=== PATIENT | female | born 1980 | race African-American/Black ===

== ENCOUNTER 2020-10-04 12:31 | Day surgery (SDC) | payer OTHER, SELFPAY ==
[2020-09-28 18:38] VITALS: BMI 45.1
--- NOTE | 2020-10-03 09:38 | P.CONAN_ITS ---
Documented by User: Theresa Reaganney 10/03/20 09:39 HPI - Anesthesia Eval Consult details Narrative: 40yo F for Upper Endoscopy [facility] Past Medical History Medical History COVID-19 (~05/2020) GERD (gastroesophageal reflux disease) Surgical History Surgical History Previous section (2007) Social History Social History Smoking Status: Never smoker Second Hand Smoke Exposure: No Use of substances other than those prescribed or required for medical reasons: No Advance Directives: No Advance Directives Information Provided: No Advance Directives on File: No Recently lost weight without trying: No Meds Allergies Allergy/AdvReac Type Severity Reaction Status Date / Time No Known Allergies Allergy Unverified 08/02/20 15:13 Environmental Allergy Unknown Uncoded 12/28/17 00:00 Exam Exam Date and Time: October 03, 2020 0938 Height,Weight and Vital Signs: Height 5 ft 6 in Weight 127.006 kg Assessment and Plan Assessment Anesthesia Assessment: Chart Reviewed Documented by User: Johnny Rivera MD 10/04/20 13:32 [facility] Past Medical History Medical History COVID-19 (~05/2020) GERD (gastroesophageal reflux disease) Surgical History Surgical History Previous section (2007) Social History Social History Smoking Status: Never smoker Second Hand Smoke Exposure: No Use of substances other than those prescribed or required for medical reasons: No Advance Directives: No Advance Directives Information Provided: No Advance Directives on File: No Recently lost weight without trying: No Meds Allergies Allergy/AdvReac Type Severity Reaction Status Date / Time No Known Allergies Allergy Unverified 08/02/20 15:13 Environmental Allergy Unknown Uncoded 12/28/17 00:00 Exam Airway Mallampati Class: III TM Dist: >3cm Neck ROM: Full Loose/Missing/Broken Teeth: No Heart: rrr Lungs: nl Other: ao Assessment and Plan Assessment Anesthesia Assessment: Anesthesia Plan Discussed and Chart Reviewed Final Anesthetic Review NPO: Yes ASA Class: III Final Preanesthetic Review: No Changes in Pt Med Stat, Meds/Allgs Chart Reviewed, Consent Obtained/Reviewed and Anes Risks/Benef Reviewed Patient Risk: Intermediate Procedure Risk: Low Anesthetic Plan Anesthetic Plan: MAC: Disposition: Standard PACU
[2020-10-04 12:55] VITALS: BP 122/79; PULSE 83; RESP 16; TEMP 36.3; O2SAT 97
[2020-10-04] MEDS: Lactated Ringers 1,000 ML 100 ML IVCONT (13:01)
--- NOTE | 2020-10-04 13:29 | MHC.SHP ---
Pre-Procedural Eval Section B Chief Complaint: Gerd Relevant Family History (Specify if Yes): No Relevant Social History: None Present Medications: see Short Stay Collaborative assessment Medical History: Significant History (obesity, HAYLEE, GERD) History of Previous Operations: Relevant previous surgery/procedure and date(s) () Allergies: Allergies Allergy/AdvReac Type Severity Reaction Status Date / Time No Known Allergies Allergy Unverified 08/02/20 15:13 Environmental Allergy Unknown Uncoded 12/28/17 00:00 Review of Systems Sugical H&P ROS: Negative: Constitution, Cardiovascular, Respiratory, Neurological, Psychiatric, Hem-Onc, Allergic/Immunologic, Gastrointestinal, Genitourinary, Musculoskeletal, Integumentary, Endocrine and Eyes/Ears/Nose/Throat Exam Surgical H&P Exam: Normal: HEENT, Normal: Heart, Normal: Lungs, Normal: Extremities, Normal: Abdomen, Normal: Skin and Normal: Neurological Plan Diagnosis/Plan: Unchanged Patient has been examined and remains a candidate for the planned procedure
--- NOTE | 2020-10-04 13:31 | PM.OP ---
Brief Operative Note Date of Service: 10/04/20 Pre-op diagnosis: GERD Post-op diagnosis: same Procedure: see op note Surgeon: Meche Dang MD Anesthesia: MAC Estimated blood loss (mL): 0 Condition: stable Disposition: PACU
--- NOTE | 2020-10-04 13:31 | W.PM.OPN ---
Operative Note Operative Note Date of Service: 10/04/20 Narrative: Procedure Description: EGD FLEXIBLE TRANSORAL UPPER GASTROINTESTINAL ENDOSCOPY UPPER ENDOSCOPY Consent: Indications for the procedure and potential complications of bleeding, perforation, reaction to medications and missed diagnosis were discussed with the patient and informed consent was obtained. Instrument: Olympus GIF H 190 J mid size upper endoscope Monitoring: Vital signs and clinical assessment, continuous EKG monitoring, Pulse oximetry, Carbon Dioxide monitoring and blood pressure monitoring were done throughout the procedure. Procedure: The patient was placed in the left lateral decubitis position and pre-procedure medications were administered and a bite block was placed. The endoscope was inserted into the mouth and advanced under direct vision to the third part of duodenum. A careful inspection was made as the upper endoscope was withdrawn including a retroflexed examination of the proximal stomach; Findings and interventions are described below. Findings: Larynx:normal Esophagus: GE junction at 38 cm, diaphragm hiatus at 38 cm, LA grade A esophagitis bx taken from GEJ and random esophagus in seperate jars Stomach: normal mucosa. Biopsies were obtained. Grade 2 flap valve on retroflexed examination of the cardia. Duodenum: Moderate severe duodenitis in bulb and proximal second part of duodenum also nodular area noted. Bx taken from nodular area in different jar and random bx taken of bulb and second part. Intervention: Biopsies as noted above Impression/Findings: duodenitis, possible peptic injury esophagitis PLAN: 1/ High dose PPi for 3 months 2/ if h pylori pos treat 3/ check nsaid hx 4/ repeat EGD in 3 months and also book with side viewer scope to assess papilla and second part in more detail, side viewer not readily available today.
[2020-10-04 14:06] LABS: COVID-19 Test Negative (Negative)
[2020-10-04 14:51] VITALS: BP 126/80; PULSE 110; RESP 16; TEMP 36.1; O2SAT 99
[2020-10-04 15:06] VITALS: BP 127/83; PULSE 81; RESP 16; O2SAT 100
[2020-10-04 15:18] VITALS: BP 123/79; PULSE 80; RESP 16; TEMP 36.3; O2SAT 99
== END 2020-10-04 15:44 | disposition home or self-care (01) ==
PROVIDERS: PCP Nurse Practitioner Family; Visit Provider Internal Medicine Gastroenterology
PROC: 0DJ08ZZ Inspection of Upper Intestinal Tract, Via Natural or Artificial Opening Endoscopic (ICD-10-PCS; CPT 43235; principal; 2020-10-04 13:30)
DX: K21.00 Gastro-esophageal reflux disease with esophagitis, without bleeding (principal); K29.80 Duodenitis without bleeding; K31.7 Polyp of stomach and duodenum; K44.9 Diaphragmatic hernia without obstruction or gangrene; Z86.19 Personal history of other infectious and parasitic diseases; Z79.899 Other long term (current) drug therapy
CPT/HCPCS: 43239; 87635; 88305; 88342

== ENCOUNTER → 2020-11-02 14:11 | Outpatient (BNVA) | payer OTHER, MEDICAID, SELFPAY | PROVIDERS: PCP Nurse Practitioner Family; Referring Provider Nurse Practitioner Family; Visit Provider Nurse Practitioner ==

== ENCOUNTER → 2021-01-30 13:22 | Outpatient (BNVA) | payer OTHER, MEDICAID, SELFPAY | PROVIDERS: PCP Nurse Practitioner Family; Visit Provider Nurse Practitioner ==

== ENCOUNTER 2021-06-04 16:57 | Outpatient (REF) | payer OTHER, MEDICAID, SELFPAY ==
--- NOTE | ~2021-06-04 | XR_ITS ---
EXAMINATION: XR FOOT, LEFT CLINICAL INFORMATION: Pain in left foot. COMPARISON: None TECHNIQUE: AP, lateral, and oblique views of the left foot. FINDINGS: No fracture. No dislocation. Joint spaces are normal. There is a small plantar calcaneal spur. XR/XR foot LT min 3V IMPRESSION: Small plantar calcaneal spur. Left foot is otherwise normal.
== END 2021-06-04 16:58 | disposition home or self-care (01) ==
LOC: HO.HMGCX 16:57
PROVIDERS: PCP Nurse Practitioner Family; Visit Provider Nurse Practitioner Family
DX: M79.672 Pain in left foot (principal)
CPT/HCPCS: 73630

== ENCOUNTER 2021-10-08 13:51 | Outpatient (REF) | payer OTHER, SELFPAY ==
[2021-10-08 15:19] LABS: Influenza A PCR NEGATIVE (Negative); Influenza B PCR NEGATIVE (Negative); Resp Syncy Virus RNA Qual PCR NEGATIVE (Negative); SARS COV2 PCR INHOUSE NEGATIVE (Negative)
== END 2021-10-08 13:52 | disposition home or self-care (01) ==
LOC: HO.LNP 13:51
PROVIDERS: Visit Provider Internal Medicine
DX: Z20.822 Contact with and (suspected) exposure to COVID-19 (principal); R43.9 Unspecified disturbances of smell and taste
CPT/HCPCS: 0241U

== ENCOUNTER 2022-12-03 11:34 | Outpatient (REF) | payer OTHER, SELFPAY ==
[2022-12-03 13:59] LABS: MANUAL DIFF FLAG NO
[2022-12-03 14:01] LABS: Appearance Urine Clear; Color Urine Yellow; Glucose Urine UA Negative (Negative); Leukocyte Esterase Urine Small (1+) (Negative); Nitrite Urine Negative (Negative); Specific Gravity - Urine 1.025 (1.005-1.025); UMIC TRIGGER UACC YES; Urine Blood Trace (Negative); Urine Ketones Negative (Negative); Urine Protein Negative (Neg-Trace)
[2022-12-03 14:08] LABS: Basophils Absolute Auto 0.1 X10*3/uL (0.0-0.2); Basophils Percent Auto 0.7 % (0-2); Eosinophils Absolute Auto 0.2 X10*3/uL (0.0-0.4); Eosinophils Percent Auto 2.2 % (0-4); Hematocrit 41.9 % (37.0-47.0); Hemoglobin 13.3 g/dl (12.0-16.0); Imm Gran Abs Auto 0.03 X10*3/uL (0.00-0.03); Imm Gran Pct Auto 0.3 % (0.0-0.4); Lymphocytes Absolute Auto 2.8 X10*3/uL (1.2-4.9); Mean Corpuscular HGB Conc 31.7 g/dl (31.0-35.0); Mean Corpuscular Hemoglobin 29.3 pg (27.0-33.0); Mean Corpuscular Volume 92.3 fL (80.0-98.0); Mean Platelet Volume 10.5 fL (9.4-12.3); Monocytes Absolute Auto 0.4 X10*3/uL (0.1-1.2); Monocytes Percent Auto 4.6 % (2-11); Neutrophils Absolute Auto 5.3 x10*3/uL (2.0-8.3); Neutrophils Percent Auto 60.2 % (45-73); Platelet Count 276 X10*3/uL (160-400); Red Blood Count 4.54 X10*6/uL (4.20-5.50); Red Cell Distribution Width 12.7 % (11.0-16.0); White Blood Count 8.8 X10*3/uL (4.8-10.8)
[2022-12-03 14:19] LABS: Bacteria Urine Trace (None Seen); Hyaline Casts Urine 0-2 /LPF (0-2); UACC Culture Trigger YES; WBC Urine 0-5 /HPF (0-5)
[2022-12-03 14:32] LABS: Alanine Aminotransferase 17 U/L (0-31); Albumin Level 3.9 g/dL (3.5-5.0); Alkaline Phosphatase 75 U/L (39-117); Anion Gap 10 (12-20); Aspartate Amino Transferase 20 U/L (5-31); Bilirubin Total 1.3 mg/dL (0.0-1.0); Blood Urea Nitrogen 11 mg/dL (9-16); Carbon Dioxide 26 mmol/L (22-29); Chloride 106 mmol/L (96-108); Cholesterol 108 mg/dL; Estimated Glomerular Filt Rate > 60; Glucose Fasting 90 mg/dL (60-99); HDL Cholesterol 39 mg/dL; LDL Cholesterol Calculated 61 mg/dl; Potassium 4.3 mmol/L (3.3-5.1); Sodium 138 mmol/L (135-145); Total Protein 7.1 g/dL (6.5-8.0); Triglycerides 42 mg/dL
[2022-12-03 14:39] LABS: TSH reflex Free T4 2.23 uIU/mL (0.32-4.0)
== END 2022-12-03 11:35 | disposition home or self-care (01) ==
LOC: HO.HMGCLDS 11:34
PROVIDERS: PCP Nurse Practitioner Family; Visit Provider Nurse Practitioner Family
DX: R00.2 Palpitations (principal)
CPT/HCPCS: 36415; 80053; 80061; 81001; 81003; 84443; 85025; 87086

== ENCOUNTER → 2022-12-26 07:48 | Outpatient (REF) | payer OTHER, SELFPAY ==
--- NOTE | 2022-12-26 07:52 | HM_ITS ---
Conclusion: 1. Patient was monitored for total period of 4 days and 22 hours 2. Baseline was normal sinus rhythm with average heart of 93 beats per minute 3. No significant pauses or bradycardia noted 4. Rare PACs noted 5. Total of 2210 PVCs accounting for 0.58% total beats account for occasional PVCs 6. Patient reported 4 events which correlated with sinus rhythm MTDD
--- NOTE | 2022-12-26 07:52 | CA_ITS ---
Transthoracic Echocardiogram Patient (Last, First, Middle): Silvana Ruiz M Gender: Female Date of : 1980 Age: 42 Procedure Date: 12/26/2022 Procedure Type: Transthoracic Echocardiogram Location: OP Height: 167.64 cm Weight: 116.12 kg BSA: 2.22 m2 Heart Rate: 78 bpm BP: 122 / 78 mmHg Surgical Territory Manager: SB Referring MD: Herman Clark [facility] Elevator Installer Apprentice: Elmer Moraes MD Symptoms: Z82.49 - Family history of ischemic heart disease and other diseases of ... Study Quality: Adequate ECG Rhythm: Sinus Conclusions: - Essentially normal study Findings Left Ventricle Normal left ventricular size, thickness, and systolic function. The visually estimated ejection fraction is between 60-65%. Spectral Doppler is indicative of a normal filling pattern. Right Ventricle Normal right ventricular cavity size and systolic function. Atria Both atria are normal in size. Interatrial shunt cannot be excluded. Aortic Valve Normal aortic valve structure and function. There is no aortic valve stenosis. There is no aortic valve regurgitation. Mitral Valve Normal mitral valve structure and function. There is trace mitral valve regurgitation. There is no mitral valve stenosis. Pulmonic Valve The pulmonic valve is likely normal. Tricuspid Valve Normal tricuspid valve structure. Tricuspid regurgitation envelope is inadequate for calculation of right ventricular systolic pressure. Normal right atrial pressure. Great Vessels All visible segments of the aorta are normal in size. The pulmonary artery was not well visualized. Venous The inferior vena cava is normal in size and collapses greater than 50% with inspiration. Pericardium/Pleural There is no evidence of pericardial effusion. Prior Study Comparison No significant change compared to prior study dated: 12/08/2017. Measurements 2D Linear Measurements IVSd: 1.11 0.6-0.9/0.6-1.0 cm LVIDd: 3.70 3.9-5.3/4.2-5.9 cm LVIDd Index: 1.67 2.4-3.2/2.2-3.1 cm/m2 LVIDs: 2.45 2.0-3.6 cm LVPWd: 0.72 0.7-1.1 cm LA Diam: 3.60 2.7-3.8/3.0-4.0 cm LAIDs Index: 1.62 1.5-2.3 cm/m2 LV Mass: 123.29 67-162/88-224 g LV Mass Index: 55.54 43-95/49-115 g/m2 LVOT Diam: 2.30 3.0+(-)1.3 cm 2D Systolic Function EF 4C: 59.80 >55% EF 2C: 64.40 >55% EF BiP: 62.20 >55% Mitral Valve MV Pk E: 1.20 MV PK A: 0.66 MV Decel Time: 188.00 E/A: 1.80 E'Lateral: 12.10 E'Medial: 13.70 E/E' Med: 8.80 E/E' Lat: 9.90 PHT: 55.00 MVA PHT: 4.00 Decel Treutlen: 6.41 Aortic Valve AoV Pk Ketan: 1.40 AoV Pk Grad: 8.00 KIAN: 3.65 LVOT LVOT Pk Ketan: 1.23 LVOT Mn Ketan: 0.75 LVOT VTI: 0.24 LVOT Pk Grad: 6.00 LVOT Mn Grad: 3.00 LVOT Diam: 2.30 LVOT Area: 4.15 Diastolic Function MV Pk E: 1.20 MV Pk A: 0.66 E/A: 1.80 E'Medial: 13.70 E/E' Med: 8.80 E' Laterial: 12.10 E/E' Lat: 9.90 Right Ventricle TAPSE (mm): 25.30 TVS' Ketan: 14.80 Tricuspid Valve RA Press: 3.00 Great Vessels Aorta Sinus of Valsalva: 2.70 2.0-3.[address] Ridge: 2.19 1.7-3.4 cm Ao Asc: 2.80 2.1-3.4 cm Pulmonary Veins Pulm Vein S/D 1.30 Pulmonary Valve PV Pk Ketan: 1.27 Peak PV Grad: 6.00 Updated in Other Vendor System with Status of Final Elmer Moraes MD electronically signed on 12/27/2022 1:55:38 PM with status of Final
== END ==
LOC: HO.CARD 07:48
PROVIDERS: PCP Nurse Practitioner Family; Visit Provider Nurse Practitioner Family
DX: R00.2 Palpitations (principal); Z82.49 Family history of ischemic heart disease and other diseases of the circulatory system
CPT/HCPCS: 93242; 93306

== ENCOUNTER → 2022-12-31 07:48 | Outpatient (REF) | payer OTHER, SELFPAY ==
--- NOTE | ~2022-12-31 | NM_ITS ---
Exercise Myocardial perfusion study Indication: Family history of ischemic heart disease to evaluate for myocardial ischemia Technique: The patient was brought in for an exercise perfusion study on 12/31/2022. Patient performed exercise as per Anurag protocol and was injected 40 mCi of sestamibi was given intravenously one target HR was achieved. Images were obtained using the SPECT gamma camera interlaced with the gating device. Images were obtained in supine position. Resting perfusion study was performed on 01/06/2023. Patient was administered 40 mCi of sestamibi intravenously at rest. Images were then obtained in supine position. Images obtained with and without CT attenuation. Total DLP 186 mGy-cm. Images were processed with the software and compared side to side in short axis, horizontal long axis and vertical long axis views. Findings: The stress perfusion study showed non attenuated images show some thinning of the distal lateral wall and inferoapical wall of the LV myocardium with minimal thinning of the inferior wall. Attenuation corrected images show normal uptake of radiotracer in all segments of LV myocardium.. The gated study shows normal LV systolic function with calculated LVEF of 63%. LV cavity is normal in size. The gated study shows normal systolic wall thickening and contraction of all segments. There is no transient ischemic dilation. Resting study shows non attenuated images show moderately reduced uptake in the distal lateral wall and mildly reduced uptake in the lateral wall of the LV myocardium. Attenuation corrected images show thinning of the distal anterior wall of the LV myocardium.. Gating at rest reveals normal systolic wall motion with ejection fraction at 54%. The findings are consistent with likely normal myocardial perfusion. NM/NM cardiolite stress test Impression: 1. Normal myocardial perfusion 2. Gated LVEF is 63% 3. Transient ischemic dilatation not present Stress EKG is negative for ischemia
--- NOTE | 2022-12-31 07:52 | CA_ITS ---
Acquisition Time: 2022-12-31 07:57:29 Total Exercise Time: 00:05:03 Test Indications: Z82.49 Medications: SEE H Protocol: SUSHMA Max HR: 169 BPM 94% of Pred: 179 BPM Max BP: 148/072 mmHG Max Work Load: 7.0 METS Exercise stress test with exercise 5 min 3 sec of Sushma protocol, achieving 92% MPHR, with mild sob, no chest discomfort, with isolated PVC at rest and in recovery, with normotensive response to exercise, without EKG changes meeting criteria for ischemia. Nuclear images pending. Test reviewed with Dr Obrien. Referred By: Herman Clark Overread By: JULISSA BHATTI
== END ==
LOC: HO.CARD 07:48
PROVIDERS: Visit Provider Nurse Practitioner Family
DX: R00.2 Palpitations (principal); R06.02 Shortness of breath; Z82.49 Family history of ischemic heart disease and other diseases of the circulatory system
CPT/HCPCS: 78452; 93017; A9500

== ENCOUNTER 2023-04-23 14:00 | Outpatient (REF) | payer OTHER, SELFPAY | END 2023-04-23 14:01 | disposition home or self-care (01) | LOC: HO.SH 14:00 | PROVIDERS: Visit Provider Nurse Practitioner Family | DX: H90.3 Sensorineural hearing loss, bilateral (principal) | CPT/HCPCS: 92557; 92567; 92588; 92700 ==

== ENCOUNTER 2023-07-21 09:47 | Outpatient (AMB) | payer OTHER, SELFPAY ==
[2023-07-21 10:01] VITALS: BP 100/68; PULSE 72; O2SAT 98; BMI 43.0
--- NOTE | 2023-07-21 10:01 | MHC.PC.OV ---
Vital Signs 07/21/23 10:01 Height 5 ft 6 in Weight 266 lb 4 oz BMI 43.0 BP 100/68 Blood Pressure Location Rt brachial Position Sitting Pulse 72 Pulse Source Pulse Oximeter Pulse Oximetry (%) 98 Oxygen Delivery Method Room Air Intake Visit Reasons: 6m follow up Allergies No Known Allergies Allergy (Verified 07/21/23 10:04) Environmental Allergy (Unknown, Uncoded 07/21/23 10:04) none Tobacco use date assessed: 07/21/23 Dental Screening Dental Screen Date: 07/21/23 Did you have a dental visit in the last 12 months?: Yes Did you have a dental problem in the last 6 months where you did not have access to dental care?: No Was dental information given to patient?: Patient has dentist HPI 6m follow up HPI Details Pt c/o increased anxiety and panic. She reports being very anxious about her health and is afraid she is going to . team spoke with pt and will set her up with a psychiatrist and therapist. Denies any SI and HI. Was mentioning tachycardia/palpitations, previous holter showed 4 documented episodes, which correlated to NSR/ PFSH Medical History COVID-19 (~05/2020) GERD (gastroesophageal reflux disease) Surgical History History of esophagogastroduodenoscopy (EGD) Previous section (2007) Family History Father Seizure HTN (hypertension) Diabetes Mother Diabetes HTN (hypertension) S/P triple vessel bypass Daughter Mental health disorder Social History Housing: Apartment Alcohol intake: current Alcohol intake frequency: does not drink Patient Tobacco Use Status: Never used Tobacco e-Cigarette/Vaping Use: Never Used Second Hand Smoke Exposure: No service: No Current occupational status: employed Current occupation: [employer] Current occupational exposures/hazards: Yes Cognitive needs: No Hearing needs: No Vision needs: No Questionnaire Thrive Questionnaire Date Thrive assessed: 01/22/23 PA-7 AMB Questionnaire PA-7 Date PA - 7 assessed: 01/22/23 Source: Developed by Drs. Artie Wheeler, Serina Torres, Jase Sandoval and colleagues, with an educational dennise from [employer]. Review of Systems Const Reports as per HPI Physical exam (Primary Care) Vital Signs: Last Vital Signs Pulse 72 07/21/23 10:01 BP 100/68 07/21/23 10:01 Pulse Ox 98 07/21/23 10:01 Oxygen Delivery Method Room Air 07/21/23 10:01 BMI result Body Mass Index 43.0 Tobacco/Smoking Status: Tobacco use Status Tobacco use date assessed 07/21/23 07/21/23 10:06 Patient Tobacco Use Status Never used Tobacco 07/21/23 10:06 e-Cigarette/Vaping Use Never Used 07/21/23 10:06 Thrive Assessment: Date of Thrive Assessment Date Thrive assessed 01/22/23 07/21/23 10:06 Const General: cooperative Nutritional Appearance: obese morbidly obese Orientation/consciousness: patient oriented x3 Resp Effort & Inspection: normal respiratory effort Auscultation: clear to auscultation bilaterally Cardio Rate: regular rate Rhythm: regular rhythm Heart sounds: S1 normal heart sound present and S2 normal heart sound present Neuro General: patient oriented x3 Psych Appearance: grossly normal Mental Status: mental status grossly normal Speech and movement: Normal speech and movement present Affect: normal affect Attitude: cooperative Thought process: Normal thought process present Thought content: Normal thought content present Insight: Good insight present (Psych) Judgement: Good judgement present (Psych) Assessment and Plan Assessment & Plan (1) Anxiety about dying: Code(s): F41.8 - Other specified anxiety disorders Plan: psychiatrist and therapist Plan The patient agreed to the use of a emergency medicine medical director for this encounter. Scribed for JAYCEE Bond by uSe Wheeler emergency medicine medical director, on 07/21/2023 at 10:10 EST. Coding Level of Care Code Est Pt Level 3 (28409) Diagnoses Anxiety about dying F41.8
== END 2023-07-21 10:52 | disposition home or self-care (01) ==
PROVIDERS: Visit Provider Nurse Practitioner Family
DX: F41.8 Other specified anxiety disorders (principal)
CPT/HCPCS: 99213

== ENCOUNTER 2023-08-12 12:53 | Outpatient (AMB) | payer OTHER, SELFPAY ==
--- NOTE | 2023-08-12 13:52 | AM.OFFWIN_ITS ---
Intake Vital Signs 08/12/23 13:56 Height 5 ft 6 in Weight 266 lb BMI 42.9 BP 120/80 Blood Pressure Location Rt brachial Position Sitting Pulse 89 Pulse Source Pulse Oximeter Temp 97.1 F Temp Source Temporal Artery Scan Pulse Oximetry (%) 99 Oxygen Delivery Method Room Air Intake Visit Reasons: EP RT FT ?Sprain [phone] Intake Note: Pt states she was walking at the [employer] yesterday when she started experiencing right foot pain. Pt states she is not able to walk on her right foot. Patient Tobacco Use Status: Never used Tobacco Allergies No Known Allergies Allergy (Verified 08/12/23 13:52) Environmental Allergy (Unknown, Uncoded 08/12/23 13:52) none Do you need a note to return to daycare/school/sports/work: Yes HPI EP RT FT ?Sprain [phone] HPI Details 43-year-old female patient presents toda with right lateral foot pain. This started yesterday while walking a large distance while at the [employer] fair. 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 She denies any trauma to foot. 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 She was recently started on Pyroxicam, however has not started this yet. Denies any swelling, cracking, or weakness of right foot/ankle. [facility] Medical History COVID-19 (~05/2020) GERD (gastroesophageal reflux disease) Surgical History History of esophagogastroduodenoscopy (EGD) Previous section (2007) Family History Father Seizure HTN (hypertension) Diabetes Mother Diabetes HTN (hypertension) S/P triple vessel bypass Daughter Mental health disorder Social History Housing: Apartment Alcohol intake: current Alcohol intake frequency: does not drink Patient Tobacco Use Status: Never used Tobacco e-Cigarette/Vaping Use: Never Used Second Hand Smoke Exposure: No service: No Current occupational status: employed Current occupation: [employer] Current occupational exposures/hazards: Yes Cognitive needs: No Hearing needs: No Vision needs: No Review of Systems Const All systems reviewed & are unremarkable except as noted in HPI and below Physical Exam Vital Signs: Last Vital Signs Temp 97.1 F 08/12/23 13:56 Pulse 89 08/12/23 13:56 BP 120/80 08/12/23 13:56 Pulse Ox 99 08/12/23 13:56 Oxygen Delivery Method Room Air 08/12/23 13:56 BMI result Body Mass Index 42.9 Const General: cooperative, healthy appearing and no acute distress Resp Effort & Inspection: normal respiratory effort and able to speak in complete sentences Skin General skin exam: no rashes or lesions noted Extrem Right lower extremity: normal to inspection, no joint enlargement and foot (pain with dorsiflexion and with ambulation lat right ankle/talus region) Details: normal capillary refill Psych Appearance: grossly normal Mental Status: mental status grossly normal Speech and movement: Normal speech and movement present Assessment & Plan Assessment & Plan (1) Right ankle pain: Code(s): M25.571 - Pain in right ankle and joints of right foot Qualifiers: Chronicity: acute Qualified Code(s): M25.571 - Pain in right ankle and joints of right foot Plan: Right lateral ankle/foot pain, just inferior to right lateral malleolus. X-ray obtained in office does not reveal any fractures. This is likely overuse injury/plantar fasciitis. I applied Matti wrap to patient's ankle/foot, and encouraged her to start previously prescribed Piroxicam. I also advised her to ice and elevate the extremity this evening, and provided her with a work note to stay home tomorrow. She does have a precision aircraft systems assembler who she sees regularly, and I encouraged she follow-up with this provider or her PCP as needed if pain does not improve with time and conservative measures. She verbalizes understanding and agrees to plan. XR: Moderate sized enthesopathic spur at the plantar fascial origin on the calcaneus. Coding Level of Care Code Est Pt Level 3 (53336) Diagnoses Acute right ankle pain M25.571 Chronicity: acute
[2023-08-12 13:56] VITALS: BP 120/80; PULSE 89; TEMP 36.2; O2SAT 99; BMI 42.9
== END 2023-08-12 14:52 | disposition home or self-care (01) ==
PROVIDERS: PCP Nurse Practitioner Family; Visit Provider Nurse Practitioner Family
DX: M25.571 Pain in right ankle and joints of right foot (principal)
CPT/HCPCS: 99213

== ENCOUNTER 2023-08-12 14:20 | Outpatient (REF) | payer OTHER, SELFPAY ==
--- NOTE | ~2023-08-12 | XR_ITS ---
EXAMINATION: XR ANKLE, RIGHT CLINICAL INFORMATION: Pain in the right ankle and joints of the right foot. COMPARISON: None available. TECHNIQUE: AP, lateral, and mortise views of the right ankle. FINDINGS: No fracture. Alignment is anatomic. No erosions. Joint spaces are maintained. Moderate sized enthesopathic spur is present at the plantar fascial origin on the calcaneus. XR/XR ankle RT min 3V IMPRESSION: Moderate sized enthesopathic spur at the plantar fascial origin on the calcaneus.
== END 2023-08-12 14:21 | disposition home or self-care (01) ==
LOC: HO.HMGCX 14:20
PROVIDERS: Visit Provider Nurse Practitioner Family
DX: M25.571 Pain in right ankle and joints of right foot (principal)
CPT/HCPCS: 73610

== ENCOUNTER 2023-09-24 09:09 | Outpatient (REF) | payer OTHER, SELFPAY ==
[2023-09-24 11:16] LABS: MANUAL DIFF FLAG NO
[2023-09-24 11:27] LABS: Basophils Absolute Auto 0.1 X10*3/uL (0.0-0.2); Basophils Percent Auto 0.7 % (0-2); Eosinophils Absolute Auto 0.1 X10*3/uL (0.0-0.4); Hematocrit 41.7 % (37.0-47.0); Hemoglobin 13.4 g/dl (12.0-16.0); Imm Gran Abs Auto 0.02 X10*3/uL (0.00-0.03); Imm Gran Pct Auto 0.3 % (0.0-0.4); Lymphocytes Absolute Auto 2.1 X10*3/uL (1.2-4.9); Lymphocytes Percent Auto 30.7 % (20-40); Mean Corpuscular HGB Conc 32.1 g/dl (31.0-35.0); Mean Corpuscular Hemoglobin 29.4 pg (27.0-33.0); Mean Corpuscular Volume 91.4 fL (80.0-98.0); Mean Platelet Volume 10.5 fL (9.4-12.3); Monocytes Absolute Auto 0.3 X10*3/uL (0.1-1.2); Monocytes Percent Auto 4.5 % (2-11); Neutrophils Absolute Auto 4.3 x10*3/uL (2.0-8.3); Neutrophils Percent Auto 61.8 % (45-73); Platelet Count 250 X10*3/uL (160-400); Red Blood Count 4.56 X10*6/uL (4.20-5.50); Red Cell Distribution Width 12.9 % (11.0-16.0); White Blood Count 6.9 X10*3/uL (4.8-10.8)
[2023-09-24 11:34] LABS: Appearance Urine Clear; Color Urine Yellow; Glucose Urine UA Negative (Negative); Leukocyte Esterase Urine Small (1+) (Negative); Nitrite Urine Negative (Negative); PH 5.5 (5.0-9.0); UMIC TRIGGER UACC YES; Urine Blood Moderate (2+) (Negative); Urine Ketones Negative (Negative); Urine Protein Negative (Neg-Trace)
[2023-09-24 11:54] LABS: Bacteria Urine 1+ (None Seen); Hyaline Casts Urine 0-2 /LPF (0-2); UACC Culture Trigger YES
[2023-09-24 12:01] LABS: Alanine Aminotransferase 11 U/L (0-31); Albumin Level 3.7 g/dL (3.5-5.0); Alkaline Phosphatase 72 U/L (39-117); Anion Gap 10 (12-20); Aspartate Amino Transferase 15 U/L (5-31); Bilirubin Total 0.7 mg/dL (0.0-1.0); Blood Urea Nitrogen 11 mg/dL (9-16); Calcium 8.8 mg/dL (8.4-10.2); Carbon Dioxide 27 mmol/L (22-29); Chloride 107 mmol/L (96-108); Cholesterol 106 mg/dL (<200); Estimated Glomerular Filt Rate > 60; Glucose Fasting 96 mg/dL (60-99); HDL Cholesterol 42 mg/dL (>40); LDL Cholesterol Calculated 57 mg/dL (<100); Potassium 4.3 mmol/L (3.3-5.1); Sodium 140 mmol/L (135-145); TSH reflex Free T4 2.37 uIU/mL (0.32-4.0); Total Protein 7.5 g/dL (6.5-8.0); Triglycerides 39 mg/dL (<150)
== END 2023-09-24 09:10 | disposition home or self-care (01) ==
LOC: HO.HMGCLDS 09:09
PROVIDERS: PCP Nurse Practitioner Family; Visit Provider Nurse Practitioner Family
DX: Z00.00 Encounter for general adult medical examination without abnormal findings (principal); N39.0 Urinary tract infection, site not specified; Z13.220 Encounter for screening for lipoid disorders; Z13.0 Encounter for screening for diseases of the blood and blood-forming organs and certain disorders involving the immune mechanism; Z13.29 Encounter for screening for other suspected endocrine disorder
CPT/HCPCS: 36415; 80053; 80061; 81001; 84443; 85025; 87086

== ENCOUNTER 2023-10-14 14:50 | Outpatient (AMB) | payer OTHER, SELFPAY ==
--- NOTE | 2023-10-14 14:53 | A.OFFPC_ITS ---
Vital Signs 10/14/23 14:55 Height 5 ft 6 in Weight 274 lb BMI 44.2 BP 108/68 Blood Pressure Location Rt brachial Position Sitting Pulse 89 Pulse Source Pulse Oximeter Pulse Oximetry (%) 98 Oxygen Delivery Method Room Air Intake Visit Reasons: [place]ow plantar fasciotomy left foot, 10/28 Intake Note: Patient here for preop for left foot Bartow plantar fasciotomy. No EKG needed. Needs: CBC w/diff and BMP Allergies No Known Allergies Allergy (Verified 10/14/23 14:56) Environmental Allergy (Unknown, Uncoded 10/14/23 14:56) none Tobacco use date assessed: 07/21/23 HPI Bartow plantar fasciotomy left foot, 10/28 HPI Details Pt is here for a pre-op evaluation. She is scheduled to undergo a topaz plantar fasciotomy of the left foot on 10/28. Labs were already performed. Will do an EKG in office. UA showed UTI which was treated with macrobid. UA in office today showed no signs of infection, but did show micro-hematuria. She denies hx of kidney stones or current menstruation. She has never smoked. Will order urine culture and cytology. Will also refer to urology. Pt denies any fever, chills, flank pain, hematuria, and dysuria. Pt is medically cleared for surgery in an ambulatory setting. [facility] Medical History COVID-19 (~05/2020) GERD (gastroesophageal reflux disease) Surgical History History of esophagogastroduodenoscopy (EGD) Previous section (2007) Family History Father Seizure HTN (hypertension) Diabetes Mother Diabetes HTN (hypertension) S/P triple vessel bypass Daughter Mental health disorder Social History Housing: Apartment Alcohol intake: current Alcohol intake frequency: does not drink Patient Tobacco Use Status: Never used Tobacco e-Cigarette/Vaping Use: Never Used Second Hand Smoke Exposure: No service: No Current occupational status: employed Current occupation: [employer] Current occupational exposures/hazards: Yes Cognitive needs: No Hearing needs: No Vision needs: No Questionnaire Thrive Questionnaire Date Thrive assessed: 01/22/23 PA-7 AMB Questionnaire PA-7 Date PA - 7 assessed: 01/22/23 Source: Developed by Drs. Artie Wheeler, Serina Torres, Jase Sandoval and colleagues, with an educational dennise from [employer]. Review of Systems Const Denies chills and Denies fever(s) Eyes Denies blurry vision ENT Denies vertigo, Denies dizziness and Denies sore throat Card Denies chest pain at rest, Denies chest pain with activity, Denies diaphoresis, Denies dyspnea and Denies dyspnea on exertion Resp Denies cough, Denies dyspnea, Denies dyspnea on exertion and Denies wheezing GI Denies abdominal pain, Denies melena, Denies hematochezia, Denies diarrhea and Denies loose stools Denies hematuria Musc Denies numbness and Denies tingling Skin/Breast Denies lesions Neuro Denies vertigo, Denies dizziness, Denies numbness and Denies tingling Psych Denies anxiety, Denies depression, Denies homicidal ideation, Denies suicidal ideation and Denies other (substance abuse) Aller/Immun Denies wheezing Physical exam (Primary Care) Vital Signs: Last Vital Signs Pulse 89 10/14/23 14:55 BP 108/68 10/14/23 14:55 Pulse Ox 98 10/14/23 14:55 Oxygen Delivery Method Room Air 10/14/23 14:55 BMI result Body Mass Index 44.2 Tobacco/Smoking Status: Tobacco use Status Tobacco use date assessed 07/21/23 10/14/23 14:59 Patient Tobacco Use Status Never used Tobacco 10/14/23 14:59 e-Cigarette/Vaping Use Never Used 10/14/23 14:59 Thrive Assessment: Date of Thrive Assessment Date Thrive assessed 01/22/23 10/14/23 14:59 Const General: cooperative Nutritional Appearance: obese morbidly obese Orientation/consciousness: patient oriented x3 Neck Neck: Yes no lymphadenopathy Resp Effort & Inspection: normal respiratory effort Auscultation: clear to auscultation bilaterally Cardio Rate: regular rate Rhythm: regular rhythm Heart sounds: S1 normal heart sound present, S2 normal heart sound present and Murmur heart sound present systolic (faint) Neuro General: patient oriented x3 and moves all extremities Psych Appearance: grossly normal Mental Status: mental status grossly normal Speech and movement: Normal speech and movement present Affect: normal affect Attitude: cooperative Thought process: Normal thought process present Thought content: Normal thought content present Insight: Good insight present (Psych) Judgement: Good judgement present (Psych) Results AMB Urinalysis, Automated UA Leukoctes 0 Arturo/uL Last Edit by Michael White [facility] on 10/14/23 15:54 UA Nitrite Negative Last Edit by NoelleHawa White [facility] on 10/14/23 15:54 UA Urobilinogen 0.2 mg/dL Last Edit by NoelleJaclyn White [facility] on 10/14/23 15:54 UA Protein 0 mg/dL Last Edit by NoelleHawa White [facility] on 10/14/23 15:54 UA pH 5.5 Last Edit by NoelleHawa White [facility] on 10/14/23 15:54 UA Blood 200 Bg/uL Last Edit by Michael White [facility] on 10/14/23 15:54 UA Specific [place] 1.030 Last Edit by NoelleHawa White [facility] on 10/14/23 15:54 UA Ketone Negative Last Edit by Michael White [facility] on 10/14/23 15:54 UA Bilirubin 0 mg/dL Last Edit by NoelleHawa White [facility] on 10/14/23 15:54 UA Glucose 0 mg/dL Last Edit by NoelleHawa White [facility] on 10/14/23 15:54 Results Reviewed Results Reviewed: Laboratory Last Values Urine pH (Auto) 5.5 10/14/23 15:51 Specific [place] (Auto) 1.030 10/14/23 15:51 Urine Protein (Auto) 0 mg/dL 10/14/23 15:51 Glucose (UA)(Auto) 0 mg/dL 10/14/23 15:51 Urine Ketones (Auto) Negative 10/14/23 15:51 Urine Blood (Auto) 200 Bg/uL 10/14/23 15:51 Urine Nitrite (Auto) Negative 10/14/23 15:51 Urine Bilirubin (Auto) 0 mg/dL 10/14/23 15:51 Urine Urobilinogen (Auto) 0.2 mg/dL 10/14/23 15:51 Leukocyte Esterase (Auto) 0 Arturo/uL 10/14/23 15:51 Assessment and Plan Assessment & Plan (1) Pre-op evaluation: Code(s): Z01.818 - Encounter for other preprocedural examination Plan: EKG done in office, labs already done (2) Microscopic hematuria: Code(s): R31.29 - Other microscopic hematuria Plan The patient agreed to the use of a medical program specialist for this encounter. Scribed for ZACHERY Bond- by Sue Wheeler medical program specialist, on 10/14/2023 at 15:30 EST. Orders: Orders AMB EKG-In Office Today Z01.818 - Encounter for other preprocedural examination AMB Urinalysis Automated Today Z13.9 - Encounter for screening, unspecified Urine Cytology Today R31.29 - Other microscopic hematuria Urine Culture Today R31.29 - Other microscopic hematuria US retroperitoneal comp Today R31.29 - Other microscopic hematuria Referrals Urology Referral R31.29 - Other microscopic hematuria Coding Level of Care Code Est Pt Prev Care 40-64y(14369) Diagnoses Pre-op evaluation Z01.818 Microscopic hematuria R31.29
[2023-10-14 14:55] VITALS: BP 108/68; PULSE 89; O2SAT 98; BMI 44.2
== END 2023-10-14 17:54 | disposition home or self-care (01) ==
PROVIDERS: PCP Nurse Practitioner Family; Visit Provider Nurse Practitioner Family
DX: R31.29 Other microscopic hematuria (principal); Z01.818 Encounter for other preprocedural examination
CPT/HCPCS: 81003; 93000; 99214

== ENCOUNTER 2023-10-14 16:48 | Outpatient (REF) | payer OTHER, SELFPAY ==
[2023-10-15 12:08] LABS: Urine Cytology See Pathology rpt
== END 2023-10-14 16:49 | disposition home or self-care (01) ==
LOC: HO.LAB 16:48
PROVIDERS: Visit Provider Nurse Practitioner Family
DX: R31.29 Other microscopic hematuria (principal)
CPT/HCPCS: 87086; 88112

== ENCOUNTER 2023-11-10 14:42 | Outpatient (REF) | payer OTHER, SELFPAY ==
--- NOTE | ~2023-11-10 | US_ITS ---
EXAMINATION: US RETROPERITONEAL COMPLETE (RENAL) CLINICAL INFORMATION: Other microscopic hematuria. COMPARISON: Ultrasound abdomen complete 08/15/2020 and 01/08/2017. CT abdomen and pelvis without contrast 12/19/2016. TECHNIQUE: Real-time imaging of the kidneys and bladder. FINDINGS: RIGHT KIDNEY: 11.1 x 3.5 x 5.8 cm (SAG x AP x TRV). The kidney is normal in size, contour, and echogenicity. Renal cortical thickness is normal. No calculi or focal parenchymal lesions. No hydronephrosis. LEFT KIDNEY: 9.6 x 4.5 x 4.4 cm (SAG x AP x TRV). The kidney is normal in size, contour, and echogenicity. Renal cortical thickness is normal. No calculi or focal parenchymal lesions. No hydronephrosis. BLADDER: Well distended and normal. Bilateral ureteral jets are demonstrated. Prevoid bladder volume is 145 mL. Postvoid bladder volume is 0.9 mL. US/US retroperitoneal comp IMPRESSION: Normal exam.
== END 2023-11-10 14:43 | disposition home or self-care (01) ==
LOC: HO.US 14:42
PROVIDERS: PCP Nurse Practitioner Family; Visit Provider Nurse Practitioner Family
DX: R31.29 Other microscopic hematuria (principal)
CPT/HCPCS: 76770

== ENCOUNTER 2023-11-20 08:55 | Outpatient (AMB) | payer OTHER, SELFPAY ==
[2023-11-20 09:37] VITALS: BP 120/80; PULSE 80; TEMP 36.4; O2SAT 97; BMI 44.5
--- NOTE | 2023-11-20 09:37 | MHC.OFFWIV ---
Intake Vital Signs 11/20/23 09:37 Height 5 ft 6 in Weight 276 lb BMI 44.5 BP 120/80 Blood Pressure Location Lt brachial Position Sitting Pulse 80 Pulse Source Pulse Oximeter Temp 97.5 F Temp Source Temporal Artery Scan Pulse Oximetry (%) 97 Oxygen Delivery Method Room Air Intake Visit Reasons: EP, right groin pain ([phone]) Intake Note: pt is here today for rt groin pain started Thursday Patient Tobacco Use Status: Never used Tobacco Allergies No Known Allergies Allergy (Verified 11/20/23 10:00) Environmental Allergy (Unknown, Uncoded 11/20/23 10:00) none Medication List - Last Reconciled 11/20/23 by Niles Lopes MD medroxyprogesterone 150 mg IM [id number] omeprazole 20 mg PO DAILY sertraline 50 mg PO DAILY Do you need a note to return to daycare/school/sports/work: No HPI EP, right groin pain ([phone]) HPI Details 43-year-old female presents to the office for a sick visit. Patient was practicing 1 of her dense moves and hurt her right groin in the process. She has pain in the inguinal area which is worse went she tries to twist her leg. She is having pain while sleeping at night. [facility] Medical History COVID-19 (~05/2020) GERD (gastroesophageal reflux disease) Surgical History History of esophagogastroduodenoscopy (EGD) Previous section (2007) Family History Father Seizure HTN (hypertension) Diabetes Mother Diabetes HTN (hypertension) S/P triple vessel bypass Daughter Mental health disorder Social History Housing: Apartment Alcohol intake: current Alcohol intake frequency: does not drink Patient Tobacco Use Status: Never used Tobacco e-Cigarette/Vaping Use: Never Used Second Hand Smoke Exposure: No service: No Current occupational status: employed Current occupation: [employer] Current occupational exposures/hazards: Yes Cognitive needs: No Hearing needs: No Vision needs: No Physical Exam Vital Signs: Last Vital Signs Temp 97.5 F 11/20/23 09:37 Pulse 80 11/20/23 09:37 BP 120/80 11/20/23 09:37 Pulse Ox 97 11/20/23 09:37 Oxygen Delivery Method Room Air 11/20/23 09:37 BMI result Body Mass Index 44.5 Extrem Other: Exam done in the presence of a female medical administrative specialist Right hip: Pain on external rotation, tenderness on palpation over the adductors of the thigh. Assessment & Plan Assessment & Plan (1) Right hip pain: Code(s): M25.551 - Pain in right hip Plan: Muscle relaxant added to the regimen. Heating pad suggested. Coding Level of Care Code Est Pt Level 3 (79298) Diagnoses Right hip pain M25.551
== END 2023-11-20 10:17 | disposition home or self-care (01) ==
PROVIDERS: PCP Nurse Practitioner Family; Visit Provider Internal Medicine
DX: M25.551 Pain in right hip (principal)
CPT/HCPCS: 99213

== ENCOUNTER 2023-12-10 09:12 | Outpatient (AMB) | payer OTHER, SELFPAY ==
--- NOTE | 2023-12-10 09:13 | A.OFFVIS_ITS ---
Intake Intake Visit Reasons: Microscopic hematuria Intake Note: NEW Patient presents today to established treatment for Microscopic Hematuria: Meds- None Allergies to Antibiotic- No Known Allergies Blood Thinner- None Fleet Administrative Assistant Required: No Accompanied by: Mother Allergies No Known Allergies Allergy (Verified 12/10/23 09:14) Environmental Allergy (Unknown, Uncoded 12/10/23 09:14) none HPI HPI Comments History of Present Illness Details Silvana is a 43 y/o who is here for evaluation for microscopic hematuri The patient denies urinary frequency, nocturia, gross hematuria, dysuria. She is sexually active, denies history of kidney stones, denies history of nicotine use. I have reviewed chart, imaging renal sono 11/10/23-- WNL, urine culture 09/24/23-- lactobaccillus. I have discussed workup to include FU for cystoscopy evaluation. Plan:fu office cysto [facility] Medical History COVID-19 (~05/2020) GERD (gastroesophageal reflux disease) Surgical History Hx of foot surgery History of esophagogastroduodenoscopy (EGD) Previous section (2007) Family History Father Seizure HTN (hypertension) Diabetes No family history of cancer Mother Diabetes HTN (hypertension) S/P triple vessel bypass Daughter Mental health disorder No family history of cancer Social History Housing: Apartment Alcohol intake: current Alcohol intake frequency: does not drink Patient Tobacco Use Status: Never used Tobacco e-Cigarette/Vaping Use: Never Used Second Hand Smoke Exposure: No service: No Current occupational status: employed Current occupation: [employer] Current occupational exposures/hazards: Yes Cognitive needs: No Hearing needs: No Vision needs: No Review of Systems Const All systems reviewed & are unremarkable except as noted in HPI and below Reports no additional complaints Eyes Reports no additional complaints ENT Reports no additional complaints Card Denies dyspnea Resp Denies cough and Denies dyspnea GI Reports no additional complaints Reports no additional complaints Musc Reports no additional complaints Skin/Breast Denies rash and Denies unusual bruising Neuro Reports no additional complaints Psych Reports no additional complaints Endo Reports no additional complaints Shahram/Lymph Reports no additional complaints Aller/Immun Reports no additional complaints Physical Exam Const General: cooperative, healthy appearing and no acute distress Nutritional Appearance: overweight Orientation/consciousness: patient oriented x3 HEENT Head: Yes normal to inspection, Yes normocephalic and Yes atraumatic Eyes Conjunctivae: conjunctivae normal Neck Neck: Yes normal visual inspection and Yes trachea midline Chest Chest palpation & inspection: normal inspection of the chest Resp Effort & Inspection: normal respiratory effort Cardio Rate: regular rate GI Inspection: Yes normal to inspection Skin General skin exam: no rashes or lesions noted Neuro General: patient oriented x3 Extrem General: No edema Psych Appearance: grossly normal Results AMB Urinalysis, Automated UA Leukoctes 500 Arturo/uL Last Edit by SUDHA Caba on 12/10/23 09:32 3+ Jesus Evans 12/10/23 09:32 UA Nitrite Negative Last Edit by SUDHA Caba on 12/10/23 09:32 UA Urobilinogen 0.2 mg/dL Last Edit by SUDHA Caba on 12/10/23 09:3 2 UA Protein 15 mg/dL Last Edit by SUDHA Caba on 12/10/23 09:32 UA pH 6.0 Last Edit by SUDHA Caba on 12/10/23 09:32 UA Blood 200 Bg/uL Last Edit by SUDHA Caba on 12/10/23 09:32 3+ Jesus Evans 12/10/23 09:32 UA Specific [place] 1.025 Last Edit by SUDHA Caba on 12/10/23 09: 32 UA Ketone Negative Last Edit by SUDHA Caba on 12/10/23 09:32 UA Bilirubin 0 mg/dL Last Edit by SUDHA Caba on 12/10/23 09:32 UA Glucose 0 mg/dL Last Edit by SUDHA Caba on 12/10/23 09:32 Results Reviewed Results Reviewed: Laboratory Last Values Urine pH (Auto) 6.0 12/10/23 09:25 Specific [place] (Auto) 1.025 12/10/23 09:25 Urine Protein (Auto) 15 mg/dL 12/10/23 09:25 Glucose (UA)(Auto) 0 mg/dL 12/10/23 09:25 Urine Ketones (Auto) Negative 12/10/23 09:25 Urine Blood (Auto) 200 Bg/uL 12/10/23 09:25 Urine Nitrite (Auto) Negative 12/10/23 09:25 Urine Bilirubin (Auto) 0 mg/dL 12/10/23 09:25 Urine Urobilinogen (Auto) 0.2 mg/dL 12/10/23 09:25 Leukocyte Esterase (Auto) 500 Arturo/uL 12/10/23 09:25 Date of Service: 11/10/23 EXAMINATION: US RETROPERITONEAL COMPLETE (RENAL) CLINICAL INFORMATION: Other microscopic hematuria. COMPARISON: Ultrasound abdomen complete 08/15/2020 and 01/08/2017. CT abdomen and pelvis without contrast 12/19/2016. TECHNIQUE: Real-time imaging of the kidneys and bladder. FINDINGS: RIGHT KIDNEY: 11.1 x 3.5 x 5.8 cm (SAG x AP x TRV). The kidney is normal in size, contour, and echogenicity. Renal cortical thickness is normal. No calculi or focal parenchymal lesions. No hydronephrosis. LEFT KIDNEY: 9.6 x 4.5 x 4.4 cm (SAG x AP x TRV). The kidney is normal in size, contour, and echogenicity. Renal cortical thickness is normal. No calculi or focal parenchymal lesions. No hydronephrosis. BLADDER: Well distended and normal. Bilateral ureteral jets are demonstrated. Prevoid bladder volume is 145 mL. Postvoid bladder volume is 0.9 mL. US/US retroperitoneal comp IMPRESSION: Normal exam. Assessment & Plan Assessment & Plan (1) Microscopic hematuria: Code(s): R31.29 - Other microscopic hematuria Plan FU office cysto Orders: Orders AMB Urinalysis Automated 12/10/23 Z13.9 - Encounter for screening, unspecified Urine Culture 12/10/23 N39.0 - Urinary tract infection, site not specified Urine Cytology 12/10/23 R31.29 - Other microscopic hematuria Patient Instructions: The patient had an opportunity to ask questions regarding treatment plan. All questions were answered. Imaging, Laboratory studies and physical exam results were discussed and reviewed in detail. No major barriers to understanding were identified. The patient expressed understanding and agreement with the above treatment plan. The patient is aware they should contact our office by phone for worsening of their current condition or the appearance of new symptoms. Compliance is encouraged with any medications and followup testing that is ordered. It is a privilege to be allowed the opportunity to participate in the urologic care of your patient. If you have any questions or concerns regarding treatment for the above conditions please do not hesitate to contact me. The office telephone contact is [phone]. This note is constructed in part using voice recognition software. While every effort has been made to ensure accuracy blueprint blocker errors may have been included. Yours sincerely, Morro Hunt MD Coding Level of Care Code New Pt Level 3 (52099) Diagnoses Microscopic hematuria R31.29
== END 2023-12-10 09:52 | disposition home or self-care (01) ==
PROVIDERS: PCP Nurse Practitioner Family; Visit Provider Urology
DX: R31.29 Other microscopic hematuria (principal)
CPT/HCPCS: 99203

== ENCOUNTER 2023-12-10 09:12 | Outpatient (REF) | payer OTHER, SELFPAY ==
[2023-12-10 19:21] LABS: Urine Cytology See Pathology rpt
== END 2023-12-10 09:13 | disposition home or self-care (01) ==
LOC: HO.LAB 09:12
PROVIDERS: PCP Nurse Practitioner Family; Visit Provider Urology
DX: N39.0 Urinary tract infection, site not specified (principal); R31.29 Other microscopic hematuria
CPT/HCPCS: 81003; 87086; 87147; 88112

== ENCOUNTER 2024-01-22 14:21 | Outpatient (AMB) | payer OTHER, SELFPAY ==
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
== END 2024-01-22 16:22 | disposition home or self-care (01) ==
PROVIDERS: PCP Nurse Practitioner Family; Visit Provider Urology
DX: R31.29 Other microscopic hematuria (principal); R30.0 Dysuria; Z13.9 Encounter for screening, unspecified; N32.9 Bladder disorder, unspecified
CPT/HCPCS: 52000; 99214

== ENCOUNTER → 2024-01-22 14:21 | Outpatient (BNVA) | payer OTHER, SELFPAY | PROVIDERS: PCP Nurse Practitioner Family; Visit Provider Urology | DX: R31.29 Other microscopic hematuria (principal); R30.0 Dysuria; N32.9 Bladder disorder, unspecified | CPT/HCPCS: 52000; 81003 ==

== ENCOUNTER 2024-02-04 16:23 | Outpatient (AMB) | payer OTHER, SELFPAY ==
[2024-02-04 16:30] VITALS: BP 118/72; PULSE 83; O2SAT 99; BMI 45.2
--- NOTE | 2024-02-04 16:30 | MHC.PC.OV ---
Vital Signs 02/04/24 16:30 Height 5 ft 6 in Weight 280 lb BMI 45.2 BP 118/72 Blood Pressure Location Lt brachial Position Sitting Pulse 83 Pulse Source Pulse Oximeter Pulse Oximetry (%) 99 Oxygen Delivery Method Room Air Intake Visit Reasons: Annual PE Intake Note: pt is here for annual exam Community Service Representative Required: No Accompanied by: Self / Same As Patient Allergies No Known Allergies Allergy (Verified 02/04/24 16:34) Environmental Allergy (Unknown, Uncoded 01/22/24 15:34) none Tobacco use date assessed: 02/04/24 Dental Screening Dental Screen Date: 02/04/24 Did you have a dental visit in the last 12 months?: Yes Did you have a dental problem in the last 6 months where you did not have access to dental care?: No Was dental information given to patient?: Patient has dentist HPI Annual PE HPI Details Pt is here for a PE. Will order labs. 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 Pt reports not getting her mammo yet, reinforced importance of this, order placed. Poor nutrition, obese, will refer to dietitian. Pt has been in the bariatric program, did not like it. [facility] Medical History COVID-19 (~05/2020) GERD (gastroesophageal reflux disease) Surgical History Hx of foot surgery History of esophagogastroduodenoscopy (EGD) Previous section (2007) Family History Father Seizure HTN (hypertension) Diabetes No family history of cancer Mother Diabetes HTN (hypertension) S/P triple vessel bypass Daughter Mental health disorder No family history of cancer Social History Housing: Apartment Alcohol intake: current Alcohol intake frequency: does not drink Patient Tobacco Use Status: Never used Tobacco e-Cigarette/Vaping Use: Never Used Second Hand Smoke Exposure: No service: No Current occupational status: employed Current occupation: [employer] Current occupational exposures/hazards: Yes Cognitive needs: No Hearing needs: No Vision needs: No Questionnaire PHQ-9 Over the last 2 weeks, how often have you been bothered by any of the following problems? 1. Little interest or pleasure in doing things: not at all 2. Feeling down, depressed, or hopeless: not at all 3. Trouble falling or staying asleep, or sleeping too much: not at all 4. Feeling tired or having little energy: several days 5. Poor appetite or overeating: not at all 6. Feeling bad about yourself - or that you are a failure or have let yourself or your family down: not at all 7. Trouble concentrating on things, such as reading the newspaper or watching television: several days 8. Moving or speaking so slowly that other people could have noticed. Or the opposite - being so fidgety or restless that you have been moving around a lot more than usual: several days 9. Thoughts that you would be better off or of hurting yourself in some way: not at all Total score: 3 Depression Screening Interpretation: Negative Depression Screening Done: Yes 67573 - PHQ-9 Billing: Yes Source: Developed by Drs. Artie Wheeler, Serina Torres, Jase Sandoval and colleagues, with an educational dennise from [employer]. Thrive Questionnaire Date Thrive assessed: 02/04/24 I am a: Patient What is your living situation today?: I have a steady place to live Within the past 12 months, did the food you bought not last and you didn't have the money to get more?: Never true Within the past 12 months, did you worry whether your food would run out before you got money to buy more?: Never true Do you have trouble paying for medicines?: No Do you have trouble getting transportation to medical appointments?: No Do you have trouble paying your heating and electricity bill?: No Do you have trouble taking care of your child, family member or friend?: No Do you have trouble with day-to-day activities such as bathing, preparing meals, shopping, managing finances, etc.?: No Are you currently unemployed and looking for a job?: No Are you interested in more education?: No Please select the resources that you would like help with: None Currently or been in a relationship where the following occur: no concerns reported THRIVE Score: 0 AUDIT C Alcohol Use Questionnaire (AUDIT-C) 1. How often do you have a drink containing alcohol?: Monthly or less 2. How many drinks containing alcohol do you have on a typical day when you are drinking?: 1 or 2 3. How often do you have six or more drinks on one occasion?: Never Total Score: 1 Score Reviewed/Action Taken: Yes PA-7 AMB Questionnaire PA-7 Date PA - 7 assessed: 02/04/24 Feeling nervous, anxious, or on edge: 1 = Several days Not being able to stop or control worryin = Several days Worrying too much about different things: 1 = Several days Trouble relaxin = Several days Being so restless that it is hard to sit still: 0 = Not at all Becoming easily annoyed or irritable: 1 = Several days Feeling afraid as if something awful might happen: 2 = More than half the days Total PA-7 score (0-4 normal; 5-9 mild; 10-14 moderate; 15-21 severe): 7 Source: Developed by Drs. Artie Wheeler, Serina Torres, Jase Sandoval and colleagues, with an educational dennise from [employer]. PA-7 Assessment Billing PA-7 Assessment Tool: PA-7 Assessment 94799 Review of Systems Const Denies chills and Denies fever(s) Eyes Denies blurry vision ENT Denies vertigo, Denies dizziness and Denies sore throat Card Denies chest pain at rest, Denies chest pain with activity, Denies diaphoresis, Denies dyspnea and Denies dyspnea on exertion Resp Denies cough, Denies dyspnea, Denies dyspnea on exertion and Denies wheezing GI Denies abdominal pain, Denies melena, Denies hematochezia, Reports constipation (intermittent, recommended OTC miralax), Denies diarrhea and Denies loose stools Denies hematuria Musc Denies numbness and Denies tingling Skin/Breast Denies lesions Neuro Denies vertigo, Denies dizziness, Denies numbness and Denies tingling Psych Denies anxiety, Denies depression, Denies homicidal ideation, Denies suicidal ideation and Denies other (substance abuse) Aller/Immun Denies wheezing Physical exam (Primary Care) Vital Signs: Last Vital Signs Pulse 83 02/04/24 16:30 BP 118/72 02/04/24 16:30 Pulse Ox 99 02/04/24 16:30 Oxygen Delivery Method Room Air 02/04/24 16:30 BMI result Body Mass Index 45.2 Tobacco/Smoking Status: Tobacco use Status Tobacco use date assessed 02/04/24 02/04/24 16:31 Patient Tobacco Use Status Never used Tobacco 02/04/24 16:31 e-Cigarette/Vaping Use Never Used 02/04/24 16:31 PHQ-9: PHQ-9 Score PHQ-9: Total score 3 02/04/24 16:52 Depression Screening Interpretation: Negative Thrive Assessment: Date of Thrive Assessment Date Thrive assessed 02/04/24 02/04/24 16:37 Currently or been in a relationship where the following occur: no concerns reported Const General: cooperative Nutritional Appearance: obese morbidly obese Orientation/consciousness: patient oriented x3 HENMT Head: Yes normal to inspection, Yes normocephalic and Yes atraumatic Ears: TM's normal bilaterally Eyes General: appearance normal, both eyes and all related structures Alignment and Position: alignment normal and position normal Neck Neck: Yes normal visual inspection and Yes no lymphadenopathy Thyroid: Thyroid normal Resp Effort & Inspection: normal respiratory effort Auscultation: clear to auscultation bilaterally Cardio Rate: regular rate Rhythm: regular rhythm Heart sounds: S1 normal heart sound present, S2 normal heart sound present and Murmur heart sound present systolic GI Palpation (GI): Soft to palpation and nontender Auscultation: normal bowel sounds Skin Rashes: no rashes Neuro General: patient oriented x3, moves all extremities, no focal motor deficits and deep tendon reflexes 2+ bilaterally Romberg Test: Negative Psych Appearance: grossly normal Mental Status: mental status grossly normal Speech and movement: Normal speech and movement present Affect: normal affect Attitude: cooperative Thought process: Normal thought process present Thought content: Normal thought content present Insight: Good insight present (Psych) Judgement: Good judgement present (Psych) Assessment and Plan Assessment & Plan (1) Physical exam: Code(s): Z00.00 - Encounter for general adult medical examination without abnormal findings Plan: labs ordered (2) Poor nutrition: Code(s): E63.9 - Nutritional deficiency, unspecified Plan: referred to dietitian (3) Obesity: Code(s): E66.9 - Obesity, unspecified Plan: referred to dietitian Orders: Orders Complete Blood Count Auto Diff Today Z00.00 - Encounter for general adult medical examination without abnormal findings UA CC w/rflx Micro + Cult Today Z00.00 - Encounter for general adult medical examination without abnormal findings MM screening mammo BI Today Z12.31 - Encounter for screening mammogram for malignant neoplasm of breast Comprehensive [facility]. Panel Fast Today Z00.00 - Encounter for general adult medical examination without abnormal findings TSH reflex Free T4 Today Z00.00 - Encounter for general adult medical examination without abnormal findings Lipid Panel Today Z00.00 - Encounter for general adult medical examination without abnormal findings Referrals Nutrition/Dietitian Referral E63.9 - Nutritional deficiency, unspecified, E66.9 - Obesity, unspecified Coding Level of Care Code Est Pt Prev Care 40-64y(62400) Diagnoses Physical exam Z00.00 Poor nutrition E63.9 Obesity E66.9 Additional Codes PA-7 Assessment Billing - PA-7 Assessment Tool: PA-7 Assessment [id number] ([id number])
== END 2024-02-04 17:20 | disposition home or self-care (01) ==
PROVIDERS: Visit Provider Nurse Practitioner Family
DX: Z00.00 Encounter for general adult medical examination without abnormal findings (principal); E63.9 Nutritional deficiency, unspecified; E66.9 Obesity, unspecified; Z68.42 Body mass index [BMI] 45.0-49.9, adult
CPT/HCPCS: 99396

== ENCOUNTER 2024-02-13 09:49 | Outpatient (REF) | payer OTHER, SELFPAY ==
--- NOTE | ~2024-02-13 | MM_ITS ---
EXAMINATION: MM SCREENING DIGITAL BREAST TOMOSYNTHESIS, BILATERAL CLINICAL INFORMATION: Screening. Asymptomatic. COMPARISON: Mammography: This is a baseline study. TECHNIQUE: Digital breast tomosynthesis is performed in both the craniocaudal and mediolateral oblique views along with computer-aided detection (CAD). Synthesized 2D images are generated from the tomosynthesis. FINDINGS: The breasts are almost entirely fatty (ACR BI-RADS breast composition Category a). There are no significant masses, abnormal calcifications, or other abnormalities. MM/MM tomosynthesis screening BI IMPRESSION: No mammographic evidence of malignancy. ASSESSMENT: BI-RADS BI-RADS 1 - Negative RECOMMENDATION: Routine annual mammography screening. 1 year F/U This examination should not preclude the clinical evaluation of a suspicious palpable abnormality. This patient's information was entered into a reminder system with a target due date for their next mammogram.
== END 2024-02-13 09:50 | disposition home or self-care (01) ==
LOC: HO.MAMMO 09:49
PROVIDERS: PCP Nurse Practitioner Family; Visit Provider Nurse Practitioner Family
DX: Z12.31 Encounter for screening mammogram for malignant neoplasm of breast (principal)
CPT/HCPCS: 77063; 77067

== ENCOUNTER → 2024-02-13 10:00 | Outpatient (BNV) | payer OTHER, SELFPAY | PROVIDERS: PCP Nurse Practitioner Family; Visit Provider Radiology Diagnostic Radiology | DX: Z12.31 Encounter for screening mammogram for malignant neoplasm of breast (principal) | CPT/HCPCS: 77063; 77067 ==

== ENCOUNTER 2024-02-13 10:20 | Outpatient (REF) | payer OTHER, SELFPAY ==
[2024-02-13 10:48] LABS: MANUAL DIFF FLAG NO
[2024-02-13 11:47] LABS: Basophils Percent Auto 0.5 % (0-2); Eosinophils Absolute Auto 0.2 X10*3/uL (0.0-0.4); Eosinophils Percent Auto 2.2 % (0-4); Hematocrit 40.8 % (37.0-47.0); Hemoglobin 13.5 g/dl (12.0-16.0); Imm Gran Abs Auto 0.02 X10*3/uL (0.00-0.03); Imm Gran Pct Auto 0.3 % (0.0-0.4); Lymphocytes Absolute Auto 2.4 X10*3/uL (1.2-4.9); Lymphocytes Percent Auto 32.8 % (20-40); Mean Corpuscular HGB Conc 33.1 g/dl (31.0-35.0); Mean Corpuscular Hemoglobin 29.6 pg (27.0-33.0); Mean Corpuscular Volume 89.5 fL (80.0-98.0); Monocytes Absolute Auto 0.4 X10*3/uL (0.1-1.2); Monocytes Percent Auto 5.3 % (2-11); Neutrophils Absolute Auto 4.3 x10*3/uL (2.0-8.3); Neutrophils Percent Auto 58.9 % (45-73); Platelet Count 286 X10*3/uL (160-400); Red Blood Count 4.56 X10*6/uL (4.20-5.50); Red Cell Distribution Width 12.9 % (11.0-16.0); White Blood Count 7.3 X10*3/uL (4.8-10.8)
[2024-02-13 11:57] LABS: Appearance Urine Clear; Color Urine Yellow; Glucose Urine UA Negative (Negative); Leukocyte Esterase Urine Negative (Negative); Nitrite Urine Negative (Negative); UMIC TRIGGER UACC YES; Urine Blood Moderate (2+) (Negative); Urine Ketones Negative (Negative); Urine Protein Negative (Neg-Trace)
[2024-02-13 11:58] LABS: Urine Cytology See Pathology rpt
[2024-02-13 12:02] LABS: Bacteria Urine Trace (None Seen); Hyaline Casts Urine 0-2 /LPF (0-2); Squamous Epithelial Cell Urine 0-2 /HPF (0-2); WBC Urine 0-5 /HPF (0-5)
[2024-02-13 12:36] LABS: Alanine Aminotransferase 15 U/L (0-31); Albumin Level 3.8 g/dL (3.5-5.0); Alkaline Phosphatase 82 U/L (39-117); Anion Gap 10 (12-20); Aspartate Amino Transferase 15 U/L (5-31); Bilirubin Total 0.8 mg/dL (0.0-1.0); Blood Urea Nitrogen 9 mg/dL (9-16); Carbon Dioxide 25 mmol/L (22-29); Chloride 109 mmol/L (96-108); Cholesterol 115 mg/dL (<200); Estimated Glomerular Filt Rate > 60; Glucose Fasting 89 mg/dL (60-99); HDL Cholesterol 43 mg/dL (>40); LDL Cholesterol Calculated 63 mg/dL (<100); Potassium 3.8 mmol/L (3.3-5.1); Sodium 140 mmol/L (135-145); Total Protein 7.7 g/dL (6.5-8.0); Triglycerides 46 mg/dL (<150)
[2024-02-13 12:51] LABS: TSH reflex Free T4 3.05 uIU/mL (0.32-4.0)
== END 2024-02-13 10:21 | disposition home or self-care (01) ==
LOC: HO.LAB 10:20
PROVIDERS: Nurse Practitioner Family; Visit Provider Urology
DX: Z00.00 Encounter for general adult medical examination without abnormal findings (principal); Z13.6 Encounter for screening for cardiovascular disorders; R31.29 Other microscopic hematuria
CPT/HCPCS: 36415; 80053; 80061; 81001; 81003; 84443; 85025; 88112

== ENCOUNTER 2024-03-01 09:51 | Day surgery (SDC) | payer OTHER, SELFPAY ==
--- NOTE | ~2024-03-01 | FL_ITS ---
EXAMINATION: XR FLUOROSCOPY WITH IMAGES CLINICAL INFORMATION: Retrograde urography. COMPARISON: Renal ultrasound dated 11/17/2023; CT abdomen and pelvis dated to 317. TECHNIQUE: Fluoroscopy Supervised By: Dr. Hunt. Fluoroscopy Time: 6.3 seconds. Cumulative Dose: 3.35 mGy. Images: 2. FINDINGS: The submitted images show contrast within the right intrarenal collecting system, renal pelvis and the proximal and distal right ureter. FL/FL guidance in OR IMPRESSION: Intraoperative fluoroscopic guidance is provided during right retrograde urography. Please see the patient's Operative Report for full procedural details.
[2024-03-01 10:39] LABS: UPreg QC Valid YES; Urine Pregnancy NEGATIVE (NEGATIVE)
--- NOTE | 2024-03-01 10:41 | HO.ANESPROP2 ---
[facility] Active Problems Active Problems: All Active Problems Lesion of bladder (Acute) Poor nutrition (Acute) Obesity (Acute) Microscopic hematuria (Acute) Pre-op evaluation (Acute) Anxiety about dying (Acute) Loss of hearing (Acute) Physical exam (Acute) Systolic murmur (Acute) Tachycardia (Acute) Dysuria (Acute) Family history of heart disease (Acute) Palpitations (Acute) Upper respiratory tract infection (Acute) Foot pain, left (Acute) Chronic gastritis (Acute) Chronic idiopathic constipation (Acute) GERD (gastroesophageal reflux disease) (Acute) Past Medical History Medical History COVID-19 (~05/2020) GERD (gastroesophageal reflux disease) Family History Family History Father Seizure HTN (hypertension) Diabetes No family history of cancer Mother Diabetes HTN (hypertension) S/P triple vessel bypass Daughter Mental health disorder No family history of cancer Family history of problems with anesthesia: No Surgical History Surgical History Hx of foot surgery History of esophagogastroduodenoscopy (EGD) Previous section (2007) History of Problems with Anesthesia: No Social History Social History Housing: Apartment Alcohol intake: current Alcohol intake frequency: does not drink Patient Tobacco Use Status: Never used Tobacco e-Cigarette/Vaping Use: Never Used Second Hand Smoke Exposure: No Advance Directives: No Advance Directives Information Provided: Yes service: No Current occupational status: employed Current occupation: [employer] Current occupational exposures/hazards: Yes Cognitive needs: No Hearing needs: No Vision needs: No Meds Allergies Allergy/AdvReac Type Severity Reaction Status Date / Time No Known Allergies Allergy Verified 02/04/24 16:34 Environmental Allergy Unknown none Uncoded 01/22/24 15:34 Active Medications: Current Medications Fentanyl (Fentanyl Citrate/Pf 100 Mcg/2 Ml Vial) 25 mcg IVPUSH Q5M PRN; Protocol PRN Reason: Pain, Moderate(Pain Scale 4-6) Stop: 03/01/24 14:52 Lactated Ringer's (Lr) 1,000 mls @ 50 mls/hr IVCONT .Q20H TITI Ondansetron HCl (Ondansetron Hcl 4 Mg/2 Ml Vial) 4 mg IVPUSH ONCE PRN PRN Reason: Nausea and Vomiting Stop: 03/01/24 14:53 Home Medications ?Medication ?Instructions ?Recorded ?Confirmed ?Last Taken ?Type medroxyprogesterone 150 mg/mL 150 mg IM [id number] 01/30/21 01/22/23 Unknown History intramuscular syringe Exam Pertinent Lab Results Pertinent Lab Results: Laboratory Tests 03/01/24 10:30 Urine Test NEGATIVE Airway Mallampati Class: I TM Dist: >3cm Neck ROM: Full Loose/Missing/Broken Teeth: No Heart: rrr Lungs: clear Assessment and Plan Final Anesthetic Review Family History of Problems with Anesthesia: No History of Problems with Anesthesia: No NPO: Yes ASA Class: I Anesthetic Plan Anesthetic Plan: GA
[2024-03-01 11:05] VITALS: BMI 44.0
[2024-03-01] MEDS: Lactated Ringers 1,000 ML 50 ML IVCONT (11:26)
--- NOTE | 2024-03-01 12:22 | P.CONAN_ITS ---
[facility] Active Problems Active Problems: All Active Problems Lesion of bladder (Acute) Poor nutrition (Acute) Obesity (Acute) Microscopic hematuria (Acute) Pre-op evaluation (Acute) Anxiety about dying (Acute) Loss of hearing (Acute) Physical exam (Acute) Systolic murmur (Acute) Tachycardia (Acute) Dysuria (Acute) Family history of heart disease (Acute) Palpitations (Acute) Upper respiratory tract infection (Acute) Foot pain, left (Acute) Chronic gastritis (Acute) Chronic idiopathic constipation (Acute) GERD (gastroesophageal reflux disease) (Acute) Past Medical History Medical History COVID-19 (~05/2020) GERD (gastroesophageal reflux disease) Family History Family History Father Seizure HTN (hypertension) Diabetes No family history of cancer Mother Diabetes HTN (hypertension) S/P triple vessel bypass Daughter Mental health disorder No family history of cancer Family history of problems with anesthesia: No Surgical History Surgical History Hx of foot surgery History of esophagogastroduodenoscopy (EGD) Previous section (2007) History of Problems with Anesthesia: No Social History Social History Housing: Apartment Alcohol intake: current Alcohol intake frequency: holidays/special occasions only Patient Tobacco Use Status: Never used Tobacco e-Cigarette/Vaping Use: Never Used Second Hand Smoke Exposure: No Are you DNR?: No Advance Directives: No Advance Directives Information Provided: Yes Nutrition Risks: No Nutritional Risk service: No Current occupational status: employed Current occupation: [employer] Current occupational exposures/hazards: Yes Cognitive needs: No Hearing needs: No Vision needs: No Meds Allergies Allergy/AdvReac Type Severity Reaction Status Date / Time No Known Allergies Allergy Verified 02/04/24 16:34 Environmental Allergy Unknown none Uncoded 01/22/24 15:34 Active Medications: Current Medications Fentanyl (Fentanyl Citrate/Pf 100 Mcg/2 Ml Vial) 25 mcg IVPUSH Q5M PRN; Protocol PRN Reason: Pain, Moderate(Pain Scale 4-6) Stop: 03/01/24 14:52 Lactated Ringer's (Lr) 1,000 mls @ 50 mls/hr IVCONT .Q20H TITI Last Admin: 03/01/24 11:26 Dose: 50 mls/hr Ondansetron HCl (Ondansetron Hcl 4 Mg/2 Ml Vial) 4 mg IVPUSH ONCE PRN PRN Reason: Nausea and Vomiting Stop: 03/01/24 14:53 Home Medications ?Medication ?Instructions ?Recorded ?Confirmed ?Last Taken ?Type medroxyprogesterone 150 mg/mL 150 mg IM [id number] 01/30/21 01/22/23 Unknown History intramuscular syringe Exam Height,Weight and Vital Signs: Height 5 ft 6 in Weight 123.74 kg Pertinent Lab Results Pertinent Lab Results: Laboratory Tests 03/01/24 10:30 Urine Test NEGATIVE Airway Mallampati Class: I TM Dist: >3cm Loose/Missing/Broken Teeth: No (rrr) Heart: rrr Lungs: clear Assessment and Plan Final Anesthetic Review Family History of Problems with Anesthesia: No History of Problems with Anesthesia: No NPO: Yes ASA Class: II Final Preanesthetic Review: No Changes in Pt Med Stat, Meds/Allgs Chart Reviewed, Consent Obtained/Reviewed and Anes Risks/Benef Reviewed Patient Risk: Intermediate Procedure Risk: Low Anesthetic Plan Anesthetic Plan: GA Disposition: Standard PACU
--- NOTE | 2024-03-01 12:36 | MHC.SHP ---
Pre-Procedural Eval Section A - 24 Hr Update-Section A only Date of Service: 03/01/24 The patient is an INPATIENT: No The patient has been examined within 24 hours of the surgical procedure. The History & Physical has been completed within 30 days and I have reviewed it.: Yes Section B - Complete if H&P > 30 days Chief Complaint: Bladder lesion Allergies: Allergies Allergy/AdvReac Type Severity Reaction Status Date / Time No Known Allergies Allergy Verified 02/04/24 16:34 Environmental Allergy Unknown none Uncoded 01/22/24 15:34 Plan Diagnosis/Plan: Unchanged I have reviewed the history and physical and performed a pertinent physical examination on my patient. No changes have occurred unless specified. Cystoscopy. Transurethral resection bladder lesion, random bladder biopsies. Discussed risks to include but not limited to, blood in the urine, burning with urination, urgency. Time Spent With Patient Time: Total time managing care of this patient today ____ minutes.
--- NOTE | 2024-03-01 14:52 | P.OP_ITS ---
Operative Note Operative Note Date of Service: 03/01/24 Narrative: PREOP DIAGNOSIS: Erythematous bladder lesion posterior wall POSTOP DIAGNOSIS: Erythematous bladder lesion posterior wall PROCEDURE: CYSTOSCOPY RIGHT RETROGRADE, TRANSURETHRAL RESECTION OF BLADDER TUMOR, BLADDER BIOPSIES BLADDER TUMOR, FULGURATION Anesthesia: General Surgeon Dr. Toni Matias Indications: Silvana is a 43-year-old female who is being evaluated for microscopic hematuria. Office cystoscopy noted erythematous flattened bladder lesion posterior wall Findings: Erythematous flattened bladder lesion posterior wall measuring approximately 3 cm in length Details of procedure: The patient was brought into the operating room placed on the OR table in supine position. 2 g of Ancef IV. General anesthesia was administered. The patient was repositioned into lithotomy position, prepped and draped in the usual sterile fashion. Time-out was done per protocol. 2% urojet placed. The 22 [place] cystoscope was passed transurethrally into the bladder. The right and left ureteral orifices were visualized. A right retrograde was done no filling defects were noted. Normal right retrograde. There was difficulty in angulating the open-ended catheter into the left ureteral orifice. Left retrograde was not done. Cold cup biopsies were done from the erythematous bladder lesion on the posterior wall. These were sent separately. The cystoscope was removed. 24 [place] resectoscope with obturator was passed transurethrally into the bladder. The loop resectoscope was used to resect the bladder tumor to send another biopsy specimen, muscle was visualized without evidence of perforation. The roller ball attachment was used to fulgurate the tumor. Once there was good hemostasis the resectoscope was removed. 2 % urojet placed. The patient was brought out of anesthesia and taken to recovery in stable condition. Complications: None Drains: None
[2024-03-01 14:54] VITALS: BP 132/88; PULSE 85; RESP 16; TEMP 36.9; O2SAT 95
[2024-03-01 14:59] VITALS: BP 136/68; PULSE 91; RESP 16; O2SAT 97
[2024-03-01 15:04] VITALS: BP 126/72; PULSE 84; RESP 18; O2SAT 97
[2024-03-01 15:09] VITALS: BP 134/81; PULSE 83; RESP 18; O2SAT 98
[2024-03-01 15:24] VITALS: BP 134/83; PULSE 75; RESP 20; TEMP 36.2; O2SAT 96
== END 2024-03-01 15:47 | disposition home or self-care (01) ==
PROVIDERS: Anesthesiology; PCP Nurse Practitioner Family; Visit Provider Urology
PROC: 0TBB8ZZ Excision of Bladder, Via Natural or Artificial Opening Endoscopic (ICD-10-PCS; CPT 52235; principal; 2024-03-01 11:50)
PROC: 0TJB8ZZ Inspection of Bladder, Via Natural or Artificial Opening Endoscopic (ICD-10-PCS; CPT 52000; 2024-03-01 11:50)
DX: N32.9 Bladder disorder, unspecified (principal); N30.20 Other chronic cystitis without hematuria; K21.9 Gastro-esophageal reflux disease without esophagitis; Z86.16 Personal history of COVID-19
CPT/HCPCS: 52235; 52204; 81025; 87086; 88305; C1769; J0461; J0690; J1100; J1885; J2250; J2405; J2704; J3010; Q9967

== ENCOUNTER → 2024-03-01 09:51 | Outpatient (BNV) | payer OTHER, SELFPAY | PROVIDERS: PCP Nurse Practitioner Family; Visit Provider Urology | DX: C67.8 Malignant neoplasm of overlapping sites of bladder (principal) | CPT/HCPCS: 52235 ==

== ENCOUNTER 2024-03-10 08:19 | Outpatient (AMB) | payer OTHER, SELFPAY ==
[2024-03-10 08:32] VITALS: BMI 44.5
--- NOTE | 2024-03-10 08:32 | A.OFFVIS_ITS ---
Intake VS Expanded 03/10/24 08:32 03/14/24 13:22 Height 5 ft 6 in 5 ft 6 in Weight 275 lb 9.245 oz 276 lb BMI 44.5 44.5 Intake Visit Reasons: Obesity/CONFIRMED Allergies No Known Allergies Allergy (Verified 02/04/24 16:34) Environmental Allergy (Unknown, Uncoded 01/22/24 15:34) none HPI Nutrition Presentation Details Pt presents for MNT for obesity and poor nutrition. Pt was referred by primary care provider, Kieran Clark highest wt at 280s, lowest wt at 240-250s Pt expresses interest in making diet modifications. Reports the majority of the meals are away from home at fast food restaurants. Posses cooking skills and reports owning various simple to use cooking equipment (airfryer, slow cooker, steamers and others Physical activity: daily life activities food frequency fruits: > 4 serving/d only in juice form vege: 0-1x/wk dairy: cheese mainly fish:not including fried foods : daily TXT-Vawfoda-Ip.Jeor Equation Height 5 ft 6 in Weight 276 lb Resting Metabolic Rate 1930.77 Calculated Activity Level Sedentary Calories Needed to Maintain Weight 2316.92 Diagnosis Nutrition problem #1 excessive energy intake As related to (etiology) #1 diagnosis As evidenced by (sign/symptom) #1 high BMI (44.5 (02/2024)) Monitoring/Goals Nutrition problem monitoring level of knowledge/skill, total PRO intake, total CHO intake, weight and oral fluids Nutrition goal/outcome wt loss 5lbs in 2 months and list 3 high fiber foods Outcome progress verbalized understanding Most Recent Diabetes Results: Cholesterol 115 mg/dL (<200) 02/13/24 HDL Cholesterol 43 mg/dL (>40) 02/13/24 Triglycerides 46 mg/dL (<150) 02/13/24 Creatinine 0.86 mg/dL (0.5-1.4) 02/13/24 Blood Urea Nitrogen 9 mg/dL (9-16) 02/13/24 Sodium 140 mmol/L (135-145) 02/13/24 Potassium 3.8 mmol/L (3.3-5.1) 02/13/24 Chloride 109 mmol/L (96-108) H 02/13/24 Carbon Dioxide 25 mmol/L (22-29) 02/13/24 Calcium 9.0 mg/dL (8.4-10.2) 02/13/24 AST 15 U/L (5-31) 02/13/24 ALT 15 U/L (0-31) 02/13/24 Total Protein 7.7 g/dL (6.5-8.0) 02/13/24 Albumin 3.8 g/dL (3.5-5.0) 02/13/24 PFSH Medical History COVID-19 (~05/2020) GERD (gastroesophageal reflux disease) Surgical History Hx of foot surgery History of esophagogastroduodenoscopy (EGD) Previous section (2007) Family History Father Seizure HTN (hypertension) Diabetes No family history of cancer Mother Diabetes HTN (hypertension) S/P triple vessel bypass Daughter Mental health disorder No family history of cancer Social History Housing: Apartment Alcohol intake: current Alcohol intake frequency: holidays/special occasions only Patient Tobacco Use Status: Never used Tobacco e-Cigarette/Vaping Use: Never Used Second Hand Smoke Exposure: No service: No Current occupational status: employed Current occupation: [employer] Current occupational exposures/hazards: Yes Cognitive needs: No Hearing needs: No Vision needs: No Assessment & Plan Assessment & Plan (1) Obesity: Code(s): E66.9 - Obesity, unspecified Plan: Wt: 125 Kg ( 02/2024 ) Est kcal needs as per MSJ: 2300 (40% carb, 30% protein/fat) Est fluid needs as per 25-30 ml/d: 3800 Est prot per day as per 1 g/kg bw: 125 Recommend fiber intake : 8-10 g per day and gradually increase to 25-28 g per day for women and 35-38 g for men or as tolerated Recommend sodium intake per day : less than 2000 mg Educated patient on: ( R = reviewed V = verbalizes understanding N/R = needs review N/A = not applicable * Food sources of carbohydrate, adequate serving sizes and its role in various health conditions: R * Differences between complex carbohydrates a simple carbohydrates, role of fib er in diet: R * Lean protein sources of foods: R * Differences between types of fats and role in diet (mono on saturated fat fatty acids, saturated fatty acids, trans fats): R basic low fat * Food sources of sodium in salt and healthy modifications for heart health in kidney health: NR * Vitamins and minerals: N/R * Healthy plate method concept: R * Physical activity: Benefits a precaution: N/R * (2) Poor nutrition: Code(s): E63.9 - Nutritional deficiency, unspecified Plan: Gradually work on balancing meals, including fiber rich foods in diet and foods with antioxidants Patient Instructions: Work on reducing on fried food items- use air fryer, steamer, opt for baked food items Include a side salad once a week instead of fries and try a home made meal once a week (using air fryer, slow cooker) keep a food record and bring to next follow up Coding Level of Care Code Nutr Indiv Intake (59574) Diagnoses Obesity E66.9 Poor nutrition E63.9 Time Spent (min) 45
[2024-03-14 13:22] VITALS: BMI 44.5
== END 2024-03-10 09:45 | disposition home or self-care (01) ==
PROVIDERS: PCP Nurse Practitioner Family; Visit Provider Dietitian, Registered
DX: E66.9 Obesity, unspecified (principal); E63.9 Nutritional deficiency, unspecified

== ENCOUNTER → 2024-03-10 08:19 | Outpatient (BNVA) | payer OTHER, SELFPAY | PROVIDERS: PCP Nurse Practitioner Family; Visit Provider Dietitian, Registered | DX: E66.9 Obesity, unspecified (principal); Z68.41 Body mass index [BMI] 40.0-44.9, adult; E63.9 Nutritional deficiency, unspecified; Z71.3 Dietary counseling and surveillance | CPT/HCPCS: 97802 ==

== ENCOUNTER 2024-03-11 15:58 | Outpatient (REF) | payer OTHER, SELFPAY ==
[2024-03-11 17:57] LABS: Appearance Urine Cloudy; Color Urine Yellow; Glucose Urine UA Negative (Negative); Leukocyte Esterase Urine Small (1+) (Negative); Nitrite Urine Negative (Negative); PH 5.5 (5.0-9.0); Specific Gravity - Urine >= 1.030 (1.005-1.025); UMIC TRIGGER UA YES; UMIC TRIGGER UACC YES; Urine Blood Large (3+) (Negative); Urine Ketones Trace mg/dL (Negative); Urine Protein 100 (2+) mg/dL (Neg-Trace)
[2024-03-11 18:00] LABS: Bacteria Urine 1+ (None Seen); Hyaline Casts Urine 0-2 /LPF (0-2); RBC Urine >20 /HPF (0-2); UACC Culture Trigger YES; WBC Urine 21-50 /HPF (0-5)
== END 2024-03-11 15:59 | disposition home or self-care (01) ==
LOC: HO.LAB 15:58
PROVIDERS: Absent Provider Nurse Practitioner Family; PCP Nurse Practitioner Family; Visit Provider Urology
DX: R31.29 Other microscopic hematuria (principal); R30.0 Dysuria
CPT/HCPCS: 81001; 87086

== ENCOUNTER 2024-03-31 11:37 | Outpatient (AMB) | payer OTHER, SELFPAY ==
--- NOTE | 2024-03-31 11:38 | A.OFFVIS_ITS ---
Intake Visit Reasons: TURBT/Bladder biopsy- follow up Intake Note: Patient presents today for TURBT/Bladder Biopy Results: Meds- None Allergies to Antibiotic- No Known Allergies Blood Thinner- None Assembler Camper Required: No Accompanied by: Mother Allergies No Known Allergies Allergy (Verified 02/04/24 16:34) Environmental Allergy (Unknown, Uncoded 01/22/24 15:34) none HPI Comments Details: 03/31/2024--Silvana is a 43-year-old female who was referred for microscopic hematuria office cystoscopy noted an irregular bladder lesion. She is status post cystoscopy bladder biopsy on 03/01/2024. The patient had an episode of gross hematuria after the biopsy. She was treated for urinary tract infection. I have reviewed pathology results-inflammatory, lymphoid aggregate, chronic cystitis. She has had history of UTIs. Follow-up in 9 months. Review of chart: 01/22/24--here for office cystoscopy. Urine cytology 12/10/2023--negative for malignant cells. Cystoscopy findings erythematous bladder lesion left posterior wall The patient states that her mother smoked in the home when she was a child. She had a UTI November that was treated by her PCP. Currently she denies irritative voiding symptoms. 12/10/23--Silvana is a 43 y/o who is here for evaluation for microscopic hematuria The patient denies urinary frequency, nocturia, gross hematuria, dysuria. She is sexually active, denies history of kidney stones, denies history of nicotine use. I have reviewed chart, imaging renal sono 11/10/23-- WNL, urine culture 09/24/23-- lactobaccillus. I have discussed workup to include FU for cystoscopy evaluation. [facility] Medical History COVID-19 (~05/2020) GERD (gastroesophageal reflux disease) Surgical History History of transurethral resection of bladder tumor (TURBT) Hx of foot surgery History of esophagogastroduodenoscopy (EGD) Previous section (2007) Family History Father Seizure HTN (hypertension) Diabetes No family history of cancer Mother Diabetes HTN (hypertension) S/P triple vessel bypass Daughter Mental health disorder No family history of cancer Social History Housing: Apartment Alcohol intake: current Alcohol intake frequency: holidays/special occasions only Patient Tobacco Use Status: Never used Tobacco e-Cigarette/Vaping Use: Never Used Second Hand Smoke Exposure: No service: No Current occupational status: employed Current occupation: [employer] Current occupational exposures/hazards: Yes Cognitive needs: No Hearing needs: No Vision needs: No Review of Systems Const All systems reviewed & are unremarkable except as noted in HPI and below Reports no additional complaints Eyes Reports no additional complaints ENT Reports no additional complaints Card Reports no additional complaints Resp Reports no additional complaints GI Reports no additional complaints Reports as per HPI Musc Reports no additional complaints Skin/Breast Reports system reviewed and no additional complaints, except as documented Neuro Reports no additional complaints Psych Reports no additional complaints Endo Reports no additional complaints Shahram/Lymph Reports no additional complaints Aller/Immun Reports no additional complaints Results AMB Urinalysis, Automated UA Leukoctes 0 Arturo/uL Last Edit by SUDHA Caba on 03/31/24 12:06 UA Nitrite Negative Last Edit by SUDHA Caba on 03/31/24 12:06 UA Urobilinogen 0.2 mg/dL Last Edit by SUDHA aCba on 03/31/24 12:0 6 UA Protein 15 mg/dL Last Edit by SUDHA Caba on 03/31/24 12:06 UA pH 5.5 Last Edit by SUDHA Caba on 03/31/24 12:06 UA Blood 200 Bg/uL Last Edit by SUDHA Caba on 03/31/24 12:06 3+ Jesus Evans 03/31/24 12:06 UA Specific [place] 1.025 Last Edit by SUDHA Caba on 03/31/24 12: 06 UA Ketone Negative Last Edit by SUDHA Caba on 03/31/24 12:06 UA Bilirubin 0 mg/dL Last Edit by SUDHA Caba on 03/31/24 12:06 UA Glucose 0 mg/dL Last Edit by SUDHA Caba on 03/31/24 12:06 Results Reviewed Results Reviewed: Collected: 03/01/24 [facility] Received: 03/02/24 Diagnosis Bladder, posterior wall lesion, transurethral resection: Partially denuded benign urothelium with marked chronic cystitis, reactive lymphoid follicles, and focal papillary hyperplasia; no evidence of malignancy; no muscularis propria present. Clinical History Bladder lesion Collected: 12/10/23 [facility] Received: 12/15/23 Diagnosis Urine: Negative for high-grade urothelial carcinoma. COMMENT: Examination of a monolayer preparation slide shows many benign superficial squamous cells with bacteria and degenerated inflammatory cells, and few benign urothelial cells. Assessment & Plan Assessment & Plan (1) Microscopic hematuria: Code(s): R31.29 - Other microscopic hematuria Category: Medical (2) Cystitis: Code(s): N30.90 - Cystitis, unspecified without hematuria Category: Medical (3) Recurrent UTI: Code(s): N39.0 - Urinary tract infection, site not specified Category: Medical Plan Follow-up in 9 months. Monitor urinary symptoms. Orders: Orders AMB Urinalysis Automated Today Z13.9 - Encounter for screening, unspecified Patient Instructions: The patient had an opportunity to ask questions regarding treatment plan. The patient expressed understanding and agreement with the above treatment plan. The patient is aware they should contact our office by phone for worsening of their current condition or the appearance of new symptoms. Compliance is encouraged with any medications and followup testing that is ordered. It is a privilege to be allowed the opportunity to participate in the urologic care of your patient. If you have any questions or concerns regarding treatment for the above conditions please do not hesitate to contact me. The office telephone contact is [phone]. This note is constructed in part using voice recognition software. While every effort has been made to ensure accuracy marketing regional consultant errors may have been included. Yours sincerely, Morro Hunt MD Coding Level of Care Code Est Pt Level 4 (60507) Diagnoses Microscopic hematuria R31.29 Cystitis N30.90 Recurrent UTI N39.0
== END 2024-03-31 12:27 | disposition home or self-care (01) ==
PROVIDERS: PCP Nurse Practitioner Family; Visit Provider Urology
DX: R31.29 Other microscopic hematuria (principal); N30.90 Cystitis, unspecified without hematuria; N39.0 Urinary tract infection, site not specified; Z13.9 Encounter for screening, unspecified
CPT/HCPCS: 99214

== ENCOUNTER → 2024-03-31 11:37 | Outpatient (BNVA) | payer OTHER, SELFPAY | PROVIDERS: PCP Nurse Practitioner Family; Visit Provider Urology | DX: N30.91 Cystitis, unspecified with hematuria (principal) | CPT/HCPCS: 81003 ==

== ENCOUNTER 2024-04-14 08:31 | Outpatient (AMB) | payer OTHER, SELFPAY ==
--- NOTE | 2024-04-14 08:34 | MHC.AMNUTRGE ---
VS Expanded 04/14/24 08:35 Height 5 ft 6 in Weight 269 lb 10.005 oz BMI 43.5 Intake Visit Reasons: Obesity/CONFIRMED Allergies No Known Allergies Allergy (Verified 02/04/24 16:34) Environmental Allergy (Unknown, Uncoded 01/22/24 15:34) none Nutrition Presentation Details: Pt presents for MNT f/u for obesity Pt reports working on reducing on sugars. Challenges: getting used to new routine Trying new foods : adding small amount of veg to the meals BS Monitoring Most Recent Diabetes Results: Cholesterol 115 mg/dL (<200) 02/13/24 HDL Cholesterol 43 mg/dL (>40) 02/13/24 Triglycerides 46 mg/dL (<150) 02/13/24 Creatinine 0.86 mg/dL (0.5-1.4) 02/13/24 Blood Urea Nitrogen 9 mg/dL (9-16) 02/13/24 Sodium 140 mmol/L (135-145) 02/13/24 Potassium 3.8 mmol/L (3.3-5.1) 02/13/24 Chloride 109 mmol/L (96-108) H 02/13/24 Carbon Dioxide 25 mmol/L (22-29) 02/13/24 Calcium 9.0 mg/dL (8.4-10.2) 02/13/24 AST 15 U/L (5-31) 02/13/24 ALT 15 U/L (0-31) 02/13/24 Total Protein 7.7 g/dL (6.5-8.0) 02/13/24 Albumin 3.8 g/dL (3.5-5.0) 02/13/24 [facility] Medical History COVID-19 (~05/2020) GERD (gastroesophageal reflux disease) Surgical History History of transurethral resection of bladder tumor (TURBT) Hx of foot surgery History of esophagogastroduodenoscopy (EGD) Previous section (2007) Family History Father Seizure HTN (hypertension) Diabetes No family history of cancer Mother Diabetes HTN (hypertension) S/P triple vessel bypass Daughter Mental health disorder No family history of cancer Social History Housing: Apartment Alcohol intake: current Alcohol intake frequency: holidays/special occasions only Patient Tobacco Use Status: Never used Tobacco e-Cigarette/Vaping Use: Never Used Second Hand Smoke Exposure: No service: No Current occupational status: employed Current occupation: [employer] Current occupational exposures/hazards: Yes Cognitive needs: No Hearing needs: No Vision needs: No Assessment & Plan Assessment & Plan (1) Obesity: Code(s): E66.9 - Obesity, unspecified Category: Medical Plan: Wt: 125 Kg ( 02/2024 ), 122.7 (03/2024) Est kcal needs as per MSJ: 2300 (40% carb, 30% protein/fat) Est fluid needs as per 25-30 ml/d: 3700 Est prot per day as per 1 g/kg bw: 123 Recommend fiber intake : 8-10 g per day and gradually increase to 25-28 g per day for women and 35-38 g for men or as tolerated Recommend sodium intake per day : less than 2000 mg Educated patient on: ( R = reviewed V = verbalizes understanding N/R = needs review N/A = not applicable Food sources of carbohydrate, adequate serving sizes and its role in various health conditions: R Differences between complex carbohydrates a simple carbohydrates, role of fiber in diet: R Lean protein sources of foods: R Differences between types of fats and role in diet (mono on saturated fat fatty acids, saturated fatty acids, trans fats): R basic low fat Food sources of sodium in salt and healthy modifications for heart health in kidney health: NR Vitamins and minerals: N/R Healthy plate method concept: R Physical activity: Benefits a precaution: N/R (2) Poor nutrition: Code(s): E63.9 - Nutritional deficiency, unspecified Category: Medical Plan: Gradually work on balancing meals, including fiber rich foods in diet and foods with antioxidants Patient Instructions: Continue working on reducing on sugar (soda/pastries and simliar) aim at including at least 2 fruits a day in Coding Level of Care Code Nutr Indiv Subseq (80578) Diagnoses Obesity E66.9 Poor nutrition E63.9 Time Spent (min) 25
[2024-04-14 08:35] VITALS: BMI 43.5
== END 2024-04-14 09:02 | disposition home or self-care (01) ==
PROVIDERS: PCP Nurse Practitioner Family; Visit Provider Dietitian, Registered
DX: E66.9 Obesity, unspecified (principal); E63.9 Nutritional deficiency, unspecified

== ENCOUNTER → 2024-04-14 08:31 | Outpatient (BNVA) | payer OTHER, SELFPAY | PROVIDERS: PCP Nurse Practitioner Family; Visit Provider Dietitian, Registered | DX: E66.9 Obesity, unspecified (principal); Z68.41 Body mass index [BMI] 40.0-44.9, adult; E63.9 Nutritional deficiency, unspecified; Z71.3 Dietary counseling and surveillance | CPT/HCPCS: 97803 ==

== ENCOUNTER 2024-06-23 09:52 | Outpatient (AMB) | payer OTHER, SELFPAY ==
[2024-06-23 10:02] VITALS: BMI 41.9
--- NOTE | 2024-06-23 10:02 | A.OFFVIS_ITS ---
VS Expanded 06/23/24 10:02 06/23/24 10:15 Height 5 ft 6 in 5 ft 6 in Weight 259 lb 14.8 oz 260 lb BMI 41.9 42.0 Intake Visit Reasons: OBESITY/CONFIRMED Allergies No Known Allergies Allergy (Verified 02/04/24 16:34) Environmental Allergy (Unknown, Uncoded 01/22/24 15:34) none Nutrition Presentation Details: Pt presents for MNT f/u for weight management Pt reports working on trying new foods and incorporating a variety of food and vegetables. Reports feeling great and motivated. Pt's sister is very supportive. typical meal fasting until 11 am sandwich (varies/ chicken/tuna/egg salad) with varies fruit/chips/smoothie dinner: squash butter or salad with cheese or noodle soup fruits/day: 2 dairy: 1-2 /day water: 24 -48 oz/day + smoothies or teas physical activity: daily life activities BS Monitoring Most Recent Diabetes Results: Cholesterol 115 mg/dL (<200) 02/13/24 HDL Cholesterol 43 mg/dL (>40) 02/13/24 Triglycerides 46 mg/dL (<150) 02/13/24 Creatinine 0.86 mg/dL (0.5-1.4) 02/13/24 Blood Urea Nitrogen 9 mg/dL (9-16) 02/13/24 Sodium 140 mmol/L (135-145) 02/13/24 Potassium 3.8 mmol/L (3.3-5.1) 02/13/24 Chloride 109 mmol/L (96-108) H 02/13/24 Carbon Dioxide 25 mmol/L (22-29) 02/13/24 Calcium 9.0 mg/dL (8.4-10.2) 02/13/24 AST 15 U/L (5-31) 02/13/24 ALT 15 U/L (0-31) 02/13/24 Total Protein 7.7 g/dL (6.5-8.0) 02/13/24 Albumin 3.8 g/dL (3.5-5.0) 02/13/24 HSO-Qupvdvw-Wr.Jeor Equation Height: 5 ft 6 in Weight: 260 lb Resting Metabolic Rate: 1853.35 Calculated Activity Level: Sedentary Calories Needed to Maintain Weight: 2224.02 PFSH Medical History COVID-19 (~05/2020) GERD (gastroesophageal reflux disease) Surgical History History of transurethral resection of bladder tumor (TURBT) Hx of foot surgery History of esophagogastroduodenoscopy (EGD) Previous section (2007) Family History Father Seizure HTN (hypertension) Diabetes No family history of cancer Mother Diabetes HTN (hypertension) S/P triple vessel bypass Daughter Mental health disorder No family history of cancer Social History Housing: Apartment Alcohol intake: current Alcohol intake frequency: holidays/special occasions only Patient Tobacco Use Status: Never used Tobacco e-Cigarette/Vaping Use: Never Used Second Hand Smoke Exposure: No service: No Current occupational status: employed Current occupation: [employer] Current occupational exposures/hazards: Yes Cognitive needs: No Hearing needs: No Vision needs: No Assessment & Plan Assessment & Plan (1) Obesity: Code(s): E66.9 - Obesity, unspecified Category: Medical Plan: Wt: 125 Kg ( 02/2024 ), 122.7 (03/2024), 118.2 kg (06/2024) Est kcal needs as per MSJ: 2300 (40% carb, 30% protein/fat) Est fluid needs as per 25-30 ml/d: 3700 Est prot per day as per 1 g/kg bw: 123 Recommend fiber intake : 8-10 g per day and gradually increase to 25-28 g per day for women and 35-38 g for men or as tolerated Recommend sodium intake per day : less than 2000 mg Educated patient on: ( R = reviewed V = verbalizes understanding N/R = needs review N/A = not applicable * Food sources of carbohydrate, adequate serving sizes and its role in various health conditions: R * Differences between complex carbohydrates a simple carbohydrates, role of fiber in diet: R * Lean protein sources of foods: R * Differences between types of fats and role in diet (mono on saturated fat fatty acids, saturated fatty acids, trans fats): R basic low fat * Food sources of sodium in salt and healthy modifications for heart health in kidney health: NR * Vitamins and minerals: N/R * Healthy plate method concept: R * Physical activity: Benefits a precaution: N/R * (2) Poor nutrition: Code(s): E63.9 - Nutritional deficiency, unspecified Category: Medical Plan: Gradually work on balancing meals, including fiber rich foods in diet and foods with antioxidants Patient Instructions: Include plant protein sources of foods (legumes in your salads and vegetable meal - see list of plant protein foods Have water with meals and snacks in place of sugary beverages Engage in walking , 30 min walk at least 2-3 times /wk Coding Level of Care Code Nutr Indiv Subseq (14683) Diagnoses Obesity E66.9 Poor nutrition E63.9 Time Spent (min) 30
[2024-07-06 13:18] VITALS: BMI 42.0
== END 2024-06-23 10:35 | disposition home or self-care (01) ==
PROVIDERS: PCP Nurse Practitioner Family; Visit Provider Dietitian, Registered
DX: E66.9 Obesity, unspecified (principal); E63.9 Nutritional deficiency, unspecified

== ENCOUNTER → 2024-06-23 09:52 | Outpatient (BNVA) | payer OTHER, SELFPAY | PROVIDERS: PCP Nurse Practitioner Family; Visit Provider Dietitian, Registered | DX: E66.9 Obesity, unspecified (principal); Z68.41 Body mass index [BMI] 40.0-44.9, adult; E63.9 Nutritional deficiency, unspecified; Z71.3 Dietary counseling and surveillance | CPT/HCPCS: 97803 ==

== ENCOUNTER 2024-08-02 08:16 | Outpatient (AMB) | payer OTHER, SELFPAY ==
[2024-08-02 08:17] VITALS: BP 110/70; PULSE 87; TEMP 36.8; O2SAT 97; BMI 43.9
--- NOTE | 2024-08-02 08:17 | MHC.OFFWIV ---
Intake Vital Signs 08/02/24 08:17 Height 5 ft 6 in Weight 272 lb BMI 43.9 BP 110/70 Blood Pressure Location Lt brachial Position Sitting Pulse 87 Pulse Source Pulse Oximeter Temp 98.3 F Temp Source Oral Pulse Oximetry (%) 97 Oxygen Delivery Method Room Air Intake Visit Reasons: EP sore throat Intake Note: Patient here for sore throat that started last night. Patient Tobacco Use Status: Never used Tobacco Allergies No Known Allergies Allergy (Verified 08/02/24 08:25) Environmental Allergy (Unknown, Uncoded 08/02/24 08:25) none Do you need a note to return to daycare/school/sports/work: No HPI HPI Comments History of Present Illness Details Patient is a 44-year-old female complaining of a sore throat since last night. She states she was eating some dinner and she noticed it was painful to swallow her food. She says her the pain is better when she is swallowing softer foods. She denies any fevers, cough, headaches or shortness of breath. She does state her daughter was diagnosed with COVID 5 days ago. [facility] Medical History COVID-19 (~05/2020) GERD (gastroesophageal reflux disease) Surgical History History of transurethral resection of bladder tumor (TURBT) Hx of foot surgery History of esophagogastroduodenoscopy (EGD) Previous section (2007) Family History Father Seizure HTN (hypertension) Diabetes No family history of cancer Mother Diabetes HTN (hypertension) S/P triple vessel bypass Daughter Mental health disorder No family history of cancer Social History Housing: Apartment Alcohol intake: current Alcohol intake frequency: holidays/special occasions only Patient Tobacco Use Status: Never used Tobacco e-Cigarette/Vaping Use: Never Used Second Hand Smoke Exposure: No service: No Current occupational status: employed Current occupation: [employer] Current occupational exposures/hazards: Yes Cognitive needs: No Hearing needs: No Vision needs: No Review of Systems Const All systems reviewed & are unremarkable except as noted in HPI and below Physical Exam Vital Signs: Last Vital Signs Temp 98.3 F 08/02/24 08:17 Pulse 87 08/02/24 08:17 BP 110/70 08/02/24 08:17 Pulse Ox 97 08/02/24 08:17 Oxygen Delivery Method Room Air 08/02/24 08:17 BMI result Body Mass Index 43.9 Const General: cooperative, healthy appearing, comfortable and no acute distress Orientation/consciousness: patient oriented x3 Limitations: no limitations HEENT Head: Yes normal to inspection Ears: hearing grossly normal bilaterally, external ears normal and TM's normal bilaterally General nose exam: Normal external nose present, Normal nares present and No nasal discharge present Face and sinus: Yes normal facial exam and Yes sinuses nontender Mouth: Normal oral and palatal mucosa present and moist mucous membranes Throat: Yes tonsils normal, Yes uvula midline and Yes posterior oropharynx abnormal (Erythema) Eyes General: appearance normal, both eyes and all related structures Neck Neck: Yes normal visual inspection Resp Effort & Inspection: normal respiratory effort, able to speak in complete sentences, no respiratory distress, not tachypneic, no tripod positioning and no use of accessory muscles Skin General skin exam: no rashes or lesions noted Neuro General: patient oriented x3 Extrem General: Yes normal to inspection and Yes no clubbing, cyanosis or edema Results AMB Rapid Strep AMB Rapid Strep Negative Last Edit by LIONEL Woodson on 08/02/24 08:37 Assessment & Plan Assessment & Plan (1) Acute viral pharyngitis: Code(s): J02.9 - Acute pharyngitis, unspecified Plan: Vital signs are stable, patient is well-appearing, rapid strep in office is negative, we did test for COVID flu and RSV, recommended using coip-iju-[id number] medications to treat her symptoms, and gave her the COVID guidelines. Regardless of whether it is COVID, I did recommend she stay out of work for today and tomorrow and we can adjust the work note based on how she feels later this week as well as Covid results. Plan see above Coding Level of Care Code Est Pt Level 3 (87290) Diagnoses Acute viral pharyngitis J02.9
== END 2024-08-02 08:47 | disposition home or self-care (01) ==
PROVIDERS: PCP Nurse Practitioner Family; Visit Provider Physician Assistant
DX: J02.9 Acute pharyngitis, unspecified (principal); Z13.9 Encounter for screening, unspecified

== ENCOUNTER 2024-08-02 08:16 | Outpatient (REF) | payer OTHER, SELFPAY ==
[2024-08-02 11:22] LABS: Influenza A PCR NEGATIVE (Negative); Influenza B PCR NEGATIVE (Negative); Resp Syncy Virus RNA Qual PCR NEGATIVE (Negative); SARS COV2 PCR INHOUSE POSITIVE (Negative)
== END 2024-08-02 08:17 | disposition home or self-care (01) ==
LOC: HO.LNP 08:16
PROVIDERS: PCP Nurse Practitioner Family; Visit Provider Physician Assistant
DX: J02.9 Acute pharyngitis, unspecified (principal)
CPT/HCPCS: 0241U; 87880

== ENCOUNTER 2024-08-22 16:15 | Outpatient (AMB) | payer OTHER, SELFPAY ==
[2024-08-22 16:16] VITALS: BP 110/72; PULSE 86; O2SAT 98; BMI 43.4
--- NOTE | 2024-08-22 16:16 | MHC.PC.OV ---
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 Pt has seen a exhibition carver as well. She has chronic knee and foot pain related to her weight. Will send wegovy 0.25mg. Denies fever, chills, and dizziness. BMI is 43.4 PFSH Medical History COVID-19 (~05/2020) GERD (gastroesophageal reflux disease) Surgical History History of transurethral resection of bladder tumor (TURBT) Hx of foot surgery History of esophagogastroduodenoscopy (EGD) Previous section (2007) Family History Father Seizure HTN (hypertension) Diabetes No family history of cancer Mother Diabetes HTN (hypertension) S/P triple vessel bypass Daughter Mental health disorder No family history of cancer Social History Housing: Apartment Alcohol intake: current Alcohol intake frequency: holidays/special occasions only Patient Tobacco Use Status: Never used Tobacco e-Cigarette/Vaping Use: Never Used Second Hand Smoke Exposure: No service: No Current occupational status: employed Current occupation: [employer] Current occupational exposures/hazards: Yes Cognitive needs: No Hearing needs: No Vision needs: No Questionnaire PHQ-9 Over the last 2 weeks, how often have you been bothered by any of the following problems? 1. Little interest or pleasure in doing things: not at all 2. Feeling down, depressed, or hopeless: not at all 3. Trouble falling or staying asleep, or sleeping too much: not at all 4. Feeling tired or having little energy: several days 5. Poor appetite or overeating: not at all 6. Feeling bad about yourself - or that you are a failure or have let yourself or your family down: not at all 7. Trouble concentrating on things, such as reading the newspaper or watching television: not at all 8. Moving or speaking so slowly that other people could have noticed. Or the opposite - being so fidgety or restless that you have been moving around a lot more than usual: not at all 9. Thoughts that you would be better off or of hurting yourself in some way: not at all Total score: 1 Depression Screening Interpretation: Negative Depression Screening Done: Yes 14400 - PHQ-9 Billing: Yes Source: Developed by Drs. Artie Wheeler, Serina Torres, Jase Sandoval and colleagues, with an educational dennise from [employer]. Thrive Questionnaire Date Thrive assessed: 08/22/24 I am a: Patient What is your living situation today?: I have a steady place to live Within the past 12 months, did the food you bought not last and you didn't have the money to get more?: Often true Within the past 12 months, did you worry whether your food would run out before you got money to buy more?: Never true Do you have trouble paying for medicines?: No Do you have trouble getting transportation to medical appointments?: No Do you have trouble paying your heating and electricity bill?: Yes Do you have trouble taking care of your child, family member or friend?: No Do you have trouble with day-to-day activities such as bathing, preparing meals, shopping, managing finances, etc.?: No Are you interested in more education?: No Please select the resources that you would like help with: Utilities and None Currently or been in a relationship where the following occur: No concerns reported THRIVE Score: 2 AUDIT C Alcohol Use Questionnaire (AUDIT-C) 1. How often do you have a drink containing alcohol?: Monthly or less 2. How many drinks containing alcohol do you have on a typical day when you are drinking?: 1 or 2 3. How often do you have six or more drinks on one occasion?: Never Total Score: 1 Score Reviewed/Action Taken: Yes PA-7 AMB Questionnaire PA-7 Date PA - 7 assessed: 08/22/24 Feeling nervous, anxious, or on edge: 1 = Several days Not being able to stop or control worryin = Not at all Worrying too much about different things: 0 = Not at all Trouble relaxin = Not at all Being so restless that it is hard to sit still: 0 = Not at all Becoming easily annoyed or irritable: 0 = Not at all Feeling afraid as if something awful might happen: 0 = Not at all Total PA-7 score (0-4 normal; 5-9 mild; 10-14 moderate; 15-21 severe): 1 Source: Developed by Drs. Artie Wheeler, Serina Torres, Jase Sandoval and colleagues, with an educational dennise from [employer]. PA-7 Assessment Billing PA-7 Assessment Tool: PA-7 Assessment 57915 Review of Systems Const Reports as per HPI Physical exam (Primary Care) Vital Signs: Last Vital Signs Pulse 86 08/22/24 16:16 BP 110/72 08/22/24 16:16 Pulse Ox 98 08/22/24 16:16 BMI result Body Mass Index 43.4 Tobacco/Smoking Status: Tobacco use Status Tobacco use date assessed 02/04/24 08/22/24 16:17 Patient Tobacco Use Status Never used Tobacco 08/22/24 16:17 e-Cigarette/Vaping Use Never Used 08/22/24 16:17 PHQ-9: PHQ-9 Score PHQ-9: Total score 1 08/22/24 17:37 Depression Screening Interpretation: Negative Thrive Assessment: Date of Thrive Assessment Date Thrive assessed 08/22/24 08/22/24 16:17 Currently or been in a relationship where the following occur: No concerns reported Const General: cooperative Nutritional Appearance: obese morbidly obese Orientation/consciousness: patient oriented x3 Resp Effort & Inspection: normal respiratory effort Auscultation: clear to auscultation bilaterally Cardio Rate: regular rate Rhythm: regular rhythm Heart sounds: S1 normal heart sound present, S2 normal heart sound present and Murmur heart sound present systolic Neuro General: patient oriented x3 Psych Appearance: grossly normal Mental Status: mental status grossly normal Speech and movement: Normal speech and movement present Affect: normal affect Attitude: cooperative Thought process: Normal thought process present Thought content: Normal thought content present Insight: Good insight present (Psych) Judgement: Good judgement present (Psych) Coding Level of Care Code Est Pt Level 3 (34431) Diagnoses Obesity E66.9 Foot pain, bilateral M79.671; M79.672 Additional Codes PA-7 Assessment Billing - PA-7 Assessment Tool: PA-7 Assessment 47474 ([id number]) Assessment & Plan Assessment & Plan (1) Obesity: Code(s): E66.9 - Obesity, unspecified Category: Medical Plan: weight loss highly recommended, starting Wegovy (2) Foot pain, bilateral: Code(s): M79.671 - Pain in right foot; M79.672 - Pain in left foot Category: Medical Plan: weight loss highly recommended, starting wegovy Plan The patient agreed to the use of a medical stenographer for this encounter. Scribed for CLOVIS Bond by Sue Wheeler medical stenographer, on 08/22/2024 at 16:30 EST. Orders: Orders Comprehensive [place]. Panel Fast Today E66.9 - Obesity, unspecified, M79.671 - Pain in right foot, M79.672 - Pain in left foot UA CC w/rflx Micro + Cult Today E66.9 - Obesity, unspecified, M79.671 - Pain in right foot, M79.672 - Pain in left foot Complete Blood Count Auto Diff Today E66.9 - Obesity, unspecified, M79.671 - Pain in right foot, M79.672 - Pain in left foot TSH reflex Free T4 Today E66.9 - Obesity, unspecified, M79.671 - Pain in right foot, M79.672 - Pain in left foot Lipid Panel Today E66.9 - Obesity, unspecified, M79.671 - Pain in right foot, M79.672 - Pain in left foot Medications: New semaglutide (weight loss) (Ananya) administer weeks 1 through 4 of therapy 0.25 mg (0.5 mL) subcut QWEEK 2 mL 0RF
== END 2024-08-22 16:49 | disposition home or self-care (01) ==
PROVIDERS: PCP Nurse Practitioner Family; Visit Provider Nurse Practitioner Family
DX: M79.671 Pain in right foot (principal); E66.813 Obesity, class 3; Z68.41 Body mass index [BMI] 40.0-44.9, adult; M79.672 Pain in left foot

== ENCOUNTER → 2024-08-22 16:15 | Outpatient (BNVA) | payer OTHER, SELFPAY | PROVIDERS: PCP Nurse Practitioner Family; Visit Provider Nurse Practitioner Family | DX: E66.9 Obesity, unspecified (principal); Z68.41 Body mass index [BMI] 40.0-44.9, adult; M79.671 Pain in right foot; M79.672 Pain in left foot | CPT/HCPCS: 96127 ==

== ENCOUNTER 2024-09-08 08:17 | Outpatient (AMB) | payer OTHER, SELFPAY ==
--- NOTE | 2024-09-08 08:19 | MHC.OFFVIS ---
Vital Signs 09/08/24 08:20 Height 5 ft 6 in Weight 264 lb 8.875 oz BMI 42.7 BP 132/78 Blood Pressure Location Lt brachial Position Sitting Pulse 76 Pulse Source Pulse Oximeter Intake Visit Reasons: Obesity-conf Intake Note: New patient present today for Obesity office visit. 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 Patient states weight gain of 20 lb increments over . Patient has always been overweight since 1999. She has tried diets of intermittent fasting . . She has met with a soils analyst here. She has tried weight loss medications OTC, Goes to gym but not lately due to knee arthritis . She is prescribed Wegovy but needs endocrine input There are no symptoms of hypothyroidism. There are no symptoms of Kelsi syndrome. Has 1 children . No difficulty with fertility. No sx of Kelsi's Syndrome . Family hx of Type 2 DM in mother and father. No hx of pancreatis . [facility] Medical History (Updated 09/08/24 @ 08:27 by SUDHA Dominguez) History of torn meniscus of knee COVID-19 (~05/2020) GERD (gastroesophageal reflux disease) Surgical History History of transurethral resection of bladder tumor (TURBT) Hx of foot surgery History of esophagogastroduodenoscopy (EGD) Previous section (2007) Family History Father Seizure HTN (hypertension) Diabetes No family history of cancer Mother Diabetes HTN (hypertension) S/P triple vessel bypass Daughter Mental health disorder No family history of cancer Social History Housing: Apartment Alcohol intake: current Alcohol intake frequency: holidays/special occasions only Patient Tobacco Use Status: Never used Tobacco e-Cigarette/Vaping Use: Never Used Second Hand Smoke Exposure: No service: No Current occupational status: employed Current occupation: [employer] Current occupational exposures/hazards: Yes Cognitive needs: No Hearing needs: No Vision needs: No Physical Exam Const Other: There are no cushingoid features. Thyroid gland is normal size weighs about 15 g. Assessment & Plan Assessment & Plan (1) Obesity: Code(s): E66.9 - Obesity, unspecified Category: Medical Plan: This is a 44-year-old black female with a history of obesity. There is no obvious secondary causes of obesity. She appears to be clinically biochemically euthyroid Plan is to continue to push dietary and exercise attempts. Will attempt to start Zepbound 2.5 mg Q weekly. Went over side effects of G LP 1 including but not limited to nausea, vomiting rare risk of pancreatitis. Will have patient follow up with soils analyst. Medications: New tirzepatide (weight loss) (Zepbound) for 4 weeks 2.5 mg (0.5 mL) subcut QWEEK 2 mL 5RF Discontinued semaglutide (weight loss) (Wegovy) administer weeks 1 through 4 of therapy Discontinued Reason: Doctor's Order 0.25 mg (0.5 mL) subcut QWEEK 2 mL 0RF Coding Level of Care Code New Pt Level 4 (35389) Diagnoses Obesity E66.9
[2024-09-08 08:20] VITALS: BP 132/78; PULSE 76; BMI 42.7
== END 2024-09-08 09:05 | disposition home or self-care (01) ==
PROVIDERS: PCP Nurse Practitioner Family; Visit Provider Internal Medicine Endocrinology, Diabetes & Metabolism
DX: E66.9 Obesity, unspecified (principal)
CPT/HCPCS: 99204

== ENCOUNTER → 2024-09-08 08:17 | Outpatient (BNVA) | payer OTHER, SELFPAY | PROVIDERS: PCP Nurse Practitioner Family; Visit Provider Internal Medicine Endocrinology, Diabetes & Metabolism ==

== ENCOUNTER 2024-11-28 09:12 | Outpatient (REF) | payer OTHER, SELFPAY ==
--- NOTE | ~2024-11-28 | XR_ITS ---
EXAMINATION: XR CHEST CLINICAL INFORMATION: R05.9 - Cough, unspecified COMPARISON: None available. TECHNIQUE: 2 views of the chest were obtained. FINDINGS: No significant abnormality is noted involving the heart, lungs, mediastinum, bony thorax or soft tissues. XR/XR chest 2V IMPRESSION: Unremarkable chest examination. Electronically signed by: Gamaliel Samson MD 11/28/2024 11:46 AM [facility]
== END 2024-11-28 09:13 | disposition home or self-care (01) ==
LOC: HO.HMGCX 09:12
PROVIDERS: PCP Nurse Practitioner Family; Visit Provider Physician Assistant
DX: R05.9 Cough, unspecified (principal); R07.89 Other chest pain
CPT/HCPCS: 71046; 93005

== ENCOUNTER 2024-11-28 09:12 | Outpatient (AMB) | payer OTHER, SELFPAY ==
--- OUTSIDE RECORDS SUMMARY | 2024-11-28 09:53 | XMS_ITS ---
[facility] Address [address] [place] [address] Care Team Providers Care Electronic Equipment Repairer Name Role Phone Herman Moeller Primary Care Provider Unav ailable Leonard Phillips Unavailable [phone] REASON FOR VISIT MRI Results Encounters Encounter Location Date Provider Diagnosis [facility] [address] [place] [address] 10/20/2024 Leonard Phillips Plan Of Treatment No Information Progress Notes * JOSEPHSohaceDOB:1980 (44 yo F)Acc No.[id number]:10/20/2024 Patient:?Silvana RUIZ :1980???Age:44 Y???Sex:Female Address:[address] [place] [address] [place] [address] * true * Date:? Generated for Printi kiley/Jerry/eTransmitting on:?11/28/2024 09:52 AM EST
--- OUTSIDE RECORDS SUMMARY | 2024-11-28 09:53 | XMS_ITS | Patient Health Record ---
Author Organization [facility] Address [address] [facility] [place] [address] Care Team Providers Care Airplane Cabin Attendant Name Role Phone Herman Moeller Primary Care Provider Unav ailable Leonard Phillips Unavailable [phone] DieterTaylor archuleta Unavailable [phone] Allergies Allergen (clinical drug ingredient) Drug/Non Drug Allergy documented on EMR Reaction Allergy Type Onset Date Status Seasonal IC Unknown Drug Allergy Activ e Reason For Referral No Information Medications Medication SIG (Take, Route, Frequency, Duration) Notes Start Date End Date Status Work Note . . . Patient to retur n to full duty on 12/09/23 without restrictions Active Work Note . . . Patient had foot surgery on 10/28/23 and will be off of work for 6 weeks for recovery 11/12/2023 Active Physical Therapy . . Left achilles tendonitis and plantar fasciitis 2-3x/week 08/11/2023 Not-Taking Walking Boot/Pneumatic As directed Wear Daily for Until further notice 08/11/2023 Not-Taking Omeprazole 20 MG 1 capsule 30 minutes before morning meal Orally Once a day Not-Taking Sertraline HCl 50 MG 1 tablet Orally Once a day Not-Taking Feldene 20 MG 1 capsule with food Orally Once a day for 30 day(s) 08/11/2023 Not-Taking Depo-Provera every 3 months Ac tive Social History Tobacco Use: Social History Observation Description Date Details (start date - stop date) Never Smoker NA - NA Tobacco Use/Smoking Question Answer Notes Are you a: nonsmoker Additional Findings: Tobacco Non-User Current no n-smoker Alcohol Screen Question Answer Notes Did you have a drink contain ing alcohol in the past year? Yes How often did you have a dri nk containing alcohol in the past year? 2 to 4 times a month (2 points) Points 2 Interpretation Negative Tobacco use other than smoking: Question Answer Notes Are you an other tobacco user? 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) Active confirmed Vital Signs Blood pressure diastolic 75 mm Hg 01/13/2024 Height 5ft 6in in 08/26/2024 Blood pressure systolic 123 mm Hg 01/13/2024 Weight 264 lbs 08/26/2024 BMI 42.61 kg/m2 08/26/2024 Encounters Encounter Location Date Provider Diagnosis [address] [address] 12/01/2023 Taylor Perica Plantar fascial fibromatosis M72.2 and Achilles tendinitis of left lower extremity M76.[address] [address] 12/29/2023 Taylor Perica Plantar fascial fibromatosis M72.2 ; Achilles tendinitis of left lower extremity M76.62 ; Right foot pain M79.671 and Plantar wart B07.[address] [address] 01/13/2024 Taylor Perica Pain in left foot M79.672 ; Neuropathy G62.9 ; Neuritis of left foot G57.92 ; Neuritis of right foot G57.91 and Pain in right foot M79.[address] [address] 05/30/2024 Taylor Perica Muscle cramp, nocturnal R25.2 ; Plantar fascial fibromatosis M72.2 and Achilles tendinitis of left lower extremity M76.62 [facility] [address] [address] 08/26/2024 Taylor Perica Muscle cramp, nocturnal R25.2 ; Plantar fascial fibromatosis M72.2 ; Achilles tendinitis of left lower extremity M76.62 ; Neuritis of left foot G57.92 ; Metatarsalgia, left foot M77.42 ; Pain in left foot M79.672 ; Bursitis of left foot M77.52 ; Calcaneal spur, left foot M77.32 and Primary osteoarthritis of left foot M19.072 [facility] [address] [address] 12/01/2023 Leonard Phillips [facility] [address] [address] 12/29/2023 Leonard Alan [facility] [address] [address] 01/13/2024 Taylor Perica [facility] [address] [address] 01/13/2024 Leonard Alan [facility] [address] [address] 05/30/2024 Leonardman RojoAlan [facility] [address] [address] 08/19/2024 Leonard Alan [facility] [address] [address] 08/26/2024 Taylor Perica [facility] [address] [address] 08/31/2024 Leonard Alan [facility] [address] [address] 10/20/2024 Leonard Phillips Assessments Encounter Date Diagnosis (ICD Code) Assessment Notes Treatment Notes Treatment Clinical Notes Section Notes 12/01/2023 Plantar fascial fibromatosis (ICD-10 - M72.2) 12/01/2023 Achilles tendinitis of left lower extremity (ICD-10 - M76.62) 12/29/2023 Plantar fascial fibromatosis (ICD-10 - M72.2) 12/29/2023 Achilles tendinitis of left lower extremity (ICD-10 - M76.62) 01/13/2024 Pain in left foot (ICD-10 - M79.672) 01/13/2024 Neuropathy (ICD-10 - G62.9) 05/30/2024 Plantar fascial fibromatosis (ICD-10 - M72.2) 05/30/2024 Muscle cramp, nocturnal (ICD-10 - R25.2) 08/26/2024 Plantar fascial fibromatosis (ICD-10 - M72.2) 08/26/2024 Muscle cramp, nocturnal (ICD-10 - R25.2) 08/26/2024 Achilles tendinitis of left lower extremity (ICD-10 - M76.62) 05/30/2024 Achilles tendinitis of left lower extremity (ICD-10 - M76.62) 12/29/2023 Right foot pain (ICD-10 - M79.671) 01/13/2024 Neuritis of left foot (ICD-10 - G57.92) 12/29/2023 Plantar wart (ICD-10 - B07.0) 01/13/2024 Neuritis of right foot (ICD-10 - G57.91) 08/26/2024 Neuritis of left foot (ICD-10 - G57.92) 08/26/2024 Metatarsalgia, left foot (ICD-10 - M77.42) 01/13/2024 Pain in right foot (ICD-10 - M79.671) 08/26/2024 Pain in left foot (ICD-10 - M79.672) 08/26/2024 Bursitis of left foot (ICD-10 - M77.52) 08/26/2024 Calcaneal spur, left foot (ICD-10 - M77.32) 08/26/2024 Primary osteoarthritis of left foot (ICD-10 - M19.072) Plan Of Treatment Pending Test Test Name Order Date MRI : Foot, left 08/26/2024 X ray : Ankle, left 3V 08/11/2023 X ray : Foot, left 3V 05/30/2024 X ray : Foot, left 3V 08/26/2024 X ray : Foot, left 3V 02/26/2023 X ray : Foot, right 3V 02/26/2023 [id number] Destruction, 1-14 02/26/2023 [id number] TENDON SHEATH/LIGAMENT 0 04/30/2023 Insurance Providers Payer Name Payer Address Payer Phone Subscriber Number Group Number Insured Name Patient Relationship to Insured Coverage Start Date Coverage End Date [employer] [address] [place] [address] [phone] [id number] Silvana Ruiz Self - patient is the insured Medical (General) History Medical History History ICD Code Anxiety Arthritis Back pain Chicken pox Reflux ( GERD) Surgical History Surgery Date(Month/Year) 09/12/08 [place] Plantar Fasciotomy Left ft 3 knee surgery left 06/20/2024
--- OUTSIDE RECORDS SUMMARY | 2024-11-28 09:53 | XMS_ITS ---
Author Organization [facility] Address [address] [place] [address] Care Team Providers Care Sander Hand Name Role Phone Herman Moeller Primary Care Provider Unav ailable Leonard Phillips Unavailable [phone] Taylor Perez Unavailable [phone] REASON FOR VISIT MRI left foot 10/10/24 Encounters Encounter Location Date Provider Diagnosis [facility] [address] [place] [address] 08/26/2024 Taylor Perez Plan Of Treatment No Information Progress Notes * Soha RUIZceDOB:1980 (44 yo F)Acc No.[id number]:08/26/2024 Patient:?Silvana RUIZ :1980???Age:44 Y???Sex:Female Address:[address] [place] [address] [place] [address] * true * Date:? Generated for Printi ng/Edsong/eTransmitting on:?11/28/2024 09:53 AM EST
--- OUTSIDE RECORDS SUMMARY | 2024-11-28 09:53 | XMS_ITS ---
Author Organization [facility] Address [address] [place] [address] Care Team Providers Care Complaint Inspector Name Role Phone Herman Moeller Primary Care Provider Unav ailable Leonard Phillips Unavailable [phone] REASON FOR VISIT PA Encounters Encounter Location Date Provider Diagnosis [facility] [address] [place] [address] 08/31/2024 Leonard Phillips Plan Of Treatment No Information Progress Notes * JOSEPH SohaceDOB:1980 (44 yo F)Acc No.[id number]:08/31/2024 Patient:?Silvana Ruiz :1980???Age:44 Y???Sex:Female Address:[address] [place] [address], [place] [address] * true * Date:? Generated for Tessai kiley/Jerry/eTransmitting on:?11/28/2024 09:53 AM EST
--- NOTE | 2024-11-28 10:03 | MHC.OFFWIV ---
Intake Vital Signs 11/28/24 10:04 Height 5 ft 6 in Weight 261 lb BMI 42.1 BP 102/70 Blood Pressure Location Rt brachial Position Sitting Pulse 76 Pulse Source Pulse Oximeter Pulse Oximetry (%) 99 Oxygen Delivery Method Room Air Intake Visit Reasons: EP cough, congestion, mucus tightness due to Intake Note: Pt is here today for a walk in visit. Pt c/o cough congestion. Chest discomfort this morning at 7am. Patient Tobacco Use Status: Never used Tobacco Allergies No Known Allergies Allergy (Verified 11/28/24 10:07) Environmental Allergy (Unknown, Uncoded 11/28/24 10:07) none Do you need a note to return to daycare/school/sports/work: No HPI HPI Comments History of Present Illness Details History of Present Illness - The patient is a 44-year-old female presenting with chest pain and symptoms of a respiratory infection. - Initially, she experienced chest pain on the left side at work, lasting over an hour, which was discomforting but not severe. The pain did not worsen with respiration or movement and briefly radiated to her back. The pain has since improved. - The patient denies associated symptoms such as shortness of breath, dizziness, sweating, or nausea and has no significant cardiac history. - She also presents with cough and congestion symptoms, beginning with a sinus headache on Thursday. By the evening, she experienced increased coughing and sneezing with hoarse voice, though she denies fever and reports no other household members are ill. - The patient has no previous diagnosis of asthma or COPD. Physical Exam General: Cooperative, healthy appearing, comfortable, no acute distress and well developed Orientation: Patient oriented x3 Limitations: No limitations Head: Normal to inspection Ears: Hearing grossly normal bilaterally, a little cerumen noted Nose: Normal external nose present, no sinus pain on palpation Face and sinus: Normal facial exam, no sinus tenderness Eyes: Appearance normal, both eyes and all related structures Neck: Normal visual inspection and Yes full ROM Respiratory: Normal respiratory effort and able to speak in complete sentences. Clear to auscultation bilaterally, no shortness of breath Cardiovascular: Regular rate and rhythm. Normal S1 and S2 Skin: No rashes or lesions noted Neuro: Patient oriented x3 Extremities: Normal to inspection [facility] Medical History (Updated 11/28/24 @ 10:58 by eLola Gutierrez PA-C) Left Achilles tendinitis Plantar fasciitis, left Arthritis History of torn meniscus of knee COVID-19 (~05/2020) GERD (gastroesophageal reflux disease) Surgical History History of transurethral resection of bladder tumor (TURBT) Hx of foot surgery History of esophagogastroduodenoscopy (EGD) Previous section (2007) Family History Father Seizure HTN (hypertension) Diabetes No family history of cancer Mother Diabetes HTN (hypertension) S/P triple vessel bypass Daughter Mental health disorder No family history of cancer Social History Housing: Apartment Alcohol intake: current Alcohol intake frequency: holidays/special occasions only Patient Tobacco Use Status: Never used Tobacco e-Cigarette/Vaping Use: Never Used Second Hand Smoke Exposure: No service: No Current occupational status: employed Current occupation: [employer] Current occupational exposures/hazards: Yes Cognitive needs: No Hearing needs: No Vision needs: No Review of Systems Const All systems reviewed & are unremarkable except as noted in HPI and below Physical Exam Vital Signs: Last Vital Signs Pulse 76 11/28/24 10:04 BP 102/70 11/28/24 10:04 Pulse Ox 99 11/28/24 10:04 Oxygen Delivery Method Room Air 11/28/24 10:04 BMI result Body Mass Index 42.1 Office Procedures EKG 68396-[id number], Complete Assessment & Plan Assessment & Plan (1) URI, acute: Code(s): J06.9 - Acute upper respiratory infection, unspecified Plan: Given the respiratory symptoms consistent with a viral upper respiratory tract infection, conservative management including symptom monitoring is advised. Flu, Covid and RSV testing sent. Will get CXR, a pna could be contributing her her chest pressure/pain. (2) Left chest pressure: Code(s): R07.89 - Other chest pain Plan: An electrocardiogram EKG will be conducted to determine any cardiac conduction abnormalities, although it lacks the capability to identify coronary blockages. This test will help in assessing potential arrhythmias. The patient was educated on the purpose of the EKG and its limitations. She was informed of the need to seek immediate care if symptoms escalate or new concerning signs develop. Reviewed signs and symptoms of a cardiac issue with the patient. EKG is normal sinus rhythm 74 beats per minute, no acute ST or T-wave changes. Read on the machine says can not rule out anterior infarct but there are no acute changes on the EKG to support this. Patient was informed and verbally consented to the use of an ambient scribe for clinic note documentation during this visit. Orders: Orders XR chest 2V Today R05.9 - Cough, unspecified Coding Level of Care Code Est Pt Level 5 (06833) Diagnoses URI, acute J06.9 Left chest pressure R07.89 CPT Codes EKG - CPT: 90274-Ewnoimijemdaiessb, Complete ([id number])
[2024-11-28 10:04] VITALS: BP 102/70; PULSE 76; O2SAT 99; BMI 42.1
== END 2024-11-28 11:22 | disposition home or self-care (01) ==
PROVIDERS: PCP Nurse Practitioner Family; Visit Provider Physician Assistant
DX: J06.9 Acute upper respiratory infection, unspecified (principal); R07.89 Other chest pain

== ENCOUNTER → 2024-11-28 11:18 | Outpatient (BNV) | payer OTHER, SELFPAY | PROVIDERS: PCP Nurse Practitioner Family; Visit Provider Radiology Diagnostic Radiology | DX: R05.9 Cough, unspecified (principal) | CPT/HCPCS: 71046 ==

== ENCOUNTER 2024-11-28 13:19 | Outpatient (REF) | payer OTHER, SELFPAY ==
[2024-11-28 16:16] LABS: Influenza A PCR NEGATIVE (Negative); Influenza B PCR NEGATIVE (Negative); Resp Syncy Virus RNA Qual PCR NEGATIVE (Negative); SARS COV2 PCR INHOUSE NEGATIVE (Negative)
== END 2024-11-28 13:20 | disposition home or self-care (01) ==
LOC: HO.LNP 13:19
PROVIDERS: Visit Provider Nurse Practitioner Family
DX: R09.89 Other specified symptoms and signs involving the circulatory and respiratory systems (principal)
CPT/HCPCS: 0241U

== ENCOUNTER 2024-12-15 08:10 | Outpatient (AMB) | payer OTHER, SELFPAY ==
--- NOTE | 2024-12-15 08:15 | MHC.OFFVIS ---
Vital Signs 12/15/24 08:16 Height 5 ft 6 in Weight 252 lb 10.396 oz BMI 40.8 BP 106/84 Blood Pressure Location Rt brachial Position Sitting Pulse 82 Pulse Source Pulse Oximeter Intake Visit Reasons: f/u obesity Intake Note: Patient present today for Obesity follow up. Conference Coordinator Required: No Accompanied by: Self / Same As Patient Allergies No Known Allergies Allergy (Verified 12/15/24 08:17) Environmental Allergy (Unknown, Uncoded 12/15/24 08:17) none Medication List - Last Reconciled 12/15/24 by Artie Berry MD medroxyprogesterone 150 mg IM [id number] semaglutide (weight loss) (Wegovy) 0.25 mg (0.5 mL) subcut QWEEK HPI Comments Details: This is a 44-year-old black female sent to endocrinology for evaluation of obesity. Patient states weight gain of 20 lb increments over . Patient has always been overweight since 1999. She has tried diets of intermittent fasting . . She has met with a deployment engineer here. She has tried weight loss medications OTC, Goes to gym but not lately due to knee arthritis . She is prescribed Wegovy but needs endocrine input There are no symptoms of hypothyroidism. There are no symptoms of Rowland syndrome. Has 1 children . No difficulty with fertility. No sx of Rowland's Syndrome . Family hx of Type 2 DM in mother and father. No hx of pancreatis . Currently on Wegovy 0.25 mg Q weekly. Some constipation but no nausea . On for 3 wks . Lost 6-8 lbs in 3 ks [facility] Medical History (Updated 11/28/24 @ 10:58 by Leola Gutierrez PA-C) Left Achilles tendinitis Plantar fasciitis, left Arthritis History of torn meniscus of knee COVID-19 (~05/2020) GERD (gastroesophageal reflux disease) Surgical History History of transurethral resection of bladder tumor (TURBT) Hx of foot surgery History of esophagogastroduodenoscopy (EGD) Previous section (2007) Family History Father Seizure HTN (hypertension) Diabetes No family history of cancer Mother Diabetes HTN (hypertension) S/P triple vessel bypass Daughter Mental health disorder No family history of cancer Social History Housing: Apartment Alcohol intake: current Alcohol intake frequency: holidays/special occasions only Patient Tobacco Use Status: Never used Tobacco e-Cigarette/Vaping Use: Never Used Second Hand Smoke Exposure: No service: No Current occupational status: employed Current occupation: [employer] Current occupational exposures/hazards: Yes Cognitive needs: No Hearing needs: No Vision needs: No Physical Exam Vital Signs: Last Vital Signs Pulse 82 12/15/24 08:16 BP 106/84 12/15/24 08:16 BMI result Body Mass Index 40.8 Assessment & Plan Assessment & Plan (1) Obesity: Code(s): E66.9 - Obesity, unspecified Category: Medical Plan: This is a 44-year-old black female with a history of obesity. There is no obvious secondary causes of obesity. Currently on Wegovy 0.25 mg Q weekly Plan is to continue Wegovy. Will increase the Wegovy to 0.5 mg Q weekly another week as tolerated Will have patient follow up with deployment engineer. Medications: New semaglutide (weight loss) (Wegovy) administer weeks 5 through 8 of therapy 0.5 mg (0.5 mL) subcut QWEEK 2 mL 2RF Discontinued semaglutide (weight loss) (Wegovy) administer weeks 1 through 4 of therapy Discontinued Reason: Doctor's Order 0.25 mg (0.5 mL) subcut QWEEK 2 mL 4RF Coding Level of Care Code Est Pt Level 3 (96142) Diagnoses Obesity E66.9
[2024-12-15 08:16] VITALS: BP 106/84; PULSE 82; BMI 40.8
--- OUTSIDE RECORDS SUMMARY | 2024-12-15 11:01 | XMS_ITS | Patient Health Record ---
Author Organization [facility] Address [address] [facility] [place] [address] Care Team Providers Care Ticket Scheduler Name Role Phone Herman Moeller Primary Care Provider Unav ailable Leonard Phillips Unavailable [phone] DieterTaylor archuleta Unavailable [phone] Allergies Allergen (clinical drug ingredient) Drug/Non Drug [...] Status Risk Notes Problem Plantar fascial fibromatosis (91124987) Plantar fascial fibromatosis (M72.2) Active confirmed Problem Plantar wart (08629344) Plantar wart (B07.0) Active confirmed Problem 120437311 Neuropathy (G62.9) Active confirmed Problem [id number] Neuritis of righ t foot (G57.91) Active confirmed Problem Mononeuropathy of lower limb (052043462) Neuritis of left foot (G57.92) Active confirmed Problem [id number] 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) Active confirmed Vital Signs Blood pressure diastolic 75 mm Hg 01/13/2024 Height 5ft 6in in 08/26/2024 Blood pressure systolic 123 mm Hg 01/13/2024 Weight 264 lbs 08/26/2024 BMI 42.61 kg/m2 08/26/2024 Encounters Encounter Location Date Provider Diagnosis [address] [address] 12/29/2023 Taylor Perica Plantar fascial fibromatosis M72.2 ; Achilles tendinitis of left lower extremity M76.62 ; Right foot pain M79.671 and Plantar wart B07.[address] [address] 01/13/2024 Taylor Perica Pain in left foot M79.672 ; Neuropathy G62.9 ; Neuritis of left foot G57.92 ; Neuritis of right foot G57.91 and Pain in right foot M79.[address] [address] 05/30/2024 Taylor Perica Muscle cramp, nocturnal R25.2 ; Plantar fascial fibromatosis M72.2 and Achilles tendinitis of left lower extremity M76.[address] [address] 08/26/2024 Taylor Perez Muscle cramp, nocturnal R25.2 ; Plantar fascial fibromatosis M72.2 ; Achilles tendinitis of left lower extremity M76.62 ; Neuritis of left foot G57.92 ; Metatarsalgia, left foot M77.42 ; Pain in left foot M79.672 ; Bursitis of left foot M77.52 ; Calcaneal spur, left foot M77.32 and Primary osteoarthritis of left foot M19.072 [facility] [address] [address] 12/29/2023 Leonard Phillips [facility] [address] [address] 01/13/2024 Taylor Perez [facility] [address] [address] 01/13/2024 Leonardman RojoAlan [facility] [address] [address] 05/30/2024 Leonard Alan [facility] [address] [address] 08/19/2024 Leonard Alan [facility] [address] [address] 08/26/2024 Taylor Perez [facility] [address] [address] 08/31/2024 Leonardman RojoAlan [facility] [address] [address] 10/20/2024 Leonard Alan [facility] [address] [address] 11/29/2024 Leonard Phillips Assessments Encounter Date Diagnosis (ICD Code) Assessment Notes Treatment Notes Treatment Clinical Notes Section Notes 12/29/2023 Plantar fascial fibromatosis (ICD-10 - M72.2) [...] X ray : Foot, right 3V 02/26/2023 [id number]-[id number] Destruction, 1-14 02/26/2023 33600,H3150-BVL TENDON SHEATH/LIGAMENT 0 04/30/2023 Insurance Providers Payer Name Payer Address Payer Phone Subscriber Number Group Number Insured Name Patient Relationship to Insured Coverage Start Date Coverage End Date [facility] [address] [place] [address] [id number] Silvana Ruiz Self - patient is the insured Medical (General) History Medical History History ICD Code Anxiety Arthritis Back pain Chicken pox Reflux ( GERD) Surgical History Surgery Date(Month/Year) 09/12/08 [place] Plantar Fasciotomy Left ft 3 knee surgery left 06/20/2024
--- OUTSIDE RECORDS SUMMARY | 2024-12-15 11:01 | XMS_ITS | Clinical Summary ---
Author Organization [facility] Address [address] [place] [address] Phone Care Team Providers Care Feller Buncher Operator Name Role Phone Unavailable Primary Care Provider Unavailabl e Immunizations Name Administration Dates Next Due DTP 05/12/1986,04/15/1983,1981 ,1981,1981 Hib (HbOC) 07/05/1985 MMR 05/12/1986,04/15/1983 OPV 05/12/1986,04/15/1983,1981 ,1981,1981 Social History Tobacco Use Types Packs/Day Years Used Date Smoking Tobacco: Never Assessed Comments Unknown Sex and Gender Information Value Date Recorded Sex Assigned at Not on file Legal Sex Female 4:44 PM EDT Gender Identity Not on file Sexual Orientation Not on file Plan of Treatment Health Maintenance Due Date Last Done Comments DTaP,Tdap,and Td Vaccines (6 - Tdap) 1992 05/12/1986, 04/15/1983, 1981, Additional history exists Varicella Vaccines (1 of 2 - 13+ 2-dose series) 1994 Hepatitis B Vaccines (1 of 3 - 19+ 3-dose series) 2000 Influenza Vaccines (#1) 2024 COVID-19 Vaccine (2023- season) 2024 HIB Vaccines Completed 07/05/1985 IPV Vaccines Completed 05/12/1986, 0511/1982, 1981, Additional history exists MMR Vaccines Completed 05/12/1986, 04/15/1983 HPV Vaccines Aged Out No longer eligi ble based on patient's age to complete this topic Hepatitis A Vaccines Aged Out No long er eligible based on patient's age to complete this topic Men B Vaccine Aged Out No longer elig ible based on patient's age to complete this topic Meningococcal Vaccine Aged Out No bartolome manny eligible based on patient's age to complete this topic Pneumococcal Vaccine Aged Out No long er eligible based on patient's age to complete this topic
--- OUTSIDE RECORDS SUMMARY | 2024-12-15 11:01 | XMS_ITS ---
Author Organization [facility] Address [address] [place] [address] Care Team Providers Care Criminal Psychologist Name Role Phone Herman Moeller Primary Care Provider Unav ailable Leonard Phillips Unavailable [phone] REASON FOR VISIT PA Encounters Encounter Location Date Provider Diagnosis [facility] [address] [place] [address] 08/31/2024 Leonard Phillips Plan Of Treatment No Information Progress Notes * Storm RUIZbernieceDOB:1980 (44 yo F)Acc No.[id number]:08/31/2024 Patient:?Silvana Ruiz :1980???Age:44 Y???Sex:Female Address:[address] [place] [address], [place] [address] * true * Date:? Generated for Tessai kiley/Jerry/eTransmitting on:?12/15/2024 11:00 AM EST
--- OUTSIDE RECORDS SUMMARY | 2024-12-15 11:01 | XMS_ITS ---
Author Organization [facility] Address [address] [place] [address] Care Team Providers Care Assurance Analyst Name Role Phone Herman Moeller Primary Care Provider Unav ailable Leonard Phillips Unavailable [phone] REASON FOR VISIT Pain Management Encounters Encounter Location Date Provider Diagnosis [facility] [address] [place] [address] 11/29/2024 Leonard Phillips Plan Of Treatment No Information Progress Notes * JOSEPH SohaceDOB:1980 (44 yo F)Acc No.[id number]:11/29/2024 Patient:?Silvana RUIZ :1980???Age:44 Y???Sex:Female Address:[address] [place] [address] [place] [address] * true * Date:? Generated for Printi kiley/Jerry/eTransmitting on:?12/15/2024 11:01 AM EST
--- OUTSIDE RECORDS SUMMARY | 2024-12-15 11:01 | XMS_ITS ---
Author Organization [facility] Address [address] [place] [address] Care Team Providers Care [place] Attendant Name Role Phone Herman Moeller Primary Care Provider Unav ailable Leonard Phillips Unavailable [phone] REASON FOR VISIT MRI Results Encounters Encounter Location Date Provider Diagnosis [facility] [address] [place] [address] 10/20/2024 Leonard Phillips Plan Of Treatment No Information Progress Notes * JOSEPHSohaceDOB:1980 (44 yo F)Acc No.[id number]:10/20/2024 Patient:?Silvana RUIZ :1980???Age:44 Y???Sex:Female Address:[address] [place] [address] [place] [address] * true * Date:? Generated for Tessai kiley/Jerry/eTransmitting on:?12/15/2024 11:00 AM EST
== END 2024-12-15 08:41 | disposition home or self-care (01) ==
PROVIDERS: PCP Nurse Practitioner Family; Visit Provider Internal Medicine Endocrinology, Diabetes & Metabolism
DX: E66.9 Obesity, unspecified (principal)
CPT/HCPCS: 99213

== ENCOUNTER 2024-12-30 14:01 | Outpatient (AMB) | payer OTHER, SELFPAY ==
--- NOTE | 2024-12-30 13:13 | MHC.OFFVIS ---
Intake Visit Reasons: 9m follow up Intake Note: Patient is Present for Follow Up Urology Medication: None Antibiotic Allergies: None Blood Thinners: None PVR:0ML Carding Machine Feeder Required: No Accompanied by: Self / Same As Patient Allergies No Known Allergies Allergy (Verified 12/30/24 14:25) Environmental Allergy (Unknown, Uncoded 12/30/24 14:25) none Medication List - Last Reconciled 12/30/24 by Morro Hunt MD medroxyprogesterone 150 mg IM [id number] semaglutide (weight loss) (Wegovy) 0.5 mg (0.5 mL) subcut QWEEK HPI Comments Details: 12/30/24--Silvana is a 44-year-old female who was referred for microscopic hematuria. She has had history of UTIs. work up included imaging renal sono 11/10/23-- WNL, office cystoscopy noted an irregular bladder lesion. She is status post cystoscopy bladder biopsy on 03/01/2024. pathology results-inflammatory, lymphoid aggregate, chronic cystitis. UA 3+blood, leuks neg. Plan repeat urine cytology, CT Urogram. 03/31/2024--Silvana is a 43-year-old female who was referred for microscopic hematuria office cystoscopy noted an irregular bladder lesion. She is status post cystoscopy bladder biopsy on 03/01/2024. The patient had an episode of gross hematuria after the biopsy. She was treated for urinary tract infection. I have reviewed pathology results-inflammatory, lymphoid aggregate, chronic cystitis. She has had history of UTIs. Follow-up in 9 months. 01/22/24--here for office cystoscopy. Urine cytology 12/10/2023--negative for malignant cells. Cystoscopy findings erythematous bladder lesion left posterior wall The patient states that her mother smoked in the home when she was a child. She had a UTI November that was treated by her PCP. Currently she denies irritative voiding symptoms. 12/10/23--Silvana is a 43 y/o who is here for evaluation for microscopic hematuria The patient denies urinary frequency, nocturia, gross hematuria, dysuria. She is sexually active, denies history of kidney stones, denies history of nicotine use. I have reviewed chart, imaging renal sono 11/10/23-- WNL, urine culture 09/24/23-- lactobaccillus. I have discussed workup to include FU for cystoscopy evaluation. ON LICENSE OF [facility] Medical History Left Achilles tendinitis Plantar fasciitis, left Arthritis History of torn meniscus of knee COVID-19 (~05/2020) GERD (gastroesophageal reflux disease) Surgical History History of transurethral resection of bladder tumor (TURBT) Hx of foot surgery History of esophagogastroduodenoscopy (EGD) Previous section (2007) Family History Father Seizure HTN (hypertension) Diabetes No family history of cancer Mother Diabetes HTN (hypertension) S/P triple vessel bypass Daughter Mental health disorder No family history of cancer Social History Housing: Apartment Alcohol intake: current Alcohol intake frequency: holidays/special occasions only Patient Tobacco Use Status: Never used Tobacco e-Cigarette/Vaping Use: Never Used Second Hand Smoke Exposure: No service: No Current occupational status: employed Current occupation: [employer] Current occupational exposures/hazards: Yes Cognitive needs: No Hearing needs: No Vision needs: No Review of Systems Const All systems reviewed & are unremarkable except as noted in HPI and below Reports no additional complaints Eyes Reports no additional complaints ENT Reports no additional complaints Card Reports no additional complaints Resp Reports no additional complaints GI Reports no additional complaints Reports as per HPI Musc Reports no additional complaints Skin/Breast Reports system reviewed and no additional complaints, except as documented Neuro Reports no additional complaints Psych Reports no additional complaints Endo Reports no additional complaints Shahram/Lymph Reports no additional complaints Aller/Immun Reports no additional complaints Office Procedures Post Void Residual Post Residual Void Post Void Residual (PVR): 0 45213-Bpdz Void Residual by ultrasound Results Reviewed Results Reviewed: Collected: 03/01/24 Location: [facility] Received: 03/02/24 Diagnosis Bladder, posterior wall lesion, transurethral resection: Partially denuded benign urothelium with marked chronic cystitis, reactive lymphoid follicles, and focal papillary hyperplasia; no evidence of malignancy; no muscularis propria present. Clinical History Bladder lesion Collected: 12/10/23 Location: [facility] [place] Received: 12/15/23 Diagnosis Urine: Negative for high-grade urothelial carcinoma. COMMENT: Examination of a monolayer preparation slide shows many benign superficial squamous cells with bacteria and degenerated inflammatory cells, and few benign urothelial cells. Date of Service: 11/10/23 EXAMINATION: US RETROPERITONEAL COMPLETE (RENAL) CLINICAL INFORMATION: Other microscopic hematuria. COMPARISON: Ultrasound abdomen complete 08/15/2020 and 01/08/2017. CT abdomen and pelvis without contrast 12/19/2016. TECHNIQUE: Real-time imaging of the kidneys and bladder. FINDINGS: RIGHT KIDNEY: 11.1 x 3.5 x 5.8 cm (SAG x AP x TRV). The kidney is normal in size, contour, and echogenicity. Renal cortical thickness is normal. No calculi or focal parenchymal lesions. No hydronephrosis. LEFT KIDNEY: 9.6 x 4.5 x 4.4 cm (SAG x AP x TRV). The kidney is normal in size, contour, and echogenicity. Renal cortical thickness is normal. No calculi or focal parenchymal lesions. No hydronephrosis. BLADDER: Well distended and normal. Bilateral ureteral jets are demonstrated. Prevoid bladder volume is 145 mL. Postvoid bladder volume is 0.9 mL. US/US retroperitoneal comp IMPRESSION: Normal exam. Assessment & Plan Assessment & Plan (1) Cystitis: Code(s): N30.90 - Cystitis, unspecified without hematuria Category: Medical (2) Hematuria: Code(s): R31.9 - Hematuria, unspecified Category: Medical (3) History of recurrent UTIs: Code(s): Z87.440 - Personal history of urinary (tract) infections Category: Medical Plan Plan repeat urine cytology, CT Urogram. Orders: Orders AMB Urinalysis Automated Today Z13.9 - Encounter for screening, unspecified Urine Cytology Today R31.29 - Other microscopic hematuria CT urogram Today R31.9 - Hematuria, unspecified AMB Post Void Residual by ultrasound Today N39.0 - Urinary tract infection, site not specified Patient Instructions: The patient had an opportunity to ask questions regarding treatment plan. The patient expressed understanding and agreement with the above treatment plan. The patient is aware they should contact our office by phone for worsening of their current condition or the appearance of new symptoms. Compliance is encouraged with any medications and followup testing that is ordered. It is a privilege to be allowed the opportunity to participate in the urologic care of your patient. If you have any questions or concerns regarding treatment for the above conditions please do not hesitate to contact me. The office telephone contact is [phone]. This note is constructed in part using voice recognition software. While every effort has been made to ensure accuracy capacitor repairer errors may have been included. Yours sincerely, Morro Hunt MD Coding Level of Care Code Est Pt Level 4 (81084) Diagnoses Cystitis N30.90 Hematuria R31.9 History of recurrent UTIs Z87.440 CPT Codes Post Residual Void - PVR CPT Code: 16728-Ohkc Void Residual by ultrasound ([id number])
--- OUTSIDE RECORDS SUMMARY | 2024-12-30 14:03 | XMS_ITS | Patient Health Record ---
Author Organization [facility] Address [address] [facility] [place] [address] Care Team Providers Care Layout Operator Name Role Phone Herman Moeller Primary Care Provider Unav ailable Leonard Phillips Unavailable [phone] DieterTaylor archuleta Unavailable [phone] Allergies Allergen (clinical drug ingredient) Drug/Non Drug [...] Status Risk Notes Problem Plantar fascial fibromatosis (56480626) Plantar fascial fibromatosis (M72.2) Active confirmed Problem Plantar wart (67686646) Plantar wart (B07.0) Active confirmed Problem 392603533 Neuropathy (G62.9) Active confirmed Problem 123908417457627 Neuritis of righ t foot (G57.91) Active confirmed Problem Mononeuropathy of lower limb (572833370) Neuritis of left foot (G57.92) Active confirmed Problem 3903812167059042 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) Active confirmed Vital Signs Blood pressure diastolic 75 mm Hg 01/13/2024 Height 5ft 6in in 08/26/2024 Blood pressure systolic 123 mm Hg 01/13/2024 Weight 264 lbs 08/26/2024 BMI 42.61 kg/m2 08/26/2024 Encounters Encounter Location Date Provider Diagnosis [address] [address] 01/13/2024 Taylor Perica Pain in left foot M79.672 ; Neuropathy G62.9 ; Neuritis of left foot G57.92 ; Neuritis of right foot G57.91 and Pain in right foot M79.[facility] [address] 05/30/2024 Taylor Perica Muscle cramp, nocturnal R25.2 ; Plantar fascial fibromatosis M72.2 and Achilles tendinitis of left lower extremity M76.[address] [address] 08/26/2024 Taylor Perica Muscle cramp, nocturnal R25.2 ; Plantar fascial fibromatosis M72.2 ; Achilles tendinitis of left lower extremity M76.62 ; Neuritis of left foot G57.92 ; Metatarsalgia, left foot M77.42 ; Pain in left foot M79.672 ; Bursitis of left foot M77.52 ; Calcaneal spur, left foot M77.32 and Primary osteoarthritis of left foot M19.072 [facility] [address] [address] 12/26/2024 Leonard Alan [facility] [address] [address] 01/13/2024 Taylor Perica [facility] [address] [address] 01/13/2024 Leonard Alan [facility] [address] [address] 05/30/2024 Leonard Alan [facility] [address] [address] [facility] [address] [address] 08/26/2024 Taylor [facility] [address] [address] 08/31/2024 [facility] [address] [address] 10/20/2024 [facility] [address] [address] 11/29/2024 Leonard Alan Assessments Encounter Date Diagnosis (ICD Code) Assessment Notes Treatment Notes Treatment Clinical Notes Section Notes 01/13/2024 Pain in left foot (ICD-10 - M79.672) 01/13/2024 Neuropathy (ICD-10 - G62.9) 05/30/2024 Plantar fascial fibromatosis (ICD-10 - M72.2) 05/30/2024 Muscle cramp, nocturnal (ICD-10 - R25.2) 08/26/2024 Plantar fascial fibromatosis (ICD-10 - M72.2) 08/26/2024 Muscle cramp, nocturnal (ICD-10 - R25.2) 08/26/2024 Achilles tendinitis of left lower extremity (ICD-10 - M76.62) 05/30/2024 Achilles tendinitis of left lower extremity (ICD-10 - M76.62) 01/13/2024 Neuritis of left foot (ICD-10 - G57.92) 01/13/2024 Neuritis of right foot (ICD-10 - [...] X ray : Foot, right 3V 02/26/2023 10632-Pikm Destruction, 1-14 02/26/2023 01190,[id number] TENDON SHEATH/LIGAMENT 0 04/30/2023 Insurance Providers Payer Name Payer Address Payer Phone Subscriber Number Group Number Insured Name Patient Relationship to Insured Coverage Start Date Coverage End Date [facility] [address] [facility] [place] [phone] [id number] Silvana Ruiz Self - patient is the insured Medical (General) History Medical History History ICD Code Anxiety Arthritis Back pain Chicken pox Reflux ( GERD) Surgical History Surgery Date(Month/Year) 09/12/08 [place] Plantar Fasciotomy Left ft 3 knee surgery left 06/20/2024
--- OUTSIDE RECORDS SUMMARY | 2024-12-30 14:03 | XMS_ITS ---
Author Organization [facility] Address [address] [place] [address] Care Team Providers Care Sales Operations Assistant Name Role Phone Herman Moeller Primary Care Provider Unav ailable Leonard Phillips Unavailable [phone] REASON FOR VISIT MRI Results Encounters Encounter Location Date Provider Diagnosis [facility] [address] [place] [address] 10/20/2024 Leonard Phillips Plan Of Treatment No Information Progress Notes * JOSEPHSohaceDOB:1980 (44 yo F)Acc No.[id number]:10/20/2024 Patient:?Silvana RUIZ :1980???Age:44 Y???Sex:Female Address:[address] [place] [address] [place] [address] * true * Date:? Generated for Tessai kiley/Jerry/eTransmitting on:?12/30/2024 02:03 PM EST
--- OUTSIDE RECORDS SUMMARY | 2024-12-30 14:03 | XMS_ITS ---
Author Organization [facility] Address [address] [place] [address] Care Team Providers Care Heavy Equipment Service Manager Name Role Phone Herman Moeller Primary Care Provider Unav ailable Leonard Phillips Unavailable [phone] REASON FOR VISIT FMLA Encounters Encounter Location Date Provider Diagnosis [facility] [address] [place] [address] 12/26/2024 Leonard Phillips Plan Of Treatment No Information Progress Notes * Soha RUIZceDOB:1980 (44 yo F)Acc No.[id number]:12/26/2024 Patient:?RUSSELStormSilvana :1980???Age:44 Y???Sex:Female Address:[address] [place] [address] [place] [address] * * Date:?
--- OUTSIDE RECORDS SUMMARY | 2024-12-30 14:03 | XMS_ITS | Clinical Summary ---
Author Organization [facility] Address [address] [place] [address] Phone Care Team Providers Care Technology Risk Intern Name Role Phone Unavailable Primary Care Provider Unavailabl e Immunizations Immunization Administration Dates Next Due DTP 05/12/1986,04/15/1983,1981 ,1981,1980 [...] Vaccines Completed 07/05/1985 IPV Vaccines Completed 05/12/1986, 03/18, 1981, Additional history exists MMR Vaccines Completed [...]
--- OUTSIDE RECORDS SUMMARY | 2024-12-30 14:04 | XMS_ITS ---
Author Organization [facility] Address [address] [place] [address] Care Team Providers Care Porcelain Finish Sprayer Name Role Phone Herman Moeller Primary Care Provider Unav ailable Leonard Phillips Unavailable [phone] REASON FOR VISIT Pain Management Encounters Encounter Location Date Provider Diagnosis [facility] [address] [place] [address] 11/29/2024 Leonard Phillips Plan Of Treatment No Information Progress Notes * Storm RUIZbernieceDOB:1980 (44 yo F)Acc No.[id number]:11/29/2024 Patient:?Silvana RUIZ :1980???Age:44 Y???Sex:Female Address:[address] [place] [address] [place] [address] * true * Date:? Generated for Tessai kiley/Jerry/eTransmitting on:?12/30/2024 02:03 PM EST
== END 2024-12-30 14:47 | disposition home or self-care (01) ==
PROVIDERS: PCP Nurse Practitioner Family; Visit Provider Urology
DX: N30.90 Cystitis, unspecified without hematuria (principal); R31.9 Hematuria, unspecified; Z87.440 Personal history of urinary (tract) infections
CPT/HCPCS: 99214

== ENCOUNTER 2024-12-30 14:01 | Outpatient (REF) | payer OTHER, SELFPAY ==
--- OUTSIDE RECORDS SUMMARY | 2024-12-30 14:42 | XMS_ITS | Clinical Summary ---
Author Organization [facility] Address [address] [place] [address] Phone Care Team Providers Care Microbiology Soil Scientist Name Role Phone Unavailable Primary Care Provider [...]
[2024-12-30 16:37] LABS: Urine Cytology See Pathology rpt
== END 2024-12-30 14:02 | disposition home or self-care (01) ==
LOC: HO.LAB 14:01
PROVIDERS: PCP Nurse Practitioner Family; Visit Provider Urology
DX: R31.29 Other microscopic hematuria (principal)
CPT/HCPCS: 51798; 88112

== ENCOUNTER 2025-01-12 09:28 | Outpatient (AMB) | payer OTHER, SELFPAY ==
--- OUTSIDE RECORDS SUMMARY | 2025-01-12 10:42 | XMS_ITS ---
Author Organization [facility] Address [address] [place] [address] Care Team Providers Care Bill Hiker Name Role Phone Herman Moeller Primary Care Provider Unav ailable Leonard Phillips Unavailable [phone] REASON FOR VISIT Pain Management Encounters Encounter Location Date Provider Diagnosis [facility] [address] [place] [address] 11/29/2024 Leonard Phillips Plan Of Treatment No Information Progress Notes * JOSEPH SohaceDOB:1980 (44 yo F)Acc No.[id number]:11/29/2024 Patient:?Silvana RUIZ :1980???Age:44 Y???Sex:Female Address:[address] [place] [address] [place] [address] * true * Date:? Generated for Tessai kiley/Jerry/eTransmitting on:?01/12/2025 10:42 AM EST
--- OUTSIDE RECORDS SUMMARY | 2025-01-12 10:42 | XMS_ITS ---
Author Organization [facility] Address [address] [facility] [place] [address] Care Team Providers Care Abalone Diver Name Role Phone Herman Moeller Primary Care Provider Unav ailable Leonard Phillips Unavailable [phone] REASON FOR VISIT MRI Results Encounters Encounter Location Date Provider Diagnosis [facility] [address] [place] [address] 10/20/2024 Leonard Phillips Plan Of Treatment No Information Progress Notes * JOSEPHSohaceDOB:1980 (44 yo F)Acc No.[id number]:10/20/2024 Patient:?Silvana RUIZ :1980???Age:44 Y???Sex:Female Address:[address] [place] [address] [place] [address] * true * Date:? Generated for Tessai kiley/Jerry/eTransmitting on:?01/12/2025 10:42 AM EST
--- OUTSIDE RECORDS SUMMARY | 2025-01-12 10:42 | XMS_ITS ---
Author Organization [facility] Address [address] [place] [address] Care Team Providers Care Hybrid Technologist Name Role Phone Herman Moeller Primary Care Provider Unav ailable Leonard Phillips Unavailable [phone] REASON FOR VISIT FMLA Encounters Encounter Location Date Provider Diagnosis [facility] [address] [place] [address] 12/26/2024 Leonard Phillips Plan Of Treatment No Information Progress Notes * JOSEPH SohaceDOB:1980 (44 yo F)Acc No.[id number]:12/26/2024 Patient:?Silvana RUIZ :1980???Age:44 Y???Sex:Female Address:[address] [place] [address] [place] [address] * true * Date:? Generated for Printi kiley/Jerry/eTransmitting on:?01/12/2025 10:42 AM EST
--- OUTSIDE RECORDS SUMMARY | 2025-01-12 10:42 | XMS_ITS | Clinical Summary ---
Author Organization [facility] Address [address] [place] [address] Phone Care Team Providers Care Programmer Engineering And Scientific Name Role Phone Unavailable Primary Care Provider [...]
--- OUTSIDE RECORDS SUMMARY | 2025-01-12 10:42 | XMS_ITS | Patient Health Record ---
Author Organization [facility] Address [address] [facility] [place] [address] Care Team Providers Care Dat Instructor Name Role Phone Herman Moeller Primary Care Provider Unav ailable Leonard Phillips Unavailable [phone] DieterTaylor archuleta Unavailable [phone] Allergies Allergen (clinical drug ingredient) Drug/Non Drug [...] Status Risk Notes Problem Plantar fascial fibromatosis (05874443) Plantar fascial fibromatosis (M72.2) Active confirmed Problem Plantar wart (71354272) Plantar wart (B07.0) Active confirmed Problem 687660783 Neuropathy (G62.9) Active confirmed Problem 098669224404012 Neuritis of righ t foot (G57.91) Active confirmed Problem Mononeuropathy of lower limb (716090107) Neuritis of left foot (G57.92) Active confirmed Problem 6425108569670995 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) Active confirmed Vital Signs Blood pressure diastolic 75 mm Hg 01/13/2024 Height 5ft 6in in 08/26/2024 Blood pressure systolic 123 mm Hg 01/13/2024 Weight 264 lbs 08/26/2024 BMI 42.61 kg/m2 08/26/2024 Encounters Encounter Location Date Provider Diagnosis [address] [address] 01/13/2024 Taylor Perica Pain in left foot M79.672 ; Neuropathy G62.9 ; Neuritis of left foot G57.92 ; Neuritis of right foot G57.91 and Pain in right foot M79.[address] [facility] [address] 05/30/2024 Taylor Perica Muscle cramp, nocturnal R25.2 ; Plantar fascial fibromatosis M72.2 and Achilles tendinitis of left lower extremity M76.[address] [address] 08/26/2024 Taylor Perica Muscle cramp, nocturnal R25.2 ; Plantar fascial fibromatosis M72.2 ; Achilles tendinitis of left lower extremity M76.62 ; Neuritis of left foot G57.92 ; Metatarsalgia, left foot M77.42 ; Pain in left foot M79.672 ; Bursitis of left foot M77.52 ; Calcaneal spur, left foot M77.32 and Primary osteoarthritis of left foot M19.072 [facility] [address] [address] 01/13/2024 [facility] [address] [address] 01/13/2024 Leonard Alan [facility] [address] [address] 05/30/2024 Leonard Alan [facility] [address] [address] 08/19/2024 Leonard Alan [facility] [address] [address] 08/26/2024 [facility] [address] 08/31/2024 Leonard Alan [facility] [address] [address] [facility] [address] [address] 11/29/2024 [facility] [address] [address] 12/26/2024 Leonard Phillips Assessments Encounter Date Diagnosis (ICD [...] X ray : Foot, right 3V 02/26/2023 65531-Tcum Destruction, 1-14 02/26/2023 66817,[id number] TENDON SHEATH/LIGAMENT 0 04/30/2023 Insurance Providers Payer Name Payer Address Payer Phone Subscriber Number Group Number Insured Name Patient Relationship to Insured Coverage Start Date Coverage End Date [facility] [address] [facility] [place] [id number] Silvana Ruiz Self - patient is the insured Medical (General) History Medical History History ICD Code Anxiety Arthritis Back pain Chicken pox Reflux ( GERD) Surgical History Surgery Date(Month/Year) 09/12/08 [facility] Plantar Fasciotomy Left ft 3 knee surgery left 06/20/2024
--- NOTE | 2025-01-12 11:01 | AM.OFFWIN_ITS ---
Intake Vital Signs 01/12/25 11:12 Height 5 ft 6 in Weight 246 lb BMI 39.7 BP 108/70 Blood Pressure Location Rt brachial Position Sitting Pulse 82 Pulse Source Pulse Oximeter Temp 98.6 F Temp Source Oral Pulse Oximetry (%) 98 Oxygen Delivery Method Room Air Intake Visit Reasons: EP-coughing mucus, chest phlegm Intake Note: Patient here because she has been coughing up thick phlegm and has been going on for about 1 month now. Patient Tobacco Use Status: Never used Tobacco Allergies No Known Allergies Allergy (Verified 01/12/25 11:14) Environmental Allergy (Unknown, Uncoded 01/12/25 11:14) none Do you need a note to return to daycare/school/sports/work: No HPI HPI Comments History of Present Illness Details 44 y/o female patient who presents to [facility] walk in clinic with c/o persistent productive cough for 1 month now. Reports feeling chest congestion/tightness and produces yellow sputum with cough. [facility] Medical History (Updated 01/12/25 @ 11:37 by Trinity Connor NP) Chest congestion Cough Left Achilles tendinitis Plantar fasciitis, left Arthritis History of torn meniscus of knee COVID-19 (~05/2020) GERD (gastroesophageal reflux disease) Surgical History History of transurethral resection of bladder tumor (TURBT) Hx of foot surgery History of esophagogastroduodenoscopy (EGD) Previous section (2007) Family History Father Seizure HTN (hypertension) Diabetes No family history of cancer Mother Diabetes HTN (hypertension) S/P triple vessel bypass Daughter Mental health disorder No family history of cancer Social History Housing: Apartment Alcohol intake: current Alcohol intake frequency: holidays/special occasions only Patient Tobacco Use Status: Never used Tobacco e-Cigarette/Vaping Use: Never Used Second Hand Smoke Exposure: No service: No Current occupational status: employed Current occupation: [employer] Current occupational exposures/hazards: Yes Cognitive needs: No Hearing needs: No Vision needs: No Review of Systems Const All systems reviewed & are unremarkable except as noted in HPI and below Physical Exam Vital Signs: Last Vital Signs Temp 98.6 F 01/12/25 11:12 Pulse 82 01/12/25 11:12 BP 108/70 01/12/25 11:12 Pulse Ox 98 01/12/25 11:12 Oxygen Delivery Method Room Air 01/12/25 11:12 BMI result Body Mass Index 39.7 Const General: cooperative and no acute distress Nutritional Appearance: obese morbidly obese Orientation/consciousness: patient oriented x3 HEENT Head: Yes normocephalic Ears: external ears normal and TM abnormal with fluid behind the TM bilateral General nose exam: Normal external nose present and No nasal discharge present Face and sinus: Yes sinuses nontender Mouth: moist mucous membranes Throat: Yes uvula midline Resp Effort & Inspection: normal respiratory effort and able to speak in complete sentences Auscultation: clear to auscultation bilaterally, no crackles, no rales, no rhonchi and no wheezes Cardio Heart sounds: S1 normal heart sound present and S2 normal heart sound present Neuro General: patient oriented x3 Assessment & Plan Assessment & Plan (1) Cough: Code(s): R05.9 - Cough, unspecified Qualifiers: Cough type: subacute Qualified Code(s): R05.2 - Subacute cough Plan: Ordered Zpack (2) Chest congestion: Code(s): R09.89 - Other specified symptoms and signs involving the circulatory and respiratory systems Plan: Ordered Famotidine (? GERD symptoms) and Post Nasal congestion. Ordered Mucinex. Medications: New famotidine 40 mg PO BEDTIME 20 tabs 0RF R05.2 - Subacute cough, R09.89 - Other specified symptoms and signs involving the circulatory and respiratory systems dextromethorphan-guaifenesin 5-100 mg/5 mL (Mucinex Fast-Max DM Max) 10 mL PO Q4-8H PRN 1,000 mL 0RF cough R05.2 - Subacute cough azithromycin 500 mg PO DAILY 3 days 3 tabs 0RF R05.2 - Subacute cough Coding Level of Care Code Est Pt Level 4 (12039) Diagnoses Subacute cough R05.2 Cough type: subacute Chest congestion R09.89 Time Spent (min) 20
[2025-01-12 11:12] VITALS: BP 108/70; PULSE 82; TEMP 37; O2SAT 98; BMI 39.7
== END 2025-01-12 11:38 | disposition home or self-care (01) ==
PROVIDERS: PCP Nurse Practitioner Family; Visit Provider Nurse Practitioner Family
DX: R05.2 Subacute cough (principal); R09.89 Other specified symptoms and signs involving the circulatory and respiratory systems

== ENCOUNTER 2025-02-06 09:50 | Outpatient (REF) | payer OTHER, SELFPAY ==
--- NOTE | ~2025-02-06 | XR_ITS ---
EXAMINATION: XR ABDOMEN KUB CLINICAL INDICATION: K59.00 - Constipation, unspecified COMPARISON: None available. TECHNIQUE: AP view of the abdomen. FINDINGS: No abnormally dilated loops of large or small bowel identified. Moderate fecal residue seen throughout the colon and rectum. No organomegaly or abnormal soft tissue calcifications. No indirect evidence of free air. Lung bases clear. No osseous abnormalities. XR/XR KUB IMPRESSION: 1. Moderate constipation. No abnormally dilated loops of bowel. Electronically signed by: Ezra Mcclendon MD 02/06/2025 11:50 AM EDT
== END 2025-02-06 09:51 | disposition home or self-care (01) ==
LOC: HO.HMGCX 09:50
PROVIDERS: PCP Nurse Practitioner Family; Visit Provider Physician Assistant
DX: K59.00 Constipation, unspecified (principal); K59.03 Drug induced constipation
CPT/HCPCS: 74018

== ENCOUNTER 2025-02-06 09:50 | Outpatient (AMB) | payer OTHER, SELFPAY ==
--- NOTE | 2025-02-06 10:53 | AM.OFFWIN_ITS ---
Intake Vital Signs 02/06/25 10:56 Height 5 ft 6 in Weight 238 lb BMI 38.4 BP 108/70 Blood Pressure Location Lt brachial Position Sitting Pulse 64 Pulse Source Pulse Oximeter Pulse Oximetry (%) 98 Oxygen Delivery Method Room Air Intake Visit Reasons: EP digestive issues/nausea Intake Note: Patient here for constipation and nausea unsure if its wegovy related. Patient Tobacco Use Status: Never used Tobacco Allergies No Known Allergies Allergy (Verified 02/06/25 10:57) Environmental Allergy (Unknown, Uncoded 02/06/25 10:57) none Do you need a note to return to daycare/school/sports/work: No HPI HPI Comments History of Present Illness Details History of Present Illness The patient is a 44-year-old female presenting with chronic constipation potentially exacerbated by medication. The patient has a long-standing history of constipation, experiencing increased severity since initiating Wegovy (Semaglutide) on November 26, 2024. The severity of symptoms has progressed, with consistent manual interventions required for bowel evacuation due to resultant nausea and occasional difficulty swallowing. The current prescribed therapy, Wegovy, has been adjusted upward, coinciding with increased constipation symptoms. Despite using various jsli-its-dmdvipx laxatives, such as citrate solutions, regular relief remains elusive. The patient is able to pass gas, which is noted as a positive sign amidst concerns of potential bowel obstruction. She denies any blood in her stool, fevers, vomiting, extreme abdominal pain but does have generalized abdominal discomfort enough to go home from work today. Physical Exam General: Cooperative, healthy appearing, comfortable, no acute distress and well developed Orientation: Patient oriented x3 Limitations: No limitations Head: Normal to inspection Ears: Hearing grossly normal bilaterally Nose: Normal External nose present Face and sinus: Normal facial exam Eyes: Appearance normal, both eyes and all related structures Neck: Normal visual inspection and Yes full ROM Respiratory: Normal respiratory effort and able to speak in complete sentences. GI: obese abdomen, soft, no TTP (deep), negative mcburneys, negative murphys Skin: No rashes or lesions noted Neuro: Patient oriented x3 Extremities: Normal to inspection [facility] Medical History (Updated 02/06/25 @ 11:38 by Leola uGtierrez PA-C) Chest congestion Cough Left Achilles tendinitis Plantar fasciitis, left Arthritis History of torn meniscus of knee COVID-19 (~05/2020) GERD (gastroesophageal reflux disease) Surgical History History of transurethral resection of bladder tumor (TURBT) Hx of foot surgery History of esophagogastroduodenoscopy (EGD) Previous section (2007) Family History Father Seizure HTN (hypertension) Diabetes No family history of cancer Mother Diabetes HTN (hypertension) S/P triple vessel bypass Daughter Mental health disorder No family history of cancer Social History Housing: Apartment Alcohol intake: current Alcohol intake frequency: holidays/special occasions only Patient Tobacco Use Status: Never used Tobacco e-Cigarette/Vaping Use: Never Used Second Hand Smoke Exposure: No service: No Current occupational status: employed Current occupation: [employer] Current occupational exposures/hazards: Yes Cognitive needs: No Hearing needs: No Vision needs: No Review of Systems Const All systems reviewed & are unremarkable except as noted in HPI and below Physical Exam Vital Signs: Last Vital Signs Pulse 64 02/06/25 10:56 BP 108/70 02/06/25 10:56 Pulse Ox 98 02/06/25 10:56 Oxygen Delivery Method Room Air 02/06/25 10:56 BMI result Body Mass Index 38.4 Assessment & Plan Assessment & Plan (1) Constipation: Code(s): K59.00 - Constipation, unspecified Qualifiers: Constipation type: drug induced constipation Qualified Code(s): K59.03 - Drug induced constipation Plan: VSS, pt well appearing and PE unremarkable. The evaluation and management plan initiates with an emphasis on addressing chronic constipation potentially worsened by Wegovy. The patient should contact her prescriber for review and potential dosage adjustments. I recommended Metamucil for consistent daily bowel management and highlighted the importance of dietary fiber and fluid increase. A KUB X-ray is advised to assess potential constipation severity and ensure it has not approached obstructive levels though she is passing gas which is reassuring. Maintaining electronic communication with her healthcare providers through a digital portal may enhance follow-up and manage ongoing therapy effectively. The need for prompt medical attention should occur should fever, vomiting, blood in her stool or inability to pass gas develop, indicating potential emergency. Patient was informed and verbally consented to the use of an ambient scribe for clinic note documentation during this visit. Orders: Orders XR KUB Today K59.00 - Constipation, unspecified Coding Level of Care Code Est Pt Level 4 (42656) Diagnoses Drug-induced constipation K59.03 Constipation type: drug induced constipation
[2025-02-06 10:56] VITALS: BP 108/70; PULSE 64; O2SAT 98; BMI 38.4
== END 2025-02-06 11:32 | disposition home or self-care (01) ==
PROVIDERS: PCP Nurse Practitioner Family; Visit Provider Physician Assistant
DX: K59.03 Drug induced constipation (principal)

== ENCOUNTER → 2025-02-06 11:31 | Outpatient (BNV) | payer OTHER, SELFPAY | PROVIDERS: PCP Nurse Practitioner Family; Visit Provider Radiology Diagnostic Radiology | DX: K59.00 Constipation, unspecified (principal) | CPT/HCPCS: 74018 ==

== ENCOUNTER 2025-02-14 16:06 | Outpatient (REF) | payer OTHER, SELFPAY ==
--- OUTSIDE RECORDS SUMMARY | 2025-02-14 18:44 | XMS_ITS | Patient Health Record ---
Author Organization [facility] Address [address] [facility] [place] [address] Care Team Providers Care Fixed Income Portfolio Manager Name Role Phone Herman Moeller Primary Care Provider Unav ailable Taylor Perez Unavailable [phone] AlanLeonard arias Unavailable [phone] Allergies Allergen (clinical drug ingredient) Drug/Non Drug [...] Status Risk Notes Problem Plantar fascial fibromatosis (23901619) Plantar fascial fibromatosis (M72.2) Active confirmed Problem Plantar wart (36499495) Plantar wart (B07.0) Active confirmed Problem 075651204 Neuropathy (G62.9) Active confirmed Problem 645721021565414 Neuritis of righ t foot (G57.91) Active confirmed Problem Mononeuropathy of lower limb (300639892) Neuritis of left foot (G57.92) Active confirmed Problem 2624569638362726 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) Active confirmed Vital Signs Height 5ft 6in in 08/26/2024 Weight 264 lbs 08/26/2024 BMI 42.61 kg/m2 08/26/2024 Encounters Encounter Location Date Provider Diagnosis [address] [address] 05/30/2024 Taylor Perica Muscle cramp, nocturnal R25.2 ; Plantar fascial fibromatosis M72.2 and Achilles tendinitis of left lower extremity M76.[address] [address] 08/26/2024 Taylor Perica Muscle cramp, nocturnal R25.2 ; Plantar fascial fibromatosis M72.2 ; Achilles tendinitis of left lower extremity M76.62 ; Neuritis of left foot G57.92 ; Metatarsalgia, left foot M77.42 ; Pain in left foot M79.672 ; Bursitis of left foot M77.52 ; Calcaneal spur, left foot M77.32 and Primary osteoarthritis of left foot M19.[address] [address] 05/30/[address] [address] 08/19/2024 [facility] [address] [address] 08/26/2024 Taylor Garciasa [facility] [address] [address] 08/31/2024 Leonard Phillips [facility] [address] [address] 10/20/2024 Leonard Alan [facility] [address] [address] 11/29/2024 Leonardman Phillips [facility] [address] [address] 12/26/2024 Leonard Alan [facility] [address] [address] 01/25/2025 Leonard Phillips [facility] Encounter Date Diagnosis (ICD Code) Assessment Notes Treatment Notes Treatment Clinical Notes Section Notes 05/30/2024 Plantar fascial fibromatosis (ICD-10 - M72.2) 05/30/2024 Muscle cramp, nocturnal (ICD-10 - R25.2) 08/26/2024 Plantar fascial fibromatosis (ICD-10 - M72.2) 08/26/2024 Muscle cramp, nocturnal (ICD-10 - R25.2) 08/26/2024 Achilles tendinitis of left lower extremity (ICD-10 - M76.62) 05/30/2024 Achilles tendinitis of left lower extremity (ICD-10 - M76.62) 08/26/2024 Neuritis of left foot (ICD-10 - G57.92) 08/26/2024 Metatarsalgia, left foot (ICD-10 - M77.42) 08/26/2024 Pain in left foot (ICD-10 - [...] X ray : Foot, right 3V 02/26/2023 [id number] Destruction, 1-14 02/26/2023 [id number] TENDON SHEATH/LIGAMENT 0 04/30/2023 Insurance Providers Payer Name Payer Address Payer Phone Subscriber Number Group Number Insured Name Patient Relationship to Insured Coverage Start Date Coverage End Date [facility] [address] [place] [address] [phone] [id number] Silvana Ruiz Self - patient is the insured Medical (General) History Medical History History ICD Code Anxiety Arthritis Back pain Chicken pox Reflux ( GERD) Surgical History Surgery Date(Month/Year) 09/12/08 [place] Plantar Fasciotomy Left ft 3 knee surgery left 06/20/2024
--- OUTSIDE RECORDS SUMMARY | 2025-02-14 18:44 | XMS_ITS | Clinical Summary ---
Author Organization [facility] Address [address] [place] [address] Phone Care Team Providers Care Dental Service Technician Name Role Phone Unavailable Primary Care Provider [...]
--- OUTSIDE RECORDS SUMMARY | 2025-02-14 18:44 | XMS_ITS ---
Author Organization [facility] Address [address] [place] [address] Care Team Providers Care Bed Spring Maker Name Role Phone Herman Moeller Primary Care Provider Unav ailable DieterTaylor archuleta Unavailable [phone] Leonard Phillips Unavailable [phone] REASON FOR VISIT FMLA Encounters Encounter Location Date Provider Diagnosis [facility] [address] [place] [address] 12/26/2024 Leonard Phillips Plan Of Treatment No Information Progress Notes * Soha RUIZceDOB:1980 (44 yo F)Acc No.[id number]:12/26/2024 Patient:?Silvana RUIZ :1980???Age:44 Y???Sex:Female Address:[address] [place] [address], [place] [address] * true * Date:? Generated for Printi ng/Fajanyg/eTransmitting on:?02/14/2025 06:43 PM EDT
--- OUTSIDE RECORDS SUMMARY | 2025-02-14 18:44 | XMS_ITS ---
Author Organization [facility] Address [address] [place] [address] Care Team Providers Care Irish Moss Gatherer Name Role Phone Herman Moeller Primary Care Provider Unav ailable DieterTaylor archuleta Unavailable [phone] Leonard Phillips Unavailable [phone] REASON FOR VISIT FMLA Encounters Encounter Location Date Provider Diagnosis [facility] [address] [place] [address] 01/25/2025 Leonard Phillips Plan Of Treatment No Information Progress Notes * Soha RUIZceDOB:1980 (44 yo F)Acc No.[id number]:01/25/2025 Patient:?RUIZSilvana :1980???Age:44 Y???Sex:Female Address:[address] [place] [address], [place] [address] * true * Date:? Generated for Printi ng/Fajanyg/eTransmitting on:?02/14/2025 06:44 PM EDT
--- OUTSIDE RECORDS SUMMARY | 2025-02-14 18:44 | XMS_ITS ---
Author Organization [facility] Address [address] [place] [address] Care Team Providers Care Kiln Head House Operator Name Role Phone Herman Moeller Primary Care Provider Unav ailable DieterTaylor archuleta Unavailable [phone] Leonard Phillips Unavailable [phone] REASON FOR VISIT Pain Management Encounters Encounter Location Date Provider Diagnosis [facility] [address] [place] [address] 11/29/2024 Leonard Phillips Plan Of Treatment No Information Progress Notes * Soha RUIZceDOB:1980 (44 yo F)Acc No.[id number]:11/29/2024 Patient:?RUIZSilvana :1980???Age:44 Y???Sex:Female Address:[address] [place] [address] [place] [address] * true * Date:? Generated for Printi ng/Fajanyg/eTransmitting on:?02/14/2025 06:44 PM EDT
== END 2025-02-14 16:07 | disposition home or self-care (01) ==
LOC: HO.MAMMO 16:06
PROVIDERS: PCP Nurse Practitioner Family; Visit Provider Nurse Practitioner Family
DX: Z12.31 Encounter for screening mammogram for malignant neoplasm of breast (principal)
CPT/HCPCS: 77063; 77067

== ENCOUNTER → 2025-02-14 16:15 | Outpatient (BNV) | payer OTHER, SELFPAY | PROVIDERS: PCP Nurse Practitioner Family; Visit Provider Internal Medicine | DX: Z12.31 Encounter for screening mammogram for malignant neoplasm of breast (principal) | CPT/HCPCS: 77063; 77067 ==

== ENCOUNTER 2025-03-09 07:25 | Outpatient (REF) | payer OTHER, SELFPAY ==
--- NOTE | ~2025-03-09 | XR_ITS ---
EXAMINATION: XR CERVICAL SPINE CLINICAL INFORMATION: M50.90 - Cervical disc disorder, unspecified, unspecified cervical region COMPARISON: 11/30/2017. TECHNIQUE: 2 views of the cervical spine were obtained. FINDINGS: There is a minimal levoconvex scoliosis, possibly positional. There is mild reversal of the normal lordosis centered at C5. There is no significant subluxation. No fracture, compression deformity, or suspicious bone lesion. C1-2 articulation and craniocervical junction is intact and aligned. Moderate disc degeneration present C4-5. Disc spaces otherwise largely preserved. Facets normally aligned with normal appearance. Prevertebral and paravertebral soft tissues appear normal. Lung apices appear clear. XR/XR cervical spine 2V IMPRESSION: 1. No acute bony abnormalities. 2. Degenerative disc changes focally at C4-5. Electronically signed by: Ezra Mcclendon MD 03/10/2025 03:17 PM EDT
--- OUTSIDE RECORDS SUMMARY | 2025-03-09 08:15 | XMS_ITS | Clinical Summary ---
Author Organization [facility] Address [address] [place] [address] Phone Care Team Providers Care Administrative Services Officer Name Role Phone Unavailable Primary Care Provider [...]
[2025-03-09 10:32] LABS: MANUAL DIFF FLAG NO
[2025-03-09 10:43] LABS: Basophils Percent Auto 0.6 % (0-2); Eosinophils Absolute Auto 0.1 X10*3/uL (0.0-0.4); Eosinophils Percent Auto 1.6 % (0-4); Hematocrit 39.8 % (37.0-47.0); Hemoglobin 13.1 g/dl (12.0-16.0); Imm Gran Abs Auto 0.02 X10*3/uL (0.00-0.03); Imm Gran Pct Auto 0.3 % (0.0-0.4); Lymphocytes Absolute Auto 1.9 X10*3/uL (1.2-4.9); Lymphocytes Percent Auto 30.5 % (20-40); Mean Corpuscular HGB Conc 32.9 g/dl (31.0-35.0); Mean Corpuscular Hemoglobin 30.3 pg (27.0-33.0); Mean Corpuscular Volume 91.9 fL (80.0-98.0); Mean Platelet Volume 10.4 fL (9.4-12.3); Monocytes Absolute Auto 0.3 X10*3/uL (0.1-1.2); Monocytes Percent Auto 4.8 % (2-11); Neutrophils Absolute Auto 3.9 x10*3/uL (2.0-8.3); Neutrophils Percent Auto 62.2 % (45-73); Platelet Count 271 X10*3/uL (160-400); Red Blood Count 4.33 X10*6/uL (4.20-5.50); Red Cell Distribution Width 13.7 % (11.0-16.0); White Blood Count 6.3 X10*3/uL (4.8-10.8)
[2025-03-09 11:09] LABS: Alanine Aminotransferase 17 U/L (0-31); Albumin Level 3.7 g/dL (3.5-5.0); Alkaline Phosphatase 64 U/L (39-117); Anion Gap 9 (12-20); Aspartate Amino Transferase 32 U/L (5-31); Bilirubin Total 0.9 mg/dL (0.0-1.0); Blood Urea Nitrogen 8 mg/dL (9-16); Calcium 8.9 mg/dL (8.4-10.2); Carbon Dioxide 26 mmol/L (22-29); Chloride 109 mmol/L (96-108); Cholesterol 112 mg/dL (<200); Estimated Glomerular Filt Rate > 60; Glucose Fasting 82 mg/dL (60-99); HDL Cholesterol 35 mg/dL (>40); LDL Cholesterol Calculated 68 mg/dL (<100); Potassium 3.4 mmol/L (3.3-5.1); Sodium 141 mmol/L (135-145); Total Protein 7.2 g/dL (6.5-8.0); Triglycerides 49 mg/dL (<150)
[2025-03-09 11:23] LABS: Appearance Urine Clear; Color Urine Yellow; Glucose Urine UA Negative (Negative); Leukocyte Esterase Urine Trace (Negative); Nitrite Urine Negative (Negative); PH 5.5 (5.0-9.0); Specific Gravity - Urine 1.025 (1.005-1.025); UMIC TRIGGER UACC YES; Urine Blood Moderate (2+) (Negative); Urine Ketones Trace mg/dL (Negative); Urine Protein Trace mg/dL (Neg-Trace)
[2025-03-09 11:28] LABS: TSH reflex Free T4 1.58 uIU/mL (0.32-4.0)
[2025-03-09 11:29] LABS: Bacteria Urine None Seen (None Seen); Hyaline Casts Urine 0-2 /LPF (0-2); WBC Urine 0-5 /HPF (0-5)
== END 2025-03-09 07:26 | disposition home or self-care (01) ==
LOC: HO.HMGCX 07:25
PROVIDERS: PCP Nurse Practitioner Family; Visit Provider Nurse Practitioner Family
DX: Z00.00 Encounter for general adult medical examination without abnormal findings (principal); M50.90 Cervical disc disorder, unspecified, unspecified cervical region
CPT/HCPCS: 36415; 72040; 80053; 80061; 81001; 84443; 85025

== ENCOUNTER 2025-03-09 07:25 | Outpatient (AMB) | payer OTHER, SELFPAY ==
--- OUTSIDE RECORDS SUMMARY | 2025-03-09 07:28 | XMS_ITS | Clinical Summary ---
Author Organization [facility] Address [address] [place] [address] Phone Care Team Providers Care Vector Control Assistant Name Role Phone Unavailable Primary Care Provider [...] this topic Meningococcal Vaccine Aged Out No barotlome manny eligible based on patient's age to complete this topic Pneumococcal Vaccine Aged Out No long er eligible based on patient's age to complete this topic
--- OUTSIDE RECORDS SUMMARY | 2025-03-09 07:28 | XMS_ITS ---
Author Organization [facility] Address [address] [place] [address] Care Team Providers Care Tubing Assembler Name Role Phone Herman Moeller Primary Care Provider Unav ailable DieterTaylor archuleta Unavailable [phone] Leonard Phillips Unavailable [phone] REASON FOR VISIT FMLA Encounters Encounter Location Date Provider Diagnosis [facility] [address] [place] [address] 01/25/2025 Leonard Phillips Plan Of Treatment No Information Progress Notes * Soha RUIZceDOB:1980 (44 yo F)Acc No.[id number]:01/25/2025 Patient:?RUIZStormSilvana :1980???Age:44 Y???Sex:Female Address:[address] [place] [address], [place] [address] * true * Date:? Generated for Printi ng/Fajanyg/eTransmitting on:?03/09/2025 07:28 AM EDT
--- OUTSIDE RECORDS SUMMARY | 2025-03-09 07:28 | XMS_ITS ---
Author Organization [facility] Address [address] [place] [address] Care Team Providers Care Avp Name Role Phone Herman Moeller Primary Care Provider Unav ailable DieterTaylor archuleta Unavailable [phone] Leonard Phillips Unavailable [phone] REASON FOR VISIT Pain Management Encounters Encounter Location Date Provider Diagnosis [facility] [address] [place] [address] 11/29/2024 Leonard Phillips Plan Of Treatment No Information Progress Notes * Soha RUIZceDOB:1980 (44 yo F)Acc No.[id number]:11/29/2024 Patient:?RUIZStormSilvana :1980???Age:44 Y???Sex:Female Address:[address] [place] [address] [place] [address] * true * Date:? Generated for Printi ng/Fajanyg/eTransmitting on:?03/09/2025 07:28 AM EDT
--- OUTSIDE RECORDS SUMMARY | 2025-03-09 07:28 | XMS_ITS | Patient Health Record ---
Author Organization [facility] Address [address] [facility] [place] [address] Care Team Providers Care Heater Tender Name Role Phone Herman Moeller Primary Care Provider Unav ailable Taylor Perez Unavailable [phone] AlanLeonard arias Unavailable [phone] Allergies Allergen (clinical drug ingredient) Drug/Non Drug [...] Status Risk Notes Problem Plantar fascial fibromatosis (64435004) Plantar fascial fibromatosis (M72.2) Active confirmed Problem Plantar wart (58322970) Plantar wart (B07.0) Active confirmed Problem 621793583 Neuropathy (G62.9) Active confirmed Problem 812256573128361 Neuritis of righ t foot (G57.91) Active confirmed Problem Mononeuropathy of lower limb (177767963) Neuritis of left foot (G57.92) Active confirmed Problem 1851026517144200 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) Active confirmed Vital Signs Height 5ft 6in in 08/26/2024 Weight 264 lbs 08/26/2024 BMI 42.61 kg/m2 08/26/2024 Encounters Encounter Location Date Provider Diagnosis [address] [address] 05/30/2024 Taylor Perica Muscle cramp, nocturnal R25.2 ; Plantar fascial fibromatosis M72.2 and Achilles tendinitis of left lower extremity M76.[address] [address] 08/26/2024 Taylor Perica Muscle cramp, nocturnal R25.2 ; Plantar fascial fibromatosis M72.2 ; Achilles tendinitis of left lower extremity M76.62 ; Neuritis of left foot G57.92 ; Metatarsalgia, left foot M77.42 ; Pain in left foot M79.672 ; Bursitis of left foot M77.52 ; Calcaneal spur, left foot M77.32 and Primary osteoarthritis of left foot M19.[address] [address] 05/30/[address] [address] 08/19/2024 [facility] [address] [address] 08/26/2024 Taylor Garciasa [facility] [address] [address] 08/31/2024 Leonard Phillips [facility] [address] [address] 10/20/2024 Leonard Alan [facility] [address] [address] 11/29/2024 Leonardman Phillips [facility] [address] [address] 12/26/2024 Leonard Alan [facility] [address] [address] 01/25/2025 Leonard Phillips [facility] Encounter Date Diagnosis (ICD Code) Assessment [...] X ray : Foot, right 3V 02/26/2023 11342-[id number] Destruction, 1-14 02/26/2023 [id number] TENDON SHEATH/LIGAMENT 0 04/30/2023 Insurance Providers Payer Name Payer Address Payer Phone Subscriber Number Group Number Insured Name Patient Relationship to Insured Coverage Start Date Coverage End Date [facility] [address] [place] [address] [id number] Silvana Ruiz Self - patient is the insured Medical (General) History Medical History History ICD Code Anxiety Arthritis Back pain Chicken pox Reflux ( GERD) Surgical History Surgery Date(Month/Year) 09/12/08 [place] Plantar Fasciotomy Left ft 3 knee surgery left 06/20/2024
--- OUTSIDE RECORDS SUMMARY | 2025-03-09 07:28 | XMS_ITS ---
Author Organization [facility] Address [address] [place] [address] Care Team Providers Care Logistic Specialist Name Role Phone Herman Moeller Primary Care Provider Unav ailable DieterTaylor archuleta Unavailable [phone] Leonard Phillips Unavailable [phone] REASON FOR VISIT FMLA Encounters Encounter Location Date Provider Diagnosis [facility] [address] [place] [address] 12/26/2024 Leonard Phillips Plan Of Treatment No Information Progress Notes * Soha RUIZceDOB:1980 (44 yo F)Acc No.[id number]:12/26/2024 Patient:?Silvana RUIZ :1980???Age:44 Y???Sex:Female Address:[address] [place] [address] [place] [address] * true * Date:? Generated for Printi ng/Fajanyg/eTransmitting on:?03/09/2025 07:27 AM EDT
--- NOTE | 2025-03-09 07:37 | A.OFFPC_ITS ---
Vital Signs 03/09/25 07:41 Height 5 ft 6 in Weight 230 lb BMI 37.1 BP 130/80 Blood Pressure Location Rt brachial Position Sitting Pulse 71 Pulse Source Pulse Oximeter Temp 98.3 F Temp Source Oral Pulse Oximetry (%) 100 Oxygen Delivery Method Room Air Intake Visit Reasons: Annual PE Intake Note: Pt is here today for her PE Allergies No Known Allergies Allergy (Verified 03/09/25 07:37) Environmental Allergy (Unknown, Uncoded 03/09/25 07:37) none Medication List - Last Reconciled 03/09/25 by Herman Clark, [facility]- medroxyprogesterone 150 mg IM [id number] semaglutide (weight loss) (Wegovy) 1 mg (0.5 mL) subcut QWEEK Tobacco use date assessed: 03/09/25 Dental Screening Dental Screen Date: 02/17/24 Did you have a dental visit in the last 12 months?: Yes Did you have a dental problem in the last 6 months where you did not have access to dental care?: No Was dental information given to patient?: Patient has dentist HPI Annual PE HPI Details History of Present Illness The patient is a 44-year-old female presenting for a physical exam. She is currently seeing an cnc mill and lathe operator for weight loss medication, which has been effective as she reports improvements in both appearance and overall health. Evaluation by a urologist for microhematuria is ongoing; although the condition is mild and being worked up, it has not been associated with other significant symptoms. Cervical neck discomfort has been described, with intermittent pain extending into the posterior head region, though no radicular symptoms are noted. The cervical discomfort does not extend to her extremities, and further imaging with a cervical x-ray is under consideration. Additionally, the patient has chronic idiopathic constipation since and requires potential referral to gastroenterology for this issue. Health Maintenance - Mammogram: Up to date - Pap smears: Managed by MARINE WELDER - Referral to dermatology for a mole on the left upper shoulder - Consideration for cervical x-ray Social History - No specific social determinants of hea lth discussed Review of Systems - Neurological: Denies radicular symptom s, except occasionally to the back of the head - Gastrointestinal: Reports chronic idio pathic constipation - Others: No additional symptoms reporte d or denied -denies any CP, blood in stool, fevers, chills, si or hi Physical Exam General: Cooperative, healthy appearing, comfortable, no acute distress and well developed Orientation: Patient oriented x3 Limitations: No limitations Head: Normal to inspection Ears: Hearing grossly normal bilaterally Nose: Normal external nose present Face and sinus: Normal facial exam Eyes: Appearance normal, both eyes and all related structures Neck: Normal visual inspection and Yes full ROM, negative Spurling's test for cervical spine issue, neck flexion without pain Respiratory: Normal respiratory effort and able to speak in complete sentences. Clear to auscultation bilaterally Cardiovascular: Regular rate and rhythm. Normal S1 and S2 GI: Normal to inspection. Soft to palpation and nontender Skin: No rashes or lesions noted, except for a mole on the posterior left upper shoulder Neuro: Patient oriented x3 Extremities: Normal to inspection Results Plan For the patient's microhematuria, ongoing evaluation by a urologist will continue as planned. For the cervical neck discomfort, I considered obtaining a cervical x-ray due to symptoms extending to the posterior head and plan to follow up on any further developments. In light of her chronic idiopathic constipation, I suggest a referral to gastroenterology to assess more effective management strategies. Lastly, a dermatology referral is planned for a bothersome mole on her shoulder. Discussion Notes I reviewed the patient's current issues and care plans during the visit. For the cervical neck discomfort, we discussed the possibility of ordering an x-ray depending on symptom progression. The weight loss management under endocrinology care was acknowledged as progressing well. Regarding the chronic constipation, I recommended gastroenterology consultation to explore therapeutic options. For the concerns about the mole, I highlighted the importance of a dermatological assessment, given its changes. We also reviewed the necessity for ongoing monitoring by her urologist for the microhematuria. Each of these interventions was discussed with the patient, ensuring she understood the rationale and was agreeable to the plans moving forward. Patient Instructions - Continue seeing endocrinology for weig ht management - Monitor for any changes in neck discom fort and report - Schedule an appointment with a gastroe nterologist for constipation evaluation - Arrange a dermatology appointment for mole assessment - Watch for any additional symptoms rela fernanda to microhematuria and continue follow-ups with urology [facility] Medical History Chest congestion Cough Left Achilles tendinitis Plantar fasciitis, left Arthritis History of torn meniscus of knee COVID-19 (~05/2020) GERD (gastroesophageal reflux disease) Surgical History History of transurethral resection of bladder tumor (TURBT) Hx of foot surgery History of esophagogastroduodenoscopy (EGD) Previous section (2007) Family History Father Seizure HTN (hypertension) Diabetes No family history of cancer Mother Diabetes HTN (hypertension) S/P triple vessel bypass Daughter Mental health disorder No family history of cancer Social History Housing: Apartment Alcohol intake: current Alcohol intake frequency: holidays/special occasions only Patient Tobacco Use Status: Never used Tobacco e-Cigarette/Vaping Use: Never Used Second Hand Smoke Exposure: No service: No Current occupational status: employed Current occupation: [employer] Current occupational exposures/hazards: Yes Cognitive needs: No Hearing needs: No Vision needs: Yes Questionnaire PHQ-9 Over the last 2 weeks, how often have you been bothered by any of the following problems? 1. Little interest or pleasure in doing things: not at all 2. Feeling down, depressed, or hopeless: not at all 3. Trouble falling or staying asleep, or sleeping too much: not at all 4. Feeling tired or having little energy: not at all 5. Poor appetite or overeating: not at all 6. Feeling bad about yourself - or that you are a failure or have let yourself or your family down: not at all 7. Trouble concentrating on things, such as reading the newspaper or watching television: not at all 8. Moving or speaking so slowly that other people could have noticed. Or the opposite - being so fidgety or restless that you have been moving around a lot more than usual: not at all 9. Thoughts that you would be better off or of hurting yourself in some way: not at all Total score: 0 Source: Developed by Drs. Artie Wheeler, Serina Torres, Jase Sandoval and colleagues, with an educational dennise from [employer]. Thrive Questionnaire Date Thrive assessed: 03/09/25 I am a: Patient What is your living situation today?: I have a steady place to live Within the past 12 months, did the food you bought not last and you didn't have the money to get more?: Never true Within the past 12 months, did you worry whether your food would run out before you got money to buy more?: Sometimes True Do you have trouble paying for medicines?: No Do you have trouble getting transportation to medical appointments?: No Do you have trouble paying your heating and electricity bill?: I choose not to answer this question Do you have trouble taking care of your child, family member or friend?: No Do you have trouble with day-to-day activities such as bathing, preparing meals, shopping, managing finances, etc.?: No Are you currently unemployed and looking for a job?: No Are you interested in more education?: No Please select the resources that you would like help with: None Currently or been in a relationship where the following occur: No concerns reported THRIVE Score: 1 AUDIT C Alcohol Use Questionnaire (AUDIT-C) 1. How often do you have a drink containing alcohol?: Monthly or less 2. How many drinks containing alcohol do you have on a typical day when you are drinking?: 1 or 2 3. How often do you have six or more drinks on one occasion?: Never Total Score: 1 PA-7 AMB Questionnaire PA-7 Date PA - 7 assessed: 03/09/25 Feeling nervous, anxious, or on edge: 1 = Several days Not being able to stop or control worryin = Not at all Worrying too much about different things: 0 = Not at all Trouble relaxin = Not at all Being so restless that it is hard to sit still: 0 = Not at all Becoming easily annoyed or irritable: 1 = Several days Feeling afraid as if something awful might happen: 0 = Not at all Total PA-7 score (0-4 normal; 5-9 mild; 10-14 moderate; 15-21 severe): 2 Source: Developed by Drs. Artie Wheeler, Serina Torres, Jase Sandoval and colleagues, with an educational dennise from [employer]. Physical exam (Primary Care) Vital Signs: Last Vital Signs Temp 98.3 F 03/09/25 07:41 Pulse 71 03/09/25 07:41 BP 130/80 03/09/25 07:41 Pulse Ox 100 03/09/25 07:41 Oxygen Delivery Method Room Air 03/09/25 07:41 BMI result Body Mass Index 37.1 Tobacco/Smoking Status: Tobacco use Status Tobacco use date assessed 03/09/25 03/09/25 07:38 Patient Tobacco Use Status Never used Tobacco 03/09/25 07:38 e-Cigarette/Vaping Use Never Used 03/09/25 07:38 PHQ-9: PHQ-9 Score PHQ-9: Total score 0 03/09/25 07:38 Thrive Assessment: Date of Thrive Assessment Date Thrive assessed 03/09/25 03/09/25 07:38 Currently or been in a relationship where the following occur: No concerns reported Coding Level of Care Code Est Pt Prev Care 40-64y(19749) Diagnoses Physical exam Z00.00 Cervical neck pain with evidence of disc disease M50.90 Chronic idiopathic constipation K59.04 Atypical mole D22.9 Assessment & Plan Assessment & Plan (1) Physical exam: Code(s): Z00.00 - Encounter for general adult medical examination without abnormal findings Category: Medical (2) Cervical neck pain with evidence of disc disease: Code(s): M50.90 - Cervical disc disorder, unspecified, unspecified cervical region Category: Medical (3) Chronic idiopathic constipation: Code(s): K59.04 - Chronic idiopathic constipation Category: Medical (4) Atypical mole: Code(s): D22.9 - Melanocytic nevi, unspecified Category: Medical Plan . Orders: Orders Complete Blood Count Auto Diff Today Z00.00 - Encounter for general adult medical examination without abnormal findings Comprehensive Percival. Panel Fast Today Z00.00 - Encounter for general adult medical examination without abnormal findings UA CC w/rflx Micro + Cult Today Z00.00 - Encounter for general adult medical examination without abnormal findings Lipid Panel Today Z00.00 - Encounter for general adult medical examination without abnormal findings XR cervical spine 2V Today M50.90 - Cervical disc disorder, unspecified, unspecified cervical region TSH reflex Free T4 Today Z00.00 - Encounter for general adult medical examination without abnormal findings Referrals Gastroenterology Referral K59.04 - Chronic idiopathic constipation Dermatology Referral D22.9 - Melanocytic nevi, unspecified
[2025-03-09 07:41] VITALS: BP 130/80; PULSE 71; TEMP 36.8; O2SAT 100; BMI 37.1
== END 2025-03-09 08:02 | disposition home or self-care (01) ==
LOC: HO.HMCC 07:26
PROVIDERS: PCP Nurse Practitioner Family; Visit Provider Nurse Practitioner Family
DX: Z00.00 Encounter for general adult medical examination without abnormal findings (principal); M50.90 Cervical disc disorder, unspecified, unspecified cervical region; K59.04 Chronic idiopathic constipation; D22.9 Melanocytic nevi, unspecified

== ENCOUNTER → 2025-03-09 08:34 | Outpatient (BNV) | payer OTHER, SELFPAY | PROVIDERS: PCP Nurse Practitioner Family; Visit Provider Radiology Diagnostic Radiology | DX: M50.321 Other cervical disc degeneration at C4-C5 level (principal) | CPT/HCPCS: 72040 ==

== ENCOUNTER 2025-03-16 08:25 | Outpatient (REF) | payer OTHER, SELFPAY ==
--- NOTE | ~2025-03-16 | CT_ITS ---
CLINICAL HISTORY: R31.9 - Hematuria, unspecified CT abdomen and pelvis with and without contrast Comparison: None Findings: The lung bases are clear. Unremarkable gallbladder and solid organs. No urolithiasis. No bowel obstruction, pneumoperitoneum, or pneumatosis. Pelvic contents unremarkable. Normal appendix. No acute fracture. IMPRESSION: No acute findings. This document has been electronically signed by: John Ramos MD on 03/17/2025 08:41:31
--- OUTSIDE RECORDS SUMMARY | 2025-03-16 08:38 | XMS_ITS | Clinical Summary ---
Author Organization [facility] Address [address] [place] [address] Phone Care Team Providers Care Limousine Rental Clerk Name Role Phone Unavailable Primary Care Provider [...]
--- OUTSIDE RECORDS SUMMARY | 2025-03-16 08:38 | XMS_ITS ---
Author Organization [facility] Address [address] [place] [address] Care Team Providers Care Palletizer Operator Name Role Phone Herman Moeller Primary Care Provider Unav ailable DieterTalyor archuleta Unavailable [phone] Leonard Phillips Unavailable [phone] REASON FOR VISIT FMLA Encounters Encounter Location Date Provider Diagnosis [facility] [address] [place] [address] 01/25/2025 Leonard Phillips Plan Of Treatment No Information Progress Notes * Soha RUIZceDOB:1980 (44 yo F)Acc No.[id number]:01/25/2025 Patient:?Silvana RUIZ :1980???Age:44 Y???Sex:Female Address:[address] [place] [address], [place] [address] * true * Date:? Generated for Printi ng/Fajanyg/eTransmitting on:?03/16/2025 08:37 AM EDT
--- OUTSIDE RECORDS SUMMARY | 2025-03-16 08:38 | XMS_ITS | Patient Health Record ---
Author Organization [facility] Address [address] [facility] [place] [address] Care Team Providers Care Chucker Name Role Phone Herman Moeller Primary Care Provider Unav ailable Taylor Perez Unavailable [phone] AlanLeonard arias Unavailable [phone] Allergies Allergen (clinical drug ingredient) Drug/Non Drug [...] Status Risk Notes Problem Plantar fascial fibromatosis (75581264) Plantar fascial fibromatosis (M72.2) Active confirmed Problem Plantar wart (13075085) Plantar wart (B07.0) Active confirmed Problem 318757252 Neuropathy (G62.9) Active confirmed Problem [id number] Neuritis of righ t foot (G57.91) Active confirmed Problem Mononeuropathy of lower limb (252657958) Neuritis of left foot (G57.92) Active confirmed Problem [id number] 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672 ; Bursitis of left foot M77.52 ; Calcaneal spur, left foot M77.32 and Primary osteoarthritis of left foot M19.[address] [address] 05/30/[address] [address] 08/19/2024 [facility] [address] [address] 08/26/2024 Taylor Garciasa [facility] [address] [address] 08/31/2024 Leonard Phillips [facility] [address] [address] 10/20/2024 Leonard Alan [facility] [address] [address] 11/29/2024 Leonardman Phillips [facility] [address] [address] 12/26/2024 Leonard Alan [facility] [address] [address] 01/25/2025 Leonard Phillips [facility] [...] X ray : Foot, right 3V 02/26/2023 [id number] Destruction, 1-14 02/26/2023 [id number] TENDON SHEATH/LIGAMENT 0 04/30/2023 Insurance Providers Payer Name Payer Address Payer Phone Subscriber Number Group Number Insured Name Patient Relationship to Insured Coverage Start Date Coverage End Date [facility] [address] [place] [address] [id number] Silvana Ruiz Self - patient is the insured Medical (General) History Medical History History ICD Code Anxiety Arthritis Back pain Chicken pox Reflux ( GERD) Surgical History Surgery Date(Month/Year) 09/12/08 [facility] Plantar Fasciotomy Left ft 3 knee surgery left 06/20/2024
--- OUTSIDE RECORDS SUMMARY | 2025-03-16 08:38 | XMS_ITS ---
Author Organization [facility] Address [address] [place] [address] Care Team Providers Care Product Handler Name Role Phone Herman Moeller Primary Care Provider Unav ailable DieterTaylor archuleta Unavailable [phone] Leonard Phillips Unavailable [phone] REASON FOR VISIT FMLA Encounters Encounter Location Date Provider Diagnosis [facility] [address] [place] [address] 12/26/2024 Leonard Phillips Plan Of Treatment No Information Progress Notes * Soha RUIZceDOB:1980 (44 yo F)Acc No.[id number]:12/26/2024 Patient:?Silvana RUIZ :1980???Age:44 Y???Sex:Female Address:[address] [place] [address], [place] [address] * true * Date:? Generated for Printi ng/Fajanyg/eTransmitting on:?03/16/2025 08:37 AM EDT
--- OUTSIDE RECORDS SUMMARY | 2025-03-16 08:38 | XMS_ITS ---
Author Organization [facility] Address [address] [place] [address] Care Team Providers Care Early Childhood Assistant Name Role Phone Herman Moeller Primary Care Provider Unav ailable DieterTaylor archuleta Unavailable [phone] Leonard Phillips Unavailable [phone] REASON FOR VISIT Pain Management Encounters Encounter Location Date Provider Diagnosis [facility] [address] [place] [address] 11/29/2024 Leonard Phillips Plan Of Treatment No Information Progress Notes * Soha RUIZceDOB:1980 (44 yo F)Acc No.[id number]:11/29/2024 Patient:?Silvana RUIZ :1980???Age:44 Y???Sex:Female Address:[address] [place] [address] [place] [address] * true * Date:? Generated for Printi ng/Fajanyg/eTransmitting on:?03/16/2025 08:38 AM EDT
[2025-03-16] MEDS: iohexoL 350 MG/ML 100 ML INFUS..BTL IV (09:52)
== END 2025-03-16 08:26 | disposition home or self-care (01) ==
LOC: HO.CT 08:25
PROVIDERS: PCP Nurse Practitioner Family; Visit Provider Urology
DX: R31.9 Hematuria, unspecified (principal)
CPT/HCPCS: 74178; Q9967

== ENCOUNTER → 2025-03-16 08:27 | Outpatient (BNV) | payer OTHER, SELFPAY | PROVIDERS: PCP Nurse Practitioner Family; Visit Provider Specialist | DX: R31.9 Hematuria, unspecified (principal) | CPT/HCPCS: 74178 ==

== ENCOUNTER 2025-04-04 15:11 | Outpatient (AMB) | payer OTHER, SELFPAY ==
--- NOTE | 2025-04-04 15:43 | MHC.OFFVIS ---
Intake Visit Reasons: 12w/CT follow up Allergies No Known Allergies Allergy (Verified 03/09/25 07:37) Environmental Allergy (Unknown, Uncoded 03/09/25 07:37) none Medication List - Last Reconciled 04/04/25 by Morro Hunt MD medroxyprogesterone 150 mg IM [id number] semaglutide (weight loss) (Wegovy) 1 mg (0.5 mL) subcut QWEEK HPI Comments Details: 04/04/25--Silvana is a 44-year-old female who was referred for microscopic hematuria, initially evaluated in October,. She has had history of UTIs. Previous evaluation included imaging renal sono 11/10/23-- WNL, office cystoscopy noted an irregular bladder lesion. She is status post cystoscopy bladder biopsy on 03/01/2024. pathology results-inflammatory, lymphoid aggregate, chronic cystitis. Telehealth follow up today to discuss CT imaging results which were normal. Reviewed previous urine cytology 12/30/24- Negative for malignant cells. FU next year to check urine; if symptoms and urine remains stable discussed plan for prn follow up at that time. Results: CT Urogram 03/16/25-- No acute findings, urinary tract WNL. Labs: Urine cytology- 01/09/25- negative for malignant cells. 12/30/24--Silvana is a 44-year-old female who was referred for microscopic hematuria. She has had history of UTIs. work up included imaging renal sono 11/10/23-- WNL, office cystoscopy noted an irregular bladder lesion. She is status post cystoscopy bladder biopsy on 03/01/2024. pathology results-inflammatory, lymphoid aggregate, chronic cystitis. UA 3+blood, leuks neg. Plan repeat urine cytology, CT Urogram. 03/31/2024--Silvana is a 43-year-old female who was referred for microscopic hematuria office cystoscopy noted an irregular bladder lesion. She is status post cystoscopy bladder biopsy on 03/01/2024. The patient had an episode of gross hematuria after the biopsy. She was treated for urinary tract infection. I have reviewed pathology results-inflammatory, lymphoid aggregate, chronic cystitis. She has had history of UTIs. Follow-up in 9 months. 01/22/24--here for office cystoscopy. Urine cytology 12/10/2023--negative for malignant cells. Cystoscopy findings erythematous bladder lesion left posterior wall The patient states that her mother smoked in the home when she was a child. She had a UTI November that was treated by her PCP. Currently she denies irritative voiding symptoms. 12/10/23--Silvana is a 43 y/o who is here for evaluation for microscopic hematuria The patient denies urinary frequency, nocturia, gross hematuria, dysuria. She is sexually active, denies history of kidney stones, denies history of nicotine use. I have reviewed chart, imaging renal sono 11/10/23-- WNL, urine culture 09/24/23-- lactobaccillus. I have discussed workup to include FU for cystoscopy evaluation. [facility] Medical History Osteoarthritis of knees, bilateral Chest congestion Cough Left Achilles tendinitis Plantar fasciitis, left Arthritis History of torn meniscus of knee COVID-19 (~05/2020) GERD (gastroesophageal reflux disease) Surgical History History of transurethral resection of bladder tumor (TURBT) Hx of foot surgery History of esophagogastroduodenoscopy (EGD) Previous section (2007) Family History Father Seizure HTN (hypertension) Diabetes No family history of cancer Mother Diabetes HTN (hypertension) S/P triple vessel bypass Daughter Mental health disorder No family history of cancer Social History Housing: Apartment Alcohol intake: current Alcohol intake frequency: holidays/special occasions only Patient Tobacco Use Status: Never used Tobacco e-Cigarette/Vaping Use: Never Used Second Hand Smoke Exposure: No service: No Current occupational status: employed Current occupation: [employer] Current occupational exposures/hazards: Yes Cognitive needs: No Hearing needs: No Vision needs: Yes Telehealth Telehealth Telehealth Platform: Telephone Location of provider rendering services: practice address Location of patient: address on file Patient Identification confirmed using: Name, : Yes Telehealth method: voice only Patient verbally consented to treatment: Yes Patient verbally consented to billing insurance company: Yes Patient informed of any privacy concerns related to visit: Yes Minutes spent on Phone/Video with Pt.: 13 Results Reviewed Results Reviewed: Date of Service: 03/16/25 CLINICAL HISTORY: R31.9 - Hematuria, unspecified CT abdomen and pelvis with and without contrast Comparison: None Findings: The lung bases are clear. Unremarkable gallbladder and solid organs. No urolithiasis. No bowel obstruction, pneumoperitoneum, or pneumatosis. Pelvic contents unremarkable. Normal appendix. No acute fracture. IMPRESSION: No acute findings. Cytology- Urine-Collected: 12/30/24 Location: .[facility] Received: 01/03/25 Diagnosis Urine, cytology: Negative for high-grade urothelial carcinoma. COMMENT: Review of the cytology preparation demonstrates a cellular specimen composed of benign squames and urothelial cells. Red blood cells are identified. There is no significant atypia seen. Note: This report is corrected for a typographical error in the microscopic description. Clinical History Microscopic hematuria Material Received Urine Gross Description Received is 18 cc of very cloudy yellow fluid from which a ThinPrep slide is prepared. Collected: 03/01/24 [facility] Received: 03/02/24 Diagnosis Bladder, posterior wall lesion, transurethral resection: Partially denuded benign urothelium with marked chronic cystitis, reactive lymphoid follicles, and focal papillary hyperplasia; no evidence of malignancy; no muscularis propria present. Clinical History Bladder lesion Collected: 12/10/23 Location: [facility] Received: 12/15/23 Diagnosis Urine: Negative for high-grade urothelial carcinoma. COMMENT: Examination of a monolayer preparation slide shows many benign superficial squamous cells with bacteria and degenerated inflammatory cells, and few benign urothelial cells. Date of Service: 11/10/23 EXAMINATION: US RETROPERITONEAL COMPLETE (RENAL) CLINICAL INFORMATION: Other microscopic hematuria. COMPARISON: Ultrasound abdomen complete 08/15/2020 and 01/08/2017. CT abdomen and pelvis without contrast 12/19/2016. TECHNIQUE: Real-time imaging of the kidneys and bladder. FINDINGS: RIGHT KIDNEY: 11.1 x 3.5 x 5.8 cm (SAG x AP x TRV). The kidney is normal in size, contour, and echogenicity. Renal cortical thickness is normal. No calculi or focal parenchymal lesions. No hydronephrosis. LEFT KIDNEY: 9.6 x 4.5 x 4.4 cm (SAG x AP x TRV). The kidney is normal in size, contour, and echogenicity. Renal cortical thickness is normal. No calculi or focal parenchymal lesions. No hydronephrosis. BLADDER: Well distended and normal. Bilateral ureteral jets are demonstrated. Prevoid bladder volume is 145 mL. Postvoid bladder volume is 0.9 mL. US/US retroperitoneal comp IMPRESSION: Normal exam. Assessment & Plan Assessment & Plan (1) Cystitis: Code(s): N30.90 - Cystitis, unspecified without hematuria Category: Medical (2) Hematuria: Code(s): R31.9 - Hematuria, unspecified Category: Medical (3) History of recurrent UTIs: Code(s): Z87.440 - Personal history of urinary (tract) infections Category: Medical Plan Results: CT Urogram 03/16/25-- No acute findings, urinary tract WNL. Currently Asymptomatic, denies UTI symptoms FU next year to check urine; if symptoms and urine remains stable discussed plan for prn follow up at that time. Medications: Discontinued cyclobenzaprine can cause drowsiness Discontinued Reason: Patient no longer taking 10 mg PO BEDTIME 20 days PRN 20 tabs 0RF muscle spasm Patient Instructions: The patient had an opportunity to ask questions regarding treatment plan. The patient expressed understanding and agreement with the above treatment plan. The patient is aware they should contact our office by phone for worsening of their current condition or the appearance of new symptoms. Compliance is encouraged with any medications and followup testing that is ordered. It is a privilege to be allowed the opportunity to participate in the urologic care of your patient. If you have any questions or concerns regarding treatment for the above conditions please do not hesitate to contact me. The office telephone contact is [phone]. This note is constructed in part using voice recognition software. While every effort has been made to ensure accuracy residential insurance inspector errors may have been included. Yours sincerely, Morro Hunt MD Coding Level of Care Code Tele Est Pt Level 3 (89111) Diagnoses Cystitis N30.90 Hematuria R31.9 History of recurrent UTIs Z87.440
--- OUTSIDE RECORDS SUMMARY | 2025-04-04 16:16 | XMS_ITS ---
Author Organization [facility] Address [address] [place] [address] Care Team Providers Care Gunite Mixer Name Role Phone Herman Moeller Primary Care Provider Unav ailable DieterTaylor archuleta Unavailable [phone] Leonard Phillips Unavailable [phone] REASON FOR VISIT Pain Management Encounters Encounter Location Date Provider Diagnosis [facility] [address] [place] [address] 11/29/2024 Leonard Phillips Plan Of Treatment No Information Progress Notes * Soha RUIZceDOB:1980 (44 yo F)Acc No.[id number]:11/29/2024 Patient:?RUIZSilvana :1980???Age:44 Y???Sex:Female Address:[address] [place] [address] [place] [address] * true * Date:? Generated for Printi ng/Fajanyg/eTransmitting on:?04/04/2025 04:16 PM EDT
--- OUTSIDE RECORDS SUMMARY | 2025-04-04 16:16 | XMS_ITS | Patient Health Record ---
Author Organization [facility] Address [address] [facility] [place] [address] Care Team Providers Care Hitting Coach Name Role Phone Herman Moeller Primary Care Provider Unav ailable Taylor Perez Unavailable [phone] AlanLeonard arias Unavailable [phone] Allergies Allergen (clinical drug ingredient) Drug/Non Drug [...] Status Risk Notes Problem Plantar fascial fibromatosis (37542423) Plantar fascial fibromatosis (M72.2) Active confirmed Problem Plantar wart (49846440) Plantar wart (B07.0) Active confirmed Problem 682668221 Neuropathy (G62.9) Active confirmed Problem 404593056008654 Neuritis of righ t foot (G57.91) Active confirmed Problem Neuritis of left foot (G57.92) Active confirmed Problem [id number] 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) Active confirmed Vital Signs Height 5ft 6in in 08/26/2024 Weight 264 lbs 08/26/2024 BMI 42.61 kg/m2 08/26/2024 Encounters Encounter Location Date Provider Diagnosis [facility] [address] [place] [address] 05/30/2024 Taylor Perica Muscle cramp, nocturnal R25.2 ; Plantar fascial fibromatosis M72.2 and Achilles tendinitis of left lower extremity M76.[address] [address] 08/26/2024 Taylor Perica Muscle cramp, nocturnal R25.2 ; Plantar fascial fibromatosis M72.2 ; Achilles tendinitis of left lower extremity M76.62 ; Neuritis of left foot G57.92 ; Metatarsalgia, left foot M77.42 ; Pain in left foot M79.672 ; Bursitis of left foot M77.52 ; Calcaneal spur, left foot M77.32 and Primary osteoarthritis of left foot M19.[address] [address] 05/30/[address] [address] 08/19/2024 [address] [place] [address] 08/26/2024 Taylor Perica [facility] [address] [address] 08/31/2024 Leonard Phillips [facility] [address] [address] 10/20/2024 Leonard Alan [facility] [address] [address] 11/29/2024 Leonard Alan [facility] [address] 12/26/2024 [facility] Alan [facility] [address] [facility] Encounter Date Diagnosis (ICD Code) [...] X ray : Foot, right 3V 02/26/2023 [id number] Destruction, 1-14 02/26/2023 31938,[id number] TENDON SHEATH/LIGAMENT 0 04/30/2023 Insurance Providers Payer Name Payer Address Payer Phone Subscriber Number Group Number Insured Name Patient Relationship to Insured Coverage Start Date Coverage End Date [facility] [address] [place] [address] [id number] Silvana Ruiz Self - patient is the insured Medical (General) History Medical History History ICD Code Anxiety Arthritis Back pain Chicken pox Reflux ( GERD) Surgical History Surgery Date(Month/Year) 09/12/08 [place] Plantar Fasciotomy Left ft 3 knee surgery left 06/20/2024
--- OUTSIDE RECORDS SUMMARY | 2025-04-04 16:16 | XMS_ITS | Clinical Summary ---
Author Organization [facility] Address [address] [place] [address] Phone Care Team Providers Care Regulatory Affairs Coordinator Name Role Phone Unavailable Primary Care Provider [...]
--- OUTSIDE RECORDS SUMMARY | 2025-04-04 16:16 | XMS_ITS ---
Author Organization [facility] Address [address] [place] [address] Care Team Providers Care Talent Sourcer Name Role Phone Herman Moeller Primary Care Provider Unav ailable DieterTaylor archuleta Unavailable [phone] Leonard Phillips Unavailable [phone] REASON FOR VISIT FMLA Encounters Encounter Location Date Provider Diagnosis [facility] [address] [place] [address] 01/25/2025 Leonard Phillips Plan Of Treatment No Information Progress Notes * Soha RUIZceDOB:1980 (44 yo F)Acc No.[id number]:01/25/2025 Patient:?RUIZStormSilvana :1980???Age:44 Y???Sex:Female Address:[address] [place] [address], [place] [address] * true * Date:? Generated for Printi ng/Fajanyg/eTransmitting on:?04/04/2025 04:16 PM EDT
--- OUTSIDE RECORDS SUMMARY | 2025-04-04 16:16 | XMS_ITS ---
Author Organization [facility] Address [address] [place] [address] Care Team Providers Care Staff Analyst Name Role Phone Herman Moeller Primary Care Provider Unav ailable DieterTaylor archuleta Unavailable [phone] Leonard Phillips Unavailable [phone] REASON FOR VISIT FMLA Encounters Encounter Location Date Provider Diagnosis [facility] [address] [place] [address] 12/26/2024 Leonard Phillips Plan Of Treatment No Information Progress Notes * Soha RUIZceDOB:1980 (44 yo F)Acc No.[id number]:12/26/2024 Patient:?RUIZSilvana :1980???Age:44 Y???Sex:Female Address:[address] [place] [address], [place] [address] * true * Date:? Generated for Printi ng/Faxing/eTransmitting on:?04/04/2025 04:15 PM EDT
== END 2025-04-04 15:56 | disposition home or self-care (01) ==
LOC: HO.HUSH 15:11
PROVIDERS: PCP Nurse Practitioner Family; Visit Provider Urology
DX: N30.90 Cystitis, unspecified without hematuria (principal); R31.9 Hematuria, unspecified; Z87.440 Personal history of urinary (tract) infections
CPT/HCPCS: 99213

== ENCOUNTER 2025-04-13 08:57 | Outpatient (AMB) | payer OTHER, SELFPAY ==
--- NOTE | 2025-04-13 09:35 | A.OFFVIS_ITS ---
VS Expanded 04/13/25 09:37 04/13/25 10:23 Height 5 ft 6 in 5 ft 6 in Weight 217 lb 13.067 oz 218 lb BMI 35.2 35.2 Intake Visit Reasons: Obesity Allergies No Known Allergies Allergy (Verified 04/13/25 09:03) Environmental Allergy (Unknown, Uncoded 04/13/25 09:03) none Nutrition Presentation Details: Pt presents for MNT f/u for obesity Pt was last seen in 06/2024 for nutrition. Pt reports starting wegovy in November 2024 and has lost 46 lbs since then. Pt reports feeling well, has questions regarding diet related to constipation. Reports keeping physically active at work and including exercise routine at the gym at least 45 minutes 3 times a week keeps track of steps, reports [id number] steps/daily food frequency fruits: not including fish: not including seeds: pumpkin, sunflower nuts: pistachios/walnuts yogurts: not including vegetables: 3 times a week, salad and working trying new vegetables typical meal B:water and sand on whole wheat bread with egg/cheese/yang or protein shake L: Caesar salad with chicken ,water o burger with lettuce dinner:rice/chicken/potatoes snack:cereal with milk BS Monitoring Most Recent Diabetes Results: Cholesterol 112 mg/dL (<200) 03/09/25 HDL Cholesterol 35 mg/dL (>40) L 03/09/25 Triglycerides 49 mg/dL (<150) 03/09/25 Creatinine 0.74 mg/dL (0.5-1.4) 03/09/25 Blood Urea Nitrogen 8 mg/dL (9-16) L 03/09/25 Sodium 141 mmol/L (135-145) 03/09/25 Potassium 3.4 mmol/L (3.3-5.1) 03/09/25 Chloride 109 mmol/L (96-108) H 03/09/25 Carbon Dioxide 26 mmol/L (22-29) 03/09/25 Calcium 8.9 mg/dL (8.4-10.2) 03/09/25 AST 32 U/L (5-31) H 03/09/25 ALT 17 U/L (0-31) 03/09/25 Total Protein 7.2 g/dL (6.5-8.0) 03/09/25 Albumin 3.7 g/dL (3.5-5.0) 03/09/25 PAY-Xgnqfwf-Go.Jeor Equation Height: 5 ft 6 in Weight: 218 lb Resting Metabolic Rate: 1658.11 Calculated Activity Level: Mild Activity Calories Needed to Maintain Weight: 2279.90 Diagnosis Nutrition problem #1: other (low fiber intake ) As related to (etiology) #1: other (lack of knowledge of adequate amount of fiber) As evidenced by (sign/symptom) #1: constipation PFSH Medical History Osteoarthritis of knees, bilateral Chest congestion Cough Left Achilles tendinitis Plantar fasciitis, left Arthritis History of torn meniscus of knee COVID-19 (~05/2020) GERD (gastroesophageal reflux disease) Surgical History History of transurethral resection of bladder tumor (TURBT) Hx of foot surgery History of esophagogastroduodenoscopy (EGD) Previous section (2007) Family History Father Seizure HTN (hypertension) Diabetes No family history of cancer Mother Diabetes HTN (hypertension) S/P triple vessel bypass Daughter Mental health disorder No family history of cancer Social History Housing: Apartment Alcohol intake: current Alcohol intake frequency: holidays/special occasions only Patient Tobacco Use Status: Never used Tobacco e-Cigarette/Vaping Use: Never Used Second Hand Smoke Exposure: No service: No Current occupational status: employed Current occupation: [employer] Current occupational exposures/hazards: Yes Cognitive needs: No Hearing needs: No Vision needs: Yes Assessment & Plan Assessment & Plan (1) Obesity: Code(s): E66.9 - Obesity, unspecified Category: Medical Plan: Wt: 99 Kg ( 04/09 ) Est kcal needs as per MSJ: 2300 (40% carb, 30% protein/fat) Est fluid needs as per 25-30 ml/d: 3000 Est prot per day as per 1 g/kg bw: 100 Recommend fiber intake : 8-10 g per day and gradually increase to 25-28 g per day for women and 35-38 g for men or as tolerated Recommend sodium intake per day : less than 2000 mg Educated patient on: ( R = reviewed V = verbalizes understanding N/R = needs review N/A = not applicable * Food sources of carbohydrate, adequate serving sizes and its role in various health conditions: R V N/R * Differences between complex carbohydrates a simple carbohydrates, role of fiber in diet: R * Lean protein sources of foods: R * Importance of hydration: R * Differences between types of fats and role in diet (mono on saturated fat fatty acids, saturated fatty acids, trans fats): R V N/R * Food sources of sodium in salt and healthy modifications for heart health in kidney health: R V R/V * Vitamins and minerals: R V N/R * Healthy plate method concept: R V N/R * Physical activity: Benefits a precaution: R V N/R * Hypoglycemia protocol (rule of 15): R V N/R * Dietary prevention of Hyperglycemia: R V R/V Patient Instructions: Work on including at least 2 fruits daily (try applesauce and prunes), Work on choosing low fat food options and lean protein foods see 2300 meal plan Coding Level of Care Code Nutr Indiv Subseq (39465) Diagnoses Obesity E66.9 Time Spent (min) 30
[2025-04-13 09:37] VITALS: BMI 35.2
[2025-04-13 10:23] VITALS: BMI 35.2
== END 2025-04-13 10:26 | disposition home or self-care (01) ==
LOC: HO.ENCR 08:58
PROVIDERS: PCP Nurse Practitioner Family; Visit Provider Dietitian, Registered
DX: E66.9 Obesity, unspecified (principal)

== ENCOUNTER 2025-04-13 08:57 | Outpatient (AMB) | payer OTHER, SELFPAY ==
--- NOTE | 2025-04-13 09:00 | A.OFFVIS_ITS ---
Vital Signs 04/13/25 09:02 Height 5 ft 6 in Weight 219 lb 5.759 oz BMI 35.4 BP 106/74 Blood Pressure Location Rt brachial Position Sitting Pulse 86 Pulse Source Pulse Oximeter Pulse Oximetry (%) 97 Oxygen Delivery Method Room Air Intake Visit Reasons: Obesity Intake Note: Patient present today for Obesity follow up. Patient c/o chronic constipation while being on the Wegovy. She states she has tried OTC regimens and states she gets minimal relief. System Controller Required: No Accompanied by: Self / Same As Patient Allergies No Known Allergies Allergy (Verified 04/13/25 09:03) Environmental Allergy (Unknown, Uncoded 04/13/25 09:03) none Medication List - Last Reconciled 04/13/25 by Artie Berry MD medroxyprogesterone 150 mg IM [id number] semaglutide (weight loss) (Wegovy) 1 mg (0.5 mL) subcut QWEEK HPI Comments Details: This is a 45-year-old black female sent to endocrinology for evaluation of obesity. Patient states weight gain of 20 lb increments over . Patient has always been overweight since 1999. She has tried diets of intermittent fasting . . She has met with a steak tenderizer machine here. She has tried weight loss medications OTC, Goes to gym but not lately due to knee arthritis . She is prescribed Wegovy but needs endocrine input There are no symptoms of hypothyroidism. There are no symptoms of [place] syndrome. Has 1 children . No difficulty with fertility. No sx of [place]'s Syndrome . Family hx of Type 2 DM in mother and father. No hx of pancreatis . Currently on Wegovy 1 mg Q weekly. Lost 11 lb in the last month The patient is a 45-year-old female presenting with medication management and follow-up for obesity treatment with Wegovy. She has experienced significant weight loss of approximately 11 pounds while on a 1 mg dose of Wegovy. However, her chronic constipation, present prior to treatment, has worsened. The constipation is characterized by hard stools and is associated with abdominal pain and nausea. The patient has attempted various treatments, including MiraLax, fiber supplements, and stool softeners, with limited relief. The patient engages in dietary management, fasting, and regular exercise, and consults with a steak tenderizer machine to support her weight loss efforts. She expresses concern about escalating the dose of Wegovy due to potential side effects such as increased constipation and nausea. The patient is also apprehensive about the long-term use of the medication and the possibility of weight regain if discontinued. She has shown interest in alternative medications like Zepbound but faces insurance-related obstacles. [facility] Medical History Osteoarthritis of knees, bilateral Chest congestion Cough Left Achilles tendinitis Plantar fasciitis, left Arthritis History of torn meniscus of knee COVID-19 (~05/2020) GERD (gastroesophageal reflux disease) Surgical History History of transurethral resection of bladder tumor (TURBT) Hx of foot surgery History of esophagogastroduodenoscopy (EGD) Previous section (2007) Family History Father Seizure HTN (hypertension) Diabetes No family history of cancer Mother Diabetes HTN (hypertension) S/P triple vessel bypass Daughter Mental health disorder No family history of cancer Social History Housing: Apartment Alcohol intake: current Alcohol intake frequency: holidays/special occasions o nly Patient Tobacco Use Status: Never used Tobacco e-Cigarette/Vaping Use: Never Used Second Hand Smoke Exposure: No service: No Current occupational status: employed Current occupation: [employer] Current occupational exposures/hazards: Yes Cognitive needs: No Hearing needs: No Vision needs: Yes Physical Exam Vital Signs: BMI result Body Mass Index 35.4 Assessment & Plan Assessment & Plan (1) Obesity: Code(s): E66.9 - Obesity, unspecified Category: Medical Plan: This is a 44-year-old black female with a history of obesity. There is no obvious secondary causes of obesity. Currently on Wegovy 1 mg Q weekly 1. Obesity I advised the patient to continue the current dose of Wegovy at 1 mg in light of effective weight loss and potential side effects with higher doses. I emphasized maintaining dietary management and exercise, with ongoing support from a steak tenderizer machine. We discussed potential alternatives like Zepbound, contingent on insurance approval, and addressed concerns about long-term medication use and weight regain. 2. Chronic Constipation The patient should continue current constipation management strategies, including MiraLax and fiber gummies. We discussed the possibility of holding Wegovy for a short period to evaluate symptom improvement. A referral to a merchandise supervisor may be considered if constipation persists, with further evaluation such as colonoscopy. I discussed with the patient the management of obesity using Wegovy, emphasizing the positive weight loss results and the decision to maintain the current dose due to potential side effects with higher doses. We explored alternative medication options like Zepbound, contingent on insurance coverage. I addressed the chronic constipation, recommending continued current treatments and considering a merchandise supervisor referral if symptoms persist. We discussed potential strategies to manage constipation, including holding Wegovy temporarily. I advised on seeking further dietary management support from a steak tenderizer machine. The patient was informed about the importance of monitoring symptoms and maintaining regular follow-ups. - Continue taking Wegovy at 1 mg as instructed. - Maintain dietary management and exercise routines. - Continue using MiraLax and fiber gummies for constipation. - Consider holding Wegovy for one week if constipation worsens and monitor symptoms. - Follow-up a steak tenderizer machine for ongoing dietary support. - Seek medical advice if constipation persists or worsens. The patient had an opportunity to ask questions regarding treatment plan. The patient expressed understanding and agreement with the above treatment plan. . Patient was informed and verbally consented to the use of an ambient scribe for clinic note documentation during this visit. Medications: Changed From semaglutide (weight loss) (Wegovy) administer weeks 9 through 12 of therapy 1 mg (0.5 mL) subcut QWEEK 2 mL 2RF To semaglutide (weight loss) (Wegovy) 1 mg (0.5 mL) subcut QWEEK 2 mL 4RF Coding Level of Care Code Est Pt Level 3 (39092) Diagnoses Obesity E66.9
[2025-04-13 09:02] VITALS: BP 106/74; PULSE 86; O2SAT 97; BMI 35.4
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
== END 2025-04-13 10:27 | disposition home or self-care (01) ==
LOC: HO.ENCR 08:58
PROVIDERS: PCP Nurse Practitioner Family; Visit Provider Internal Medicine Endocrinology, Diabetes & Metabolism
DX: E66.9 Obesity, unspecified (principal)
CPT/HCPCS: 99213

== ENCOUNTER → 2025-04-13 08:57 | Outpatient (BNVA) | payer OTHER, SELFPAY | PROVIDERS: PCP Nurse Practitioner Family; Visit Provider Internal Medicine Endocrinology, Diabetes & Metabolism | DX: E66.9 Obesity, unspecified (principal); K59.09 Other constipation; Z68.35 Body mass index [BMI] 35.0-35.9, adult; Z79.4 Long term (current) use of insulin | CPT/HCPCS: 97803 ==

== ENCOUNTER 2025-04-24 20:24 | Emergency (ER) | payer OTHER, SELFPAY ==
--- NOTE | ~2025-04-24 | US_ITS ---
CLINICAL HISTORY: engorged vein in RLE pain Venous duplex ultrasound right lower extremity Comparison: None Findings: Acute appearing occlusive thrombus involves imaged right anterior-lateral epigastric vein in with the adjacent accentuated. Imaged right common femoral vein and right superficial femoral vein remain patent. Imaged greater saphenous vein is patent. IMPRESSION: 1. Acute occlusive thrombus of the right superficial femoral vein superior right including region and likely epigastric vein. Please consider attention on follow-up to ensure resolution. This document has been electronically signed by: Eloy Martinez MD on 04/25/2025 02:46:53
[2025-04-24 20:28] VITALS: BP 132/107; PULSE 112; RESP 19; TEMP 36.6; O2SAT 98; BMI 35.6
--- NOTE | 2025-04-24 20:32 | ED_ITS ---
HPI - General Adult General Chief complaint: General Medical Stated complaint: pain lower right side Time Seen by Provider: 04/25/25 00:54 Source: patient and old records reviewed Mode of arrival: ambulatory Limitations: no limitations History of Present Illness ED Provider: CHERRY YOUNGBLOOD narrative: 45 yo female wtih PMH of UTI, GERD here with c/o one week of pain in R upper leg with a bulging vein. No CP/SOB. She denies fevers. She has never had this before. She had no precipiting event. Hurts to touch and move. She had no trauma. She denies any recent travel or procedures. She has never had this before. complaint: R leg vein painful Onset (ago): week(s) (1) Location: right and lower extremity Radiation: non-radiation Severity: moderate Quality: aching Pain Consistency: intermittent Relieving factors: rest Exacerbating factors: movement Associated symptoms: denies other symptoms Treatments prior to arrival: none Related Data Home Medications ?Medication ?Instructions ?Recorded ?Confirmed medroxyprogesterone 150 mg/mL 150 mg IM [id number] 01/30/21 04/04/25 intramuscular syringe Previous Rx's ?Medication ?Instructions ?Recorded semaglutide (weight loss) 1 mg/0.5 1 mg (0.5 mL) subcut QWEEK #2 mL 04/13/25 mL subcutaneous pen injector ([employer]) apixaban 5 mg (74 tabs) tablets in See Rx Instructions .Route 04/25/25 a dose pack (Eliquis DVT-PE Treat .COMPLEX #74 ea 30D Start) Allergies Allergy/AdvReac Type Severity Reaction Status Date / Time No Known Allergies Allergy Verified 04/24/25 20:29 Environmental Allergy Unknown none Uncoded 04/24/25 20:29 Review of Systems 2 Review of Systems: Constitutional : No Fever, No Chills ENT/Mouth : No Ear Pain, No Hoarseness, No sore throat Eyes: No Eye Pain, No Swelling, No Redness, No Foreign Body Cardiovascular : No Chest Pain, No SOB, pos vein swelling Respiratory : No Cough, No Dyspnea Gastrointestinal : No Nausea, No Vomiting, No Diarrhea, No abdominal Pain Genitourinary : No Dysuria, No Hematuria Musculoskeletal : positive joint pain, No Myalgias, No Joint Swelling Skin : No Skin lacerations, No rash Neuro : No Weakness, No Numbness, No Loss of Consciousness, No Dizziness, No Headache All other systems reviewed and are negative [facility] Past Medical History Attestation statement: The following information was validated with the patient. Source: old records reviewed Medical History Osteoarthritis of knees, bilateral Chest congestion Cough Left Achilles tendinitis Plantar fasciitis, left Arthritis History of torn meniscus of knee COVID-19 (~05/2020) GERD (gastroesophageal reflux disease) Surgical History History of transurethral resection of bladder tumor (TURBT) Hx of foot surgery History of esophagogastroduodenoscopy (EGD) Previous section (2007) Family History Family History Father Seizure HTN (hypertension) Diabetes No family history of cancer Mother Diabetes HTN (hypertension) S/P triple vessel bypass Daughter Mental health disorder No family history of cancer Social History Social History Housing: Apartment Alcohol intake: current Alcohol intake frequency: holidays/special occasions only Patient Tobacco Use Status: Never used Tobacco e-Cigarette/Vaping Use: Never Used Second Hand Smoke Exposure: No Advance Directives: No Advance Directives Information Provided: No Do you have a plan to hurt others: No Plan service: No Current occupational status: employed Current occupation: [employer] Current occupational exposures/hazards: Yes Cognitive needs: No Hearing needs: No Vision needs: Yes Physical Exam ED Vital Signs: Vital Signs - 24 hr 04/24/25 20:28 04/25/25 00:55 Temperature 98 F 98.0 F Pulse Rate 112 H 82 Respiratory Rate 19 20 Blood Pressure 132/107 H 143/82 H Pulse Oximetry 98 98 Oxygen Delivery Method Room Air Room Air BMI result Body Mass Index 35.6 Appearance: Alert. Oriented X3. No acute distress. Eyes: Pupils equal, round and reactive to light. ENT: Pharynx normal. Neck: Normal inspection. Neck supple. CVS: Normal heart rate and rhythm. Pulses normal. Respiratory: No respiratory distress. Breath sounds normal. Abdomen: Soft and nontender. Skin: Skin warm and dry. Normal skin color. Normal skin turgor. Extremities: No lower extremity edema. R upper thigh ropy thickened cord felt but no overlying erythema and no hernia felt Neuro: Oriented X 3. No motor deficit. No sensory deficit. CN2-12 intact Course Course Course Narrative: RME, this is a rapid medical exam performed by Raymond Gary please refer to primary provider for complete H&P- 45-year-old female presents for evaluation of right lower abdominal pain/inguinal pain. On exam she has a painful mass to the right inguinal region. No overlying skin changes. Plan for labs, urinalysis, will defer advanced imaging to primary ER provider Reevaluation(s) Reevaluation #1: after discussion with radiology and extent of clots and size would recommend DVT therapy Medical Decision Making Medical Decision Making [facility] Narrative: 45 yo female wtih PMH of UTI, GERD here with c/o R groin pain and vein swelling. At this time she is NV intact, she will need labs, US of area - she has no CP/SOB to suggest PE. Possible phlebitis, mass, lymph node. Differential Diagnosis Differential Diagnoses: The differential diagnosis associated with the presentation includes thrombophlebitis, lymph node, mass Admission/Observation Consideration of admission/observation: Escalation of care including admission/observation considered no signs of PE distal NV intact stable for DC Lab Data [facility] Lab Attestation statement: I reviewed the patient's lab results. 04/24/25 20:46 04/24/25 20:46 Labs: Lab Results 04/24/25 04/24/25 Range/Units 20:46 20:55 WBC 9.7 (4.8-10.8) X10*3/uL RBC 4.24 (4.20-5.50) X10*6/uL Hgb 13.0 (12.0-16.0) g/dl Hct 38.5 (37.0-47.0) % MCV 90.8 (80.0-98.0) fL MCH 30.7 (27.0-33.0) pg MCHC 33.8 (31.0-35.0) g/dl RDW 13.5 (11.0-16.0) % Plt Count 258 (160-400) X10*3/uL MPV 9.5 (9.4-12.3) fL Immature Gran % (Auto) 0.3 (0.0-0.4) % Neut % (Auto) 68.5 (45-73) % Lymph % (Auto) 25.4 (20-40) % [place] % (Auto) 4.6 (2-11) % Eos % (Auto) 0.9 (0-4) % Baso % (Auto) 0.3 (0-2) % Lymph # (Auto) 2.5 (1.2-4.9) X10*3/uL [place] # (Auto) 0.4 (0.1-1.2) X10*3/uL Eos # (Auto) 0.1 (0.0-0.4) X10*3/uL Baso # (Auto) 0.0 (0.0-0.2) X10*3/uL Abs Immat Gran (auto) 0.03 (0.00-0.03) X10*3/uL Absolute Neuts (auto) 6.6 (2.0-8.3) x10*3/uL Absolute Nucleated RBC 0.000 (0.0-0.012) X10*3/uL Nucleated RBC % (auto) 0.0 (0.0-0.2) /100WBC Sodium 140 (135-145) mmol/L Potassium 4.1 D (3.3-5.1) mmol/L Chloride 109 H (96-108) mmol/L Carbon Dioxide 23 (22-29) mmol/L Anion Gap 12 (12-20) BUN 11 (9-16) mg/dL Creatinine 0.84 (0.5-1.4) mg/dL Estim Creat Clear Calc 101.9 Estimated GFR > 60 Random Glucose 100 (60-115) mg/dL Lactic Acid 0.8 (0.5-2.0) mmol/L Calcium 9.3 (8.4-10.2) mg/dL Total Bilirubin 0.7 (0.0-1.0) mg/dL AST 24 (5-31) U/L ALT 13 (0-31) U/L Alkaline Phosphatase 67 (39-117) U/L Total Protein 7.0 (6.5-8.0) g/dL Albumin 4.0 (3.5-5.0) g/dL Urine Color Yellow Urine Appearance Clear Urine pH 5.5 (5.0-9.0) Ur Specific [place] >= 1.030 H (1.005-1.025) Urine Protein Trace (Neg-Trace) mg/dL Urine Glucose (UA) Negative (Negative) mg/dL Urine Ketones Trace (Negative) mg/dL Urine Blood Small (1+) H (Negative) Urine Nitrite Negative (Negative) Ur Leukocyte Esterase Small (1+) H (Negative) Urine RBC 6-10 H (0-2) /HPF Urine WBC 11-20 H (0-5) /HPF Ur Squamous Epith Cells 6-10 (0-2) /HPF Urine Bacteria 1+ (None Seen) Hyaline Casts 0-2 (0-2) /LPF Independent Interpretation I performed an independent interpretation of an: Ultrasound (ext clot) Radiology Impression Discussion of test interpretation with radiology: I discussed test interpretation with the radiologist and I have reviewed the radiologist's reading. Radiologist Impression: veins epigastric near abdominal wall - + clot NO DVT noted but given extent discussed with radiologist External Record Review External record reviewed: Outpatient record Prescription Management I considered prescription management with: Other Discharge Plan Discharge Clinical Impression: Blood clot in abdominal vein Phlebitis and thrombophlebitis of femoral vein (deep) (superficial) Qualifiers: Laterality: right Qualified Code(s): I80.11 - Phlebitis and thrombophlebitis of right femoral vein Patient Disposition: Home, Self-Care Instructions: Venous Thromboembolism (ED) Additional Instructions: return for any worsening symptoms or concerns return for chest pain or dyspnea no motrin, aleve, naproxen, aspirin or ibuprofen at this time if you have bleeding you cannot control or you hit your head please seek medical care please call and follow up with your doctor Prescriptions: New [place] DVT-PE Treat 30D Start 5 mg (74 tabs) tablets,dose pack See Rx Instructions .ROUTE .COMPLEX Qty: 74 0RF Rx Instructions: 10mg BID for 7 days then 5mg BID going forwards No Action medroxyprogesterone 150 mg/mL syringe 150 mg IM [id number] Wegovy 1 mg/0.5 mL pen injector 1 mg subcut QWEEK Qty: 2 4RF Print Language: Norwegian
[2025-04-24 20:52] LABS: Basophils Percent Auto 0.3 % (0-2); Eosinophils Absolute Auto 0.1 X10*3/uL (0.0-0.4); Eosinophils Percent Auto 0.9 % (0-4); Hematocrit 38.5 % (37.0-47.0); Imm Gran Abs Auto 0.03 X10*3/uL (0.00-0.03); Imm Gran Pct Auto 0.3 % (0.0-0.4); Lymphocytes Absolute Auto 2.5 X10*3/uL (1.2-4.9); Lymphocytes Percent Auto 25.4 % (20-40); MANUAL DIFF FLAG NO; Mean Corpuscular HGB Conc 33.8 g/dl (31.0-35.0); Mean Corpuscular Hemoglobin 30.7 pg (27.0-33.0); Mean Corpuscular Volume 90.8 fL (80.0-98.0); Mean Platelet Volume 9.5 fL (9.4-12.3); Monocytes Absolute Auto 0.4 X10*3/uL (0.1-1.2); Monocytes Percent Auto 4.6 % (2-11); Neutrophils Absolute Auto 6.6 x10*3/uL (2.0-8.3); Neutrophils Percent Auto 68.5 % (45-73); Platelet Count 258 X10*3/uL (160-400); Red Blood Count 4.24 X10*6/uL (4.20-5.50); Red Cell Distribution Width 13.5 % (11.0-16.0); White Blood Count 9.7 X10*3/uL (4.8-10.8)
[2025-04-24 21:02] LABS: Appearance Urine Clear; Color Urine Yellow; Glucose Urine UA Negative (Negative); Leukocyte Esterase Urine Small (1+) (Negative); Nitrite Urine Negative (Negative); PH 5.5 (5.0-9.0); Specific Gravity - Urine >= 1.030 (1.005-1.025); UMIC TRIGGER UACC YES; Urine Blood Small (1+) (Negative); Urine Ketones Trace mg/dL (Negative); Urine Protein Trace mg/dL (Neg-Trace)
[2025-04-24 21:04] LABS: Bacteria Urine 1+ (None Seen); Hyaline Casts Urine 0-2 /LPF (0-2); UACC Culture Trigger YES
[2025-04-24 21:07] LABS: Alanine Aminotransferase 13 U/L (0-31); Alkaline Phosphatase 67 U/L (39-117); Anion Gap 12 (12-20); Aspartate Amino Transferase 24 U/L (5-31); Bilirubin Total 0.7 mg/dL (0.0-1.0); Blood Urea Nitrogen 11 mg/dL (9-16); Calcium 9.3 mg/dL (8.4-10.2); Carbon Dioxide 23 mmol/L (22-29); Chloride 109 mmol/L (96-108); Creatinine Clr Calc Pharmacy 101.9; Estimated Glomerular Filt Rate > 60; Glucose Random 100 mg/dL (60-115); Lactic Acid 0.8 mmol/L (0.5-2.0); Potassium 4.1 mmol/L (3.3-5.1); Sodium 140 mmol/L (135-145)
[2025-04-25 00:55] VITALS: BP 143/82; PULSE 82; RESP 20; TEMP 36.7; O2SAT 98
[2025-04-25] MEDS: Apixaban 5 MG TABLET 10 MG PO (03:59)
[2025-04-25 04:01] VITALS: BP 132/78; PULSE 80; RESP 16; TEMP 36.1; O2SAT 98
[2025-04-25 04:07] VITALS: BP 132/78; PULSE 80; RESP 16; TEMP 36.1; O2SAT 98
== END 2025-04-25 04:08 | disposition home or self-care (01) ==
PROVIDERS: Physician Assistant; Emergency Provider Emergency Medicine; PCP Nurse Practitioner Family
DX: I80.11 Phlebitis and thrombophlebitis of right femoral vein (principal); I82.890 Acute embolism and thrombosis of other specified veins; M79.604 Pain in right leg; Z79.899 Other long term (current) drug therapy
CPT/HCPCS: 36415; 76882; 80053; 81001; 83605; 85025; 87086; 99283

== ENCOUNTER → 2025-04-25 00:54 | Outpatient (BNV) | payer OTHER, SELFPAY | PROVIDERS: Emergency Provider Emergency Medicine; PCP Nurse Practitioner Family; Visit Provider Radiology Neuroradiology | DX: I82.811 Embolism and thrombosis of superficial veins of right lower extremity (principal) | CPT/HCPCS: 76882 ==

== ENCOUNTER 2025-05-02 16:00 | Outpatient (RCR) | payer OTHER, SELFPAY ==
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
--- NOTE | 2025-05-31 15:03 | MHC.PT.DC ---
[facility] [place] Office [place] Office [place] Office [address] Elvis Atkins [address] [phone] F: [phone] F: [phone] F: [phone] F: [phone] Physical Therapy Discharge Report Diagnosis: This is a 45 yo female presenting to skilled PT with a script for cervical disc disease. Date of Surgery: Date of Evaluation: 04/13/25 Date of Discharge: 05/31/25 Treatments to Date: 4 Cancellations to Date: 0 No Shows to Date: 0 Discharge Status: Achieved Goals Improved Function Independent with HEP Patient Elected to Stop Discharge Summary: 05/02: Pt cancelled her upcoming appointment due to work and will be calling to reschedule and make more appointments. Performed ther-ex in positions that the rest of her body tolerated. TTP at R [place] wit manual. Educated on posture. Patient came to 4 sessions of PT and did not return for further care. Patient's chart was DC'd after 30 days. She has an HEP to continue on her own. Last appointment she did not recall pain. DC to HEP Electronically signed by: Rafia Warner PT Please sign and return to therapist. Thank you for your referral.
== END 2025-05-31 15:03 | disposition home or self-care (01) ==
LOC: HO.PTCHIC 16:00
PROVIDERS: PCP Nurse Practitioner Family; Visit Provider Nurse Practitioner Family
DX: M50.90 Cervical disc disorder, unspecified, unspecified cervical region (principal)
CPT/HCPCS: 97110; 97140; 97161

== ENCOUNTER 2025-05-04 07:17 | Outpatient (AMB) | payer OTHER, SELFPAY ==
--- NOTE | 2025-05-04 07:19 | MHC.PC.OV ---
Intake Visit Reasons: [facility] ER followup, blood clot [place] [phone] Allergies No Known Allergies Allergy (Verified 05/04/25 07:20) Environmental Allergy (Unknown, Uncoded 05/04/25 07:20) none Medication List - Last Reconciled 05/04/25 by JAYCEE [place] apixaban (Eliquis DVT-PE Treat 30D Start) 10mg BID for 7 days then 5mg BID going forwards linaclotide (Linzess) 145 mcg PO DAILY medroxyprogesterone 150 mg IM [id number] semaglutide (weight loss) (Wegovy) 1 mg (0.5 mL) subcut QWEEK Tobacco use date assessed: 03/09/25 Dental Screening Dental Screen Date: 02/17/24 HPI [facility] ER followup, blood clot [place] [phone] HPI Details History of Present Illness The patient is a 45-year-old female presenting with a follow-up for a venous thromboembolism. She visited the emergency room on April 24, 2025, due to a bulging vein in her right upper leg accompanied by severe discomfort and pain. An acute occlusive thrombus was identified in the right epigastric vein, and she was started on Eliquis. Currently, the patient reports significant improvement with no pain or swelling in the affected area. She is advised to continue the anticoagulant therapy for a total duration of four weeks. A consultation with a horticulture/floriculture teacher is planned to determine if further follow-up is necessary. Review of Systems - Vascular: Reports severe pain and discomfort in the right upper leg due to a bulging vein. Denies current pain or swelling. Plan The patient will continue on Eliquis for a total of four weeks to manage the acute occlusive thrombus in the right epigastric vein. A follow-up with a horticulture/floriculture teacher will be arranged to assess the need for further evaluation or treatment. Discussion Notes I discussed with the patient the importance of continuing Eliquis for the full four-week course to ensure proper management of the thrombus. I also explained that a hematology consultation would help determine if additional follow-up is necessary. Patient Instructions - Continue taking Eliquis as prescribed for four weeks. - Attend the follow-up appointment with the horticulture/floriculture teacher as scheduled. [facility] Medical History Osteoarthritis of knees, bilateral Chest congestion Cough Left Achilles tendinitis Plantar fasciitis, left Arthritis History of torn meniscus of knee COVID-19 (~05/2020) GERD (gastroesophageal reflux disease) Surgical History History of transurethral resection of bladder tumor (TURBT) Hx of foot surgery History of esophagogastroduodenoscopy (EGD) Previous section (2007) Family History Father Seizure HTN (hypertension) Diabetes No family history of cancer Mother Diabetes HTN (hypertension) S/P triple vessel bypass Daughter Mental health disorder No family history of cancer Social History Housing: Apartment Alcohol intake: current Alcohol intake frequency: holidays/special occasions only Patient Tobacco Use Status: Never used Tobacco e-Cigarette/Vaping Use: Never Used Second Hand Smoke Exposure: No service: No Current occupational status: employed Current occupation: [employer] Current occupational exposures/hazards: Yes Cognitive needs: No Hearing needs: No Vision needs: Yes Questionnaire Thrive Questionnaire Date Thrive assessed: 03/09/25 I am a: Patient What is your living situation today?: I have a steady place to live Within the past 12 months, did the food you bought not last and you didn't have the money to get more?: Never true Within the past 12 months, did you worry whether your food would run out before you got money to buy more?: Sometimes True Do you have trouble paying for medicines?: No Do you have trouble getting transportation to medical appointments?: No Do you have trouble paying your heating and electricity bill?: I choose not to answer this question Do you have trouble taking care of your child, family member or friend?: No Do you have trouble with day-to-day activities such as bathing, preparing meals, shopping, managing finances, etc.?: No Are you currently unemployed and looking for a job?: No Are you interested in more education?: No Please select the resources that you would like help with: None Currently or been in a relationship where the following occur: No concerns reported THRIVE Score: 1 PA-7 AMB Questionnaire PA-7 Date PA - 7 assessed: 03/09/25 Source: Developed by Drs. Artie Wheeler, Serina Torres, Jase Sandoval and colleagues, with an educational dennise from [employer]. Physical exam (Primary Care) Tobacco/Smoking Status: Tobacco use Status Tobacco use date assessed 03/09/25 03/09/25 07:38 Patient Tobacco Use Status Never used Tobacco 03/09/25 07:38 e-Cigarette/Vaping Use Never Used 03/09/25 07:38 Thrive Assessment: Date of Thrive Assessment Date Thrive assessed 03/09/25 04/06/25 13:07 Currently or been in a relationship where the following occur: No concerns reported Telehealth Telehealth Telehealth Platform: [employer] Location of provider rendering services: practice address Location of patient: address on file Patient Identification confirmed using: Name, : Yes Telehealth method: video Patient verbally consented to treatment: Yes Patient verbally consented to billing insurance company: Yes Patient informed of any privacy concerns related to visit: Yes Minutes spent on Phone/Video with Pt.: 12 Coding Level of Care Code Tele Est Pt Level 3 (59076) Diagnoses Thrombophlebitis I80.9 Venous thromboembolism I82.90 Assessment & Plan Assessment & Plan (1) Thrombophlebitis: Code(s): I80.9 - Phlebitis and thrombophlebitis of unspecified site Category: Medical Plan: . (2) Venous thromboembolism: Code(s): I82.90 - Acute embolism and thrombosis of unspecified vein Category: Medical Plan .
--- OUTSIDE RECORDS SUMMARY | 2025-05-04 07:19 | XMS_ITS | Patient Health Record ---
Author Organization [facility] Address [address] [facility] [address] [place] [address] Care Team Providers Care Commercial Carpet Installer Name Role Phone Herman Moeller Primary Care Provider Unav ailable Taylor Perez Unavailable [phone] AlanLeonard arias Unavailable [phone] Allergies Allergen (clinical drug ingredient) Drug/Non Drug [...] Status Risk Notes Problem Plantar fascial fibromatosis (87968892) Plantar fascial fibromatosis (M72.2) Active confirmed Problem Plantar wart (99969277) Plantar wart (B07.0) Active confirmed Problem 368338267 Neuropathy (G62.9) Active confirmed Problem [id number] Neuritis of righ t foot (G57.91) Active confirmed Problem Neuritis of left foot (G57.92) Active confirmed Problem [id number] 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) Active confirmed Vital Signs Height 5ft 6in in 08/26/2024 Weight 264 lbs 08/26/2024 BMI 42.61 kg/m2 08/26/2024 Encounters Encounter Location Date Provider [facility] [address] [place] [address] 05/30/2024 Taylor Perica Muscle cramp, nocturnal R25.2 ; Plantar fascial fibromatosis M72.2 and Achilles tendinitis of left lower extremity M76.[address] [address] 08/26/2024 Taylor Perica Muscle cramp, nocturnal R25.2 ; Plantar fascial fibromatosis M72.2 ; Achilles tendinitis of left lower extremity M76.62 ; Neuritis of left foot G57.92 ; Metatarsalgia, left foot M77.42 ; Pain in left foot M79.672 ; Bursitis of left foot M77.52 ; Calcaneal spur, left foot M77.32 and Primary osteoarthritis of left foot M19.[address] [address] 05/30/[address] [address] 08/19/2024 [address] [place] [address] 08/26/2024 Taylor Perica [facility] [address] [address] 08/31/2024 Leonard Phillips [facility] [address] [address] 10/20/2024 Leonard Alan [facility] [address] [address] 11/29/2024 Leonard Alan [facility] [address] 12/26/2024 [facility] Alan [facility] [address] [facility]/20[facility] En[facility] Date Diagnosis (ICD Code) Assessment Notes [...] X ray : Foot, right 3V 02/26/2023 [id number] Destruction, 1-14 02/26/2023 [id number] TENDON SHEATH/LIGAMENT 0 04/30/2023 Insurance Providers Payer Name Payer Address Payer Phone Subscriber Number Group Number Insured Name Patient Relationship to Insured Coverage Start Date Coverage End Date [facility] [address] [place] [address] [id number] Silvana Ruiz Self - patient is the insured Medical (General) History Medical History History ICD Code Anxiety Arthritis Back pain Chicken pox Reflux ( GERD) Surgical History Surgery Date(Month/Year) 09/12/08 [place] Plantar Fasciotomy Left ft 3 knee surgery left 06/20/2024
== END 2025-05-04 08:02 | disposition home or self-care (01) ==
LOC: HO.HMCC 07:17
PROVIDERS: PCP Nurse Practitioner Family; Visit Provider Nurse Practitioner Family
DX: I80.9 Phlebitis and thrombophlebitis of unspecified site (principal); I82.90 Acute embolism and thrombosis of unspecified vein

== ENCOUNTER → 2025-05-04 07:17 | Outpatient (BNVA) | payer OTHER, SELFPAY | PROVIDERS: PCP Nurse Practitioner Family; Visit Provider Nurse Practitioner Family ==

== ENCOUNTER 2025-06-12 10:21 | Outpatient (AMB) | payer OTHER, SELFPAY ==
--- OUTSIDE RECORDS SUMMARY | 2025-06-12 11:25 | XMS_ITS | Patient Health Record ---
Author Organization [facility] Address [address] [facility] [place] [address] Care Team Providers Care Marine Surveyor Name Role Phone Herman Moeller Primary Care Provider Unav ailable Taylor Perez Unavailable [phone] AlanLeonard arias Unavailable [phone] Allergies Allergen (clinical drug ingredient) Drug/Non Drug [...] 08/11/2023 Not-Taking Walking Boot/Pneumatic As directed Wear Daily; Duration: Until further notice 08/11/2023 Not-Taking Omeprazole 20 MG 1 capsule 30 minutes before morning meal Orally Once a day Not-Taking Sertraline HCl 50 MG 1 tablet Orally Once a day Not-Taking Feldene 20 MG 1 capsule with food Orally Once a day; Duration: 30 day(s) 08/11/2023 Not-Taking Depo-Provera every 3 [...] Status Risk Notes Problem Plantar fascial fibromatosis (27559239) Plantar fascial fibromatosis (M72.2) Active confirmed Problem Plantar wart (91108047) Plantar wart (B07.0) Active confirmed Problem Neuropathy (153127951) Neuropathy (G62.9) Active confirmed Problem Mononeuropathy of lower limb (614764775) Neuritis of right foot (G57.91) Active confirmed Problem Mononeuropathy of lower limb (896127353) Neuritis of left foot (G57.92) Active confirmed Problem Localized, primary osteoarthritis of the ankle and/or foot (075904805) 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) Active confirmed Vital Signs Height 5ft 6in in 08/26/2024 Weight 264 lbs 08/26/2024 BMI 42.61 kg/m2 08/26/2024 Encounters Encounter Location Date Provider Diagnosis [address] [address] 08/26/2024 Taylor Perez Muscle cramp, nocturnal R25.2 ; Plantar fascial fibromatosis M72.2 ; Achilles tendinitis of left lower extremity M76.62 ; Neuritis of left foot G57.92 ; Metatarsalgia, left foot M77.42 ; Pain in left foot M79.672 ; Bursitis of left foot M77.52 ; Calcaneal spur, left foot M77.32 and Primary osteoarthritis of left foot M19.[address] [address] 08/19/2024 [facility] [address] 08/26/2024 Taylor Perez [address] [address] 08/31/2024 Leonard Phillips [facility] [address] [place] [address] 10/20/2024 Leonard Phillips [facility] [address] [address] 11/29/2024 [facility] [address] [address] 12/26/2024 Leonard Phillips [facility] [address] 01/25/2025 Leonard Phillips Assessments Encounter Date Diagnosis (ICD Code) Assessment Notes Treatment Notes Treatment Clinical Notes Section Notes 08/26/2024 Plantar fascial fibromatosis (ICD-10 - M72.2) [...] X ray : Foot, right 3V 02/26/2023 [id number] Destruction, 1-14 02/26/2023 [id number] TENDON SHEATH/LIGAMENT 0 04/30/2023 Insurance Providers Payer Name Payer Address Payer Phone Subscriber Number Group Number Insured Name Patient Relationship to Insured Coverage Start Date Coverage End Date [facility] [address] [place] [address] [id number] Silvana Ruiz Self - patient is the insured Medical (General) History Medical History History ICD Code Anxiety Arthritis Back pain Chicken pox Reflux ( GERD) Surgical History Surgery Date(Month/Year) 09/12/08 [place] Plantar Fasciotomy Left ft 3 knee surgery left 06/20/2024
--- OUTSIDE RECORDS SUMMARY | 2025-06-12 11:25 | XMS_ITS | Clinical Summary ---
Author Organization [facility] Address [address] [place] [address] Phone Care Team Providers Care Sash Installer Name Role Phone Unavailable Primary Care Provider [...] of 3 - 19+ 3-dose series) 2000 COVID-19 Vaccine (2023- season) 2024 Influenza Vaccines (#1) 2025 HIB Vaccines Completed 07/05/1985 IPV Vaccines Completed [...]
[2025-06-12 11:36] VITALS: BP 112/62; PULSE 92; TEMP 36.9; O2SAT 99; BMI 33.9
--- NOTE | 2025-06-12 11:36 | MHC.OFFWIV ---
Intake Vital Signs 06/12/25 11:36 Height 5 ft 6 in Weight 210 lb BMI 33.9 BP 112/62 Blood Pressure Location Rt brachial Position Sitting Pulse 92 Pulse Source Pulse Oximeter Temp 98.4 F Temp Source Oral Pulse Oximetry (%) 99 Oxygen Delivery Method Room Air Intake Visit Reasons: EP headache, dizziness, ? sinus infection Intake Note: pt presents with sinus headache for a few days, dizziness Patient Tobacco Use Status: Never used Tobacco Allergies No Known Allergies Allergy (Verified 06/12/25 11:40) Environmental Allergy (Unknown, Uncoded 05/04/25 07:20) none Medication List - Last Reconciled 06/12/25 by Leola Gutierrez PA-C linaclotide (Linzess) 145 mcg PO DAILY PRN medroxyprogesterone 150 mg IM [id number] semaglutide (weight loss) (Wegovy) 1.7 mg (0.75 mL) subcut QWEEK Do you need a note to return to daycare/school/sports/work: No HPI HPI Comments History of Present Illness Details History - The patient is a 45-year-old female presenting with sinus congestion, headache, and dizziness. - The headache has persisted throughout the weekend, primarily located in the frontal region and occasionally radiating to the neck and back of the head. - The patient reports associated dizziness, which was noted last night and again this morning, prompting her to avoid driving. - She has been using Tylenol for headache relief, which provides temporary alleviation. - There is no history of ear pain, cough, or sore throat, but she reports phlegm since her last illness. Physical Exam General: Cooperative, healthy appearing, comfortable and no acute distress Orientation/consciousness: Patient oriented x3 Limitations: No limitations Head: Normal to inspection Ears: Hearing grossly normal bilaterally, external ears normal, fluid in the left TM, no infection, scant fluid right TM Nose: Normal external nose present, Normal nares present and No nasal discharge present Face and sinus: Normal facial exam and Yes maxillary sinuses tender bilaterally Mouth: Normal oral and palatal mucosa present and moist mucous membranes Throat: Yes tonsils normal, Yes uvula midline. Posterior oropharynx erythema, no exudates Eyes: Appearance normal, both eyes and all related structures Neck: Normal visual inspection, full ROM Respiratory: Normal respiratory effort, able to speak in complete sentences, no respiratory distress, not tachypneic, no tripod positioning and no use of accessory muscles Skin: No rashes or lesions noted Neuro: Patient oriented x3 Extremities: Normal to inspection and Yes no clubbing, cyanosis or edema PFSH Medical History Osteoarthritis of knees, bilateral Chest congestion Cough Left Achilles tendinitis Plantar fasciitis, left Arthritis History of torn meniscus of knee COVID-19 (~05/2020) GERD (gastroesophageal reflux disease) Surgical History History of transurethral resection of bladder tumor (TURBT) Hx of foot surgery History of esophagogastroduodenoscopy (EGD) Previous section (2007) Family History Father Seizure HTN (hypertension) Diabetes No family history of cancer Mother Diabetes HTN (hypertension) S/P triple vessel bypass Daughter Mental health disorder No family history of cancer Social History Housing: Apartment Alcohol intake: current Alcohol intake frequency: holidays/special occasions only Patient Tobacco Use Status: Never used Tobacco e-Cigarette/Vaping Use: Never Used Second Hand Smoke Exposure: No service: No Current occupational status: employed Current occupation: [employer] Current occupational exposures/hazards: Yes Cognitive needs: No Hearing needs: No Vision needs: Yes Review of Systems Const All systems reviewed & are unremarkable except as noted in HPI and below Physical Exam Vital Signs: Last Vital Signs Temp 98.4 F 06/12/25 11:36 Pulse 92 06/12/25 11:36 BP 112/62 06/12/25 11:36 Pulse Ox 99 06/12/25 11:36 Oxygen Delivery Method Room Air 06/12/25 11:36 BMI result Body Mass Index 33.9 Assessment & Plan Assessment & Plan (1) Sinusitis, acute: Code(s): J01.90 - Acute sinusitis, unspecified Qualifiers: Sinusitis location: maxillary Recurrence: non-recurrent Qualified Code(s): J01.00 - Acute maxillary sinusitis, unspecified Plan: Plan - VSS, pt well appearing and PE remarkable for maxillary sinus tenderness and left TM with fluid but no infection. - Recommend using Flonase or Nasonex to alleviate sinus congestion by facilitating drainage. - Instructed on proper administration technique for nasal spray to ensure effectiveness. - Advised to take a daily allergy pill to help dry up congestion. - Suggested follow-up with primary care physician if symptoms do not improve. Patient was informed and verbally consented to the use of an ambient scribe for clinic note documentation during this visit Coding Level of Care Code Est Pt Level 3 (65202) Diagnoses Acute non-recurrent maxillary sinusitis J01.00 Sinusitis location: maxillary Recurrence: non-recurrent
== END 2025-06-12 12:44 | disposition home or self-care (01) ==
PROVIDERS: PCP Nurse Practitioner Family; Visit Provider Physician Assistant
DX: J01.00 Acute maxillary sinusitis, unspecified (principal)

== ENCOUNTER 2025-06-19 14:25 | Outpatient (AMB) | payer OTHER, SELFPAY ==
--- OUTSIDE RECORDS SUMMARY | 2025-06-19 14:29 | XMS_ITS | Patient Health Record ---
Author Organization [facility] Address [address] [facility] [place] [address] Care Team Providers Care Glass Melt Operator Name Role Phone Herman Moeller Primary Care Provider Unav ailable Taylor Perez Unavailable [phone] AlanLeonard arias Unavailable [phone] Allergies Allergen (clinical drug ingredient) Drug/Non Drug [...] Status Risk Notes Problem Plantar fascial fibromatosis (36632538) Plantar fascial fibromatosis (M72.2) Active confirmed Problem Plantar wart (12455889) Plantar wart (B07.0) Active confirmed Problem Neuropathy (097351846) Neuropathy (G62.9) Active confirmed Problem Mononeuropathy of lower limb (853936560) Neuritis of right foot (G57.91) Active confirmed Problem Mononeuropathy of lower limb (424408723) Neuritis of left foot (G57.92) Active confirmed Problem Localized, primary osteoarthritis of the ankle and/or foot (428570066) 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) Active confirmed Vital Signs Height 5ft 6in in 08/26/2024 Weight 264 lbs 08/26/2024 BMI 42.61 kg/m2 08/26/2024 Encounters Encounter Location Date Provider Diagnosis [address] [address] 08/26/2024 Taylor Perez Muscle cramp, nocturnal R25.2 ; Plantar fascial fibromatosis M72.2 ; Achilles tendinitis of left lower extremity M76.62 ; Neuritis of left foot G57.92 ; Metatarsalgia, left foot M77.42 ; Pain in left foot M79.672 ; Bursitis of left foot M77.52 ; Calcaneal spur, left foot M77.32 and Primary osteoarthritis of left foot M19.[address] [address] 08/19/2024 [facility] [address] 08/26/2024 Taylor Perez [address] [address] 08/31/2024 Leonard Phillips [facility] [address] [place] [address] 10/20/2024 Leonard Phillips [facility] [address] [address] 11/29/2024 [facility] [address] [address] 12/26/2024 Leonard Phillips [facility] [address] 01/25/2025 Leonard Phillips Assessments Encounter Date Diagnosis [...] X ray : Foot, right 3V 02/26/2023 [id number] Destruction, 1-14 02/26/2023 [id number] TENDON SHEATH/LIGAMENT 0 04/30/2023 Insurance Providers Payer Name Payer Address Payer Phone Subscriber Number Group Number Insured Name Patient Relationship to Insured Coverage Start Date Coverage End Date [facility] [address] [facility] [place] [address] [id number] Silvana Ruiz Self - patient is the insured Medical (General) History Medical History History ICD Code Anxiety Arthritis Back pain Chicken pox Reflux ( GERD) Surgical History Surgery Date(Month/Year) 09/12/08 [place] Plantar Fasciotomy Left ft 3 knee surgery left 06/20/2024
--- OUTSIDE RECORDS SUMMARY | 2025-06-19 14:29 | XMS_ITS | Clinical Summary ---
Author Organization [facility] Address [address] [place] [address] Phone Care Team Providers Care Roll Forming Machine Set Up Mechanic Name Role Phone Unavailable Primary Care Provider [...]
[2025-06-19 14:33] VITALS: BMI 33.8
--- NOTE | 2025-06-19 14:33 | A.OFFVIS_ITS ---
VS Expanded 06/19/25 14:33 Height 5 ft 6 in Weight 209 lb 7.026 oz BMI 33.8 Intake Visit Reasons: Obstructive sleep apnea (adult) Allergies No Known Allergies Allergy (Verified 06/12/25 11:40) Environmental Allergy (Unknown, Uncoded 05/04/25 07:20) none Nutrition Presentation Details: Pt present for MNT f/u for obesity Pt reports doing well, working on diet modifications, trying new foods/recipes Water: 40-60 oz water (uses bottle) Fruits : on and off - fish: dislikes vegetables:2x/wk physical activity : 1500 + per day at work protein : 40-100 gprotein/day BS Monitoring Most Recent Diabetes Results: Creatinine, (0.5-1.4) 0.84 mg/dL 04/24/25 BUN, (9-16) 11 mg/dL 04/24/25 Sodium, (135-145) 140 mmol/L 04/24/25 Potassium, (3.3-5.1) 4.1 mmol/L Δ 04/24/25 Chloride, (96-108) 109 mmol/L H 04/24/25 Carbon Dioxide, (22-29) 23 mmol/L 04/24/25 Calcium, (8.4-10.2) 9.3 mg/dL 04/24/25 AST, (5-31) 24 U/L 04/24/25 ALT, (0-31) 13 U/L 04/24/25 Total Protein, (6.5-8.0) 7.0 g/dL 04/24/25 Albumin, (3.5-5.0) 4.0 g/dL 04/24/25 [facility] Medical History Osteoarthritis of knees, bilateral Chest congestion Cough Left Achilles tendinitis Plantar fasciitis, left Arthritis History of torn meniscus of knee COVID-19 (~05/2020) GERD (gastroesophageal reflux disease) Surgical History History of transurethral resection of bladder tumor (TURBT) Hx of foot surgery History of esophagogastroduodenoscopy (EGD) Previous section (2007) Family History Father Seizure HTN (hypertension) Diabetes No family history of cancer Mother Diabetes HTN (hypertension) S/P triple vessel bypass Daughter Mental health disorder No family history of cancer Social History Housing: Apartment Alcohol intake: current Alcohol intake frequency: holidays/special occasions only Patient Tobacco Use Status: Never used Tobacco e-Cigarette/Vaping Use: Never Used Second Hand Smoke Exposure: No service: No Current occupational status: employed Current occupation: [employer] Current occupational exposures/hazards: Yes Cognitive needs: No Hearing needs: No Vision needs: Yes Assessment & Plan Assessment & Plan (1) Obesity: Code(s): E66.9 - Obesity, unspecified Category: Medical Plan: Wt: 99 Kg ( 04/09 ), 95 kg(07/10) Est kcal needs as per MSJ: 2300 (40% carb, 30% protein/fat) Est fluid needs as per 25-30 ml/d: 3000 Est prot per day as per 1 g/kg bw: 100 Recommend fiber intake : 8-10 g per day and gradually increase to 25-28 g per day for women and 35-38 g for men or as tolerated Recommend sodium intake per day : less than 2000 mg Educated patient on: ( R = reviewed V = verbalizes understanding N/R = needs review N/A = not applicable * Food sources of carbohydrate, adequate serving sizes and its role in various health conditions: R * Differences between complex carbohydrates a simple carbohydrates, role of fiber in diet: R * Lean protein sources of foods: R * Importance of hydration: R * Differences between types of fats and role in diet (mono on saturated fat fatty acids, saturated fatty acids, trans fats): R * Food sources of sodium in salt and healthy modifications for heart health in kidney health: R * Vitamins and minerals: R V * Healthy plate method concept: R V * Physical activity: Benefits a precaution: R V * Patient Instructions: Include foods with fiber (sweet potato, applesauce , oats), gradually increasing fiber by 4-6 g, gradually up to 20 -25g or as tolerated Increase water/fluids low in sugar as you include more fiber in your diet Coding Level of Care Code Nutr Indiv Subseq (85892) Diagnoses Obesity E66.9 Time Spent (min) 30
== END 2025-06-19 15:14 | disposition home or self-care (01) ==
LOC: HO.ENCR 14:26
PROVIDERS: PCP Nurse Practitioner Family; Visit Provider Dietitian, Registered
DX: E66.9 Obesity, unspecified (principal)

== ENCOUNTER → 2025-06-19 14:25 | Outpatient (BNVA) | payer OTHER, SELFPAY | PROVIDERS: PCP Nurse Practitioner Family; Visit Provider Dietitian, Registered | DX: Z71.3 Dietary counseling and surveillance (principal); E66.9 Obesity, unspecified | CPT/HCPCS: 97803 ==

== ENCOUNTER 2025-06-20 09:23 | Outpatient (REF) | payer OTHER, SELFPAY ==
--- NOTE | ~2025-06-20 | US_ITS ---
EXAMINATION: US TRIPLEX LOWER EXTREMITY, RIGHT CLINICAL INFORMATION: History venous thrombosis and embolism. COMPARISON: 04/25/2025. TECHNIQUE: Color-flow triplex imaging with spectral analysis and compression Doppler were performed on the right lower extremity. FINDINGS: Respiratory variation, normal compression and augmented flow are noted throughout the right lower extremity. The visualized common femoral vein, superficial femoral vein, profunda femoral vein, popliteal vein and midcalf peroneal and posterior tibial venous segments show no evidence of deep venous thrombosis. There is no Scott's cyst. There is redemonstration of superficial thrombus seen within the superficial epigastric vein, which runs anterior superolateral off a branch of the greater saphenous vein. US/US venous duplex LE RT IMPRESSION: 1. No evidence of deep venous thrombosis involving the right lower extremity. 2. There is redemonstration of similar superficial thrombosis again noted within the superficial epigastric vein. Electronically signed by: Ezra Mcclendon MD 06/20/2025 10:01 AM EDT
--- OUTSIDE RECORDS SUMMARY | 2025-06-20 09:45 | XMS_ITS | Patient Health Record ---
Author Organization [facility] Address [address] [facility] [place] [address] Care Team Providers Care Mental Health Consultant Name Role Phone Herman Moeller Primary Care Provider Unav ailable Taylor Perez Unavailable [phone] AlanLeonard arias Unavailable [phone] Allergies Allergen (clinical drug ingredient) Drug/Non Drug [...] Status Risk Notes Problem Plantar fascial fibromatosis (66342267) Plantar fascial fibromatosis (M72.2) Active confirmed Problem Plantar wart (22225255) Plantar wart (B07.0) Active confirmed Problem Neuropathy (392335939) Neuropathy (G62.9) Active confirmed Problem Mononeuropathy of lower limb (989844491) Neuritis of right foot (G57.91) Active confirmed Problem Mononeuropathy of lower limb (714874997) Neuritis of left foot (G57.92) Active confirmed Problem Localized, primary osteoarthritis of the ankle and/or foot (192352929) 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) Active confirmed Vital Signs Height 5ft 6in in 08/26/2024 Weight 264 lbs 08/26/2024 BMI 42.61 kg/m2 08/26/2024 Encounters Encounter Location Date Provider Diagnosis [address] [address] 08/26/2024 Taylor Perez Muscle cramp, nocturnal R25.2 ; Plantar fascial fibromatosis M72.2 ; Achilles tendinitis of left lower extremity M76.62 ; Neuritis of left foot G57.92 ; Metatarsalgia, left foot M77.42 ; Pain in left foot M79.672 ; Bursitis of left foot M77.52 ; Calcaneal spur, left foot M77.32 and Primary osteoarthritis of left foot M19.[address] [address] 08/19/2024 Leonard [facility] [address] 08/26/2024 Taylor Perez [address] [address] 08/31/2024 Leonard Phillips [facility] [address] [place] [address] 10/20/2024 Leonard Phillips [facility] [address] [address] 11/29/20[facility] [address] [address] 12/26/2024 Leonard Phillips [facility] [address] 01/25/2025 Leonard Phillips Assessments Encounter Date Diagnosis [...] X ray : Foot, right 3V 02/26/2023 [id number] Destruction, 1-14 02/26/2023 [id number] TENDON SHEATH/LIGAMENT 0 04/30/2023 Insurance Providers Payer Name Payer Address Payer Phone Subscriber Number Group Number Insured Name Patient Relationship to Insured Coverage Start Date Coverage End Date [facility] [address] [facility] [place] [address] [id number] Silvana Ruiz Self - patient is the insured Medical (General) History Medical History History ICD Code Anxiety Arthritis Back pain Chicken pox Reflux ( GERD) Surgical History Surgery Date(Month/Year) 09/12/08 [place] Plantar Fasciotomy Left ft 3 knee surgery left 06/20/2024
--- OUTSIDE RECORDS SUMMARY | 2025-06-20 09:45 | XMS_ITS | Clinical Summary ---
Author Organization [facility] Address [address] [place] [address] Phone Care Team Providers Care Financial Assistance Specialist Name Role Phone Unavailable Primary Care Provider [...]
== END 2025-06-20 09:24 | disposition home or self-care (01) ==
LOC: HO.US 09:23
PROVIDERS: PCP Nurse Practitioner Family; Visit Provider Orthopaedic Surgery
DX: Z86.718 Personal history of other venous thrombosis and embolism (principal)
CPT/HCPCS: 93971

== ENCOUNTER → 2025-06-20 09:38 | Outpatient (BNV) | payer OTHER, SELFPAY | PROVIDERS: PCP Nurse Practitioner Family; Visit Provider Radiology Diagnostic Radiology | DX: I82.421 Acute embolism and thrombosis of right iliac vein (principal) | CPT/HCPCS: 93971 ==

== ENCOUNTER 2025-06-30 08:26 | Outpatient (AMB) | payer OTHER, SELFPAY ==
--- OUTSIDE RECORDS SUMMARY | 2025-06-30 08:31 | XMS_ITS | Clinical Summary ---
Author Organization [facility] Address [address] [place] [address] Phone Care Team Providers Care Comic Illustrator Name Role Phone Unavailable Primary Care Provider [...] of 3 - 19+ 3-dose series) 2000 HPV Vaccines (1 - 3-dose SCDM series) 2008 COVID-19 Vaccine (2023- season) 2024 Influenza Vaccines (#1) 2025 HIB Vaccines Completed 07/05/1985 IPV Vaccines Completed 05/12/1986, 03/18, 1981, Additional history exists MMR Vaccines Completed 05/12/1986, 04/15/1983 Hepatitis A Vaccines Aged Out No long [...]
--- OUTSIDE RECORDS SUMMARY | 2025-06-30 08:31 | XMS_ITS | Patient Health Record ---
Author Organization [facility] Address [address] [facility] [place] [address] Care Team Providers Care Welder Explosion Name Role Phone Herman Moeller Primary Care Provider Unav ailable Taylor Perez Unavailable [phone] AlanLeonard arias Unavailable [phone] Allergies Allergen (clinical drug ingredient) Drug/Non Drug [...] Status Risk Notes Problem Plantar fascial fibromatosis (06717290) Plantar fascial fibromatosis (M72.2) Active confirmed Problem Plantar wart (64668584) Plantar wart (B07.0) Active confirmed Problem Neuropathy (368290990) Neuropathy (G62.9) Active confirmed Problem Mononeuropathy of lower limb (445041791) Neuritis of right foot (G57.91) Active confirmed Problem Mononeuropathy of lower limb (411246026) Neuritis of left foot (G57.92) Active confirmed Problem Localized, primary osteoarthritis of the ankle and/or foot (045334411) 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) Active confirmed Vital Signs Height 5ft 6in in 08/26/2024 Weight 264 lbs 08/26/2024 BMI 42.61 kg/m2 08/26/2024 Encounters Encounter Location Date Provider Diagnosis [address] [address] 08/26/2024 Taylor Perez Muscle cramp, nocturnal R25.2 ; Plantar fascial fibromatosis M72.2 ; Achilles tendinitis of left lower extremity M76.62 ; Neuritis of left foot G57.92 ; Metatarsalgia, left foot M77.42 ; Pain in left foot M79.672 ; Bursitis of left foot M77.52 ; Calcaneal spur, left foot M77.32 and Primary osteoarthritis of left foot M19.[address] [address] 08/19/2024 [facility] [address] 08/26/2024 Taylor Perez [address] [address] 08/31/2024 Leonard Phillips [facility] [address] [place] [address] 10/20/2024 Leonard Phillips [facility] [address] [address] 11/29/[facility] [address] [address] 12/26/2024 Leonard Phillips [facility] [address] 01/25/2025 Leonard Phillips Assessments Encounter Date Diagnosis [...] X ray : Foot, right 3V 02/26/2023 [id number] Destruction, 1-14 02/26/2023 [id number] TENDON SHEATH/LIGAMENT 0 04/30/2023 Insurance Providers Payer Name Payer Address Payer Phone Subscriber Number Group Number Insured Name Patient Relationship to Insured Coverage Start Date Coverage End Date [facility] [address] [place] [address] [id number] Silvana Riuz Self - patient is the insured Medical (General) History Medical History History ICD Code Anxiety Arthritis Back pain Chicken pox Reflux ( GERD) Surgical History Surgery Date(Month/Year) 09/12/08 [place] Plantar Fasciotomy Left ft 3 knee surgery left 06/20/2024
[2025-06-30 08:32] VITALS: BP 116/68; PULSE 100; TEMP 37.1; O2SAT 98; BMI 35.0
--- NOTE | 2025-06-30 08:32 | AM.OFFWIN_ITS ---
Intake Vital Signs 06/30/25 08:32 Height 5 ft 6 in Weight 217 lb BMI 35.0 BP 116/68 Blood Pressure Location Lt brachial Position Sitting Pulse 100 Pulse Source Pulse Oximeter Temp 98.8 F Temp Source Oral Pulse Oximetry (%) 98 Oxygen Delivery Method Room Air Intake Visit Reasons: EP-blood clot in groin Patient Tobacco Use Status: Never used Tobacco Patient Resource Specialist Required: No Is last menstrual period known: No Post menopausal: No Patient : No Allergies No Known Allergies Allergy (Verified 06/30/25 08:36) Environmental Allergy (Unknown, Uncoded 05/04/25 07:20) none HPI HPI Comments History of Present Illness Details This is a 45-year-old female with a recent history of superficial thrombosis in a superficial epigastric vein presenting for re-evaluation of her symptoms. Patient was prescribed Eliquis which she states she had difficulty being compliant with but discontinued last week in preparation for right knee meniscus surgery that she had performed on June 26. Patient states that she continues to have discomfort at the site of her superficial thrombosis. Patient denies having any fevers, chills, pain in her right lower leg, chest pain or shortness of breath. [facility] Medical History Osteoarthritis of knees, bilateral Chest congestion Cough Left Achilles tendinitis Plantar fasciitis, left Arthritis History of torn meniscus of knee COVID-19 (~05/2020) GERD (gastroesophageal reflux disease) Surgical History History of transurethral resection of bladder tumor (TURBT) Hx of foot surgery History of esophagogastroduodenoscopy (EGD) Previous section (2007) Family History Father Seizure HTN (hypertension) Diabetes No family history of cancer Mother Diabetes HTN (hypertension) S/P triple vessel bypass Daughter Mental health disorder No family history of cancer Social History Housing: Apartment Alcohol intake: current Alcohol intake frequency: holidays/special occasions only Patient Tobacco Use Status: Never used Tobacco e-Cigarette/Vaping Use: Never Used Second Hand Smoke Exposure: No Patient : No service: No Current occupational status: employed Current occupation: [employer] Current occupational exposures/hazards: Yes Cognitive needs: No Hearing needs: No Vision needs: Yes Review of Systems Const All systems reviewed & are unremarkable except as noted in HPI and below Denies chills, Denies fatigue and Denies fever(s) Card Reports no additional complaints, Denies chest pain, Denies pedal edema, Denies edema, Denies dyspnea and Denies dyspnea on exertion Resp Denies cough, Denies hemoptysis, Denies dyspnea and Denies dyspnea on exertion GI Reports abdominal pain (right lower pain) Musc Reports no additional complaints Skin/Breast Reports system reviewed and no additional complaints, except as documented Neuro Reports no additional complaints Endo Denies fatigue Physical Exam Vital Signs: Last Vital Signs Temp 98.8 F 06/30/25 08:32 Pulse 100 06/30/25 08:32 BP 116/68 06/30/25 08:32 Pulse Ox 98 06/30/25 08:32 Oxygen Delivery Method Room Air 06/30/25 08:32 BMI result Body Mass Index 35.0 HR 88bpm on reevaluation. Const General: cooperative, comfortable, no acute distress, well developed, alert, awake and Physically active; No acute distress Nutritional Appearance: overweight Orientation/consciousness: patient oriented x3 Limitations: no limitations Resp Effort & Inspection: normal respiratory effort, able to speak in complete se ntences, no audible wheezes and no cough Auscultation: clear to auscultation bilaterally Cardio Rate: regular rate Rhythm: regular rhythm GI Inspection: Yes normal to inspection, No abdominal wall ecchymosis, No Abdominal wall edema and No distended Palpation (GI): Soft to palpation, Tenderness to palpation present (GI) (RLQ, right inguinal discomfort without guarding) and no guarding Auscultation: normal bowel sounds Skin Other: Two sutures intact along surgical line of right knee without erythema, edema or exudates. General skin exam: no rashes or lesions noted Lesions: no lesions Neuro General: patient oriented x3 Extrem Other: No right calf pain, passive ROM right knee intact Psych Appearance: grossly normal Mental Status: mental status grossly normal Insight: Good insight present (Psych) Judgement: Good judgement present (Psych) Assessment & Plan Assessment & Plan (1) Thrombophlebitis: Comment: Patient's most recent ultrasound evaluation is reviewed which reveals superficial thrombosis of the superficial epigastric vein. Patient will be discharged home and instructed to continue the Eliquis twice daily as previously prescribed and follow up with Hematology as an outpatient. Code(s): I80.9 - Phlebitis and thrombophlebitis of unspecified site Plan: Eliquis twice daily as previously prescribed, Hematology as an outpatient. Orders: Referrals Hematology & Oncology Referral I80.9 - Phlebitis and thrombophlebitis of unspecified site, I82.90 - Acute embolism and thrombosis of unspecified vein Coding Level of Care Code Est Pt Level 4 (31500) Diagnoses Thrombophlebitis I80.9 Time Spent (min) 20
== END 2025-06-30 08:57 | disposition home or self-care (01) ==
PROVIDERS: PCP Nurse Practitioner Family; Visit Provider Physician Assistant
DX: I80.9 Phlebitis and thrombophlebitis of unspecified site (principal)

== ENCOUNTER 2025-08-02 15:36 | Outpatient (AMB) | payer OTHER, SELFPAY ==
--- NOTE | 2025-08-02 15:38 | MHC.OFFVIS ---
Vital Signs 08/02/25 15:43 Height 5 ft 6 in Weight 214 lb BMI 34.5 BP 118/74 Blood Pressure Location Rt brachial Position Sitting Pulse 82 Pulse Source Pulse Oximeter Pulse Oximetry (%) 98 Oxygen Delivery Method Room Air Intake Visit Reasons: Chronic idiopathic constipation Intake Note: Returning pt for initial colonoscopy screening + repeat egd. [facility] february Long in 2020. CC: Pt denies any new GI sx or concerns at this time. Pt states her GERD has been well controlled with diet for some time and only takes linzess PRN if not having consistent BMs. 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 She has been feeling better since the EGD. She will have recurring sx every now and then and she admits she tends to forget to take her PPI's I'm not very good with pills. She has been having less acid brash lately, but she still has occasionally stomach upset. She NEVER had stomach problems until she was dx'ed with COVID, so this may be a factor. After explained to her why we want twice a day dosing and that her stomach appears to be quite irritated to the point where we may be concerned about stomach cancer she says that now that she understands the importance of it she will make sure she takes twice a day. Medications: Refilled: [id number] mg PO BID 60 tabs 4RF (2) Chronic idiopathic constipation: Code(s): K59.04 - Chronic idiopathic constipation Category: Medical (3) Chronic gastritis: Comment: No H pylori on 09/2020 scope Code(s): K29.50 - Unspecified chronic gastritis without bleeding Category: Medical Medications: Refilled: [id number] mg PO BID 60 tabs 4RF TODAY'S VISIT She is not in favor of rescheduling the EGD because she would have to pay a $600 bill. She says I will need to find another place to have this done. She was scheduled for a repeat, but she cancelled it. I recommend that she make arrangements with our billing dept to make this easier. She also COULD ask her PCP to refer her to [facility], as she works there and we may be out of pocket. She is doing fairly well, she only has a funny feeling in her stomach when she is hungry - not pain but not comfortable. It will be better if she eats something or drink a big glass of water. TODAY'S VISIT: Patient is here today to discuss going for colonoscopy. Patient reports that she has been doing fairly well. Patient is trying to control acid reflux with diet. Currently is not taking any PPI. Patient is taking Zepbound for weight loss and reports that she has been doing well. Denies trouble with anesthesia in the past. In no history of sleep apnea. She is not on any anticoagulation medication. Patient denies any cardiac or respiratory symptoms. Reports to be feeling fairly well. Patient is taking that found on Saturdays. There is a opening for colonoscopy on the and patient is agreeing to go for it. We will discuss prep during this visit. [facility] Medical History (Updated 08/14/25 @ 20:57 by ZACHERY Garcia-) Osteoarthritis of knees, bilateral Chest congestion Cough Left Achilles tendinitis Plantar fasciitis, left Arthritis History of torn meniscus of knee COVID-19 (~05/2020) GERD (gastroesophageal reflux disease) Surgical History History of colonoscopy H/O lateral meniscus repair of right knee History of transurethral resection of bladder tumor (TURBT) Hx of foot surgery History of esophagogastroduodenoscopy (EGD) Previous section (2007) Family History Father Seizure HTN (hypertension) Diabetes No family history of cancer Mother Diabetes HTN (hypertension) S/P triple vessel bypass Daughter Mental health disorder No family history of cancer Social History Housing: Apartment Alcohol intake: current Alcohol intake frequency: holidays/special occasions only Patient Tobacco Use Status: Never used Tobacco e-Cigarette/Vaping Use: Never Used Second Hand Smoke Exposure: No service: No Current occupational status: employed Current occupation: [employer] Current occupational exposures/hazards: Yes Cognitive needs: No Hearing needs: No Vision needs: Yes Review of Systems Const Denies weight gain and Denies weight loss ENT Reports no additional complaints, Denies dysphagia and Denies odynophagia Card Reports no additional complaints Resp Reports no additional complaints GI Denies abdominal pain, Denies belching, Denies melena, Denies bloating, Denies change in bowel habits, Reports constipation, Denies dysphagia, Denies excessive flatus, Denies dyspepsia, Denies heartburn, Denies diarrhea, Denies loose stools, Denies nausea, Denies odynophagia and Denies vomiting Reports no additional complaints Musc Reports no additional complaints Neuro Reports no additional complaints Psych Reports no additional complaints Endo Reports no additional complaints Physical Exam Vital Signs: Last Vital Signs Pulse 82 08/02/25 15:43 BP 118/74 08/02/25 15:43 Pulse Ox 98 08/02/25 15:43 Oxygen Delivery Method Room Air 08/02/25 15:43 BMI result Body Mass Index 34.5 Const General: healthy appearing, no acute distress and well developed Nutritional Appearance: well nourished Orientation/consciousness: patient oriented x3 Resp Effort & Inspection: normal respiratory effort, able to speak in complete sentences, no tracheal deviation and symmetric chest movement Auscultation: clear to auscultation bilaterally Cardio Rate: regular rate GI Inspection: Yes normal to inspection and No distended Palpation (GI): Soft to palpation, not firm, nontender and No hepatosplenomegaly present Auscultation: normal bowel sounds General: Yes no CVA tenderness Back/Spine/Pelvis Back: no CVA tenderness Skin General skin exam: elasticity normal, turgor normal and dry skin Neuro General: patient oriented x3 Psych Appearance: grossly normal Mental Status: mental status grossly normal Assessment & Plan Assessment & Plan (1) GERD (gastroesophageal reflux disease): Code(s): K21.9 - Gastro-esophageal reflux disease without esophagitis Category: Medical Qualifiers: Esophagitis presence: esophagitis presence not specified Qualified Code(s): K21.9 - Gastro-esophageal reflux disease without esophagitis (2) Chronic idiopathic constipation: Code(s): K59.04 - Chronic idiopathic constipation Category: Medical (3) Screen for colon cancer: Code(s): Z12.11 - Encounter for screening for malignant neoplasm of colon Plan GERD well controlled. Patient still is constipated. Reports that she takes Linzess as needed, however due to her jaw she is unable to take it when she is working. Patient will be started on Motegrity hopefully that will help with bowel movements. Patient will hold her dose of Zepbound on Thursday and she will be schedule for colonoscopy for next . What to expect before during and after procedure discussed with patient. Stressed the importance of good bowel prep and clear liquid diet. Patient is agreeable to current plan of care and verbalizes understanding of instructions. She was given the opportunity to ask questions and all questions answered. Thank you for allowing me to participate in her care Medications: New prucalopride (Motegrity) 2 mg PO DAILY 30 tabs 2RF K59.04 - Chronic idiopathic constipation polyethylene glycol 3350 (Miralax) As directed by gastroenterology department at [facility] 238 grams PO ONCE 238 grams 0RF Z12.11 - Encounter for screening for malignant neoplasm of colon bisacodyl (Dulcolax (bisacodyl)) take 4 tabs at noon the day before your colonoscopy 20 mg (4 x 5 mg) PO ONCE 4 tabs 0RF constipation 1 day Z12.11 - Encounter for screening for malignant neoplasm of colon Coding Level of Care Code New Pt Level 3 (74910) Diagnoses Gastroesophageal reflux disease, unspecified whether esophagitis present K21.9 Esophagitis presence: esophagitis presence not specified Chronic idiopathic constipation K59.04 Screen for colon cancer Z12.11 Time Spent (min) 40 Comment 30 minutes spent with patient and additional 10 minutes spent reviewing her records
[2025-08-02 15:43] VITALS: BP 118/74; PULSE 82; O2SAT 98; BMI 34.5
--- OUTSIDE RECORDS SUMMARY | 2025-08-02 18:56 | XMS_ITS | Clinical Summary ---
Author Organization [facility] Address [address] [place] [address] Phone Care Team Providers Care Procurement Coordinator Name Role Phone Unavailable Primary Care [...] Vaccines (1 - 3-dose SCDM series) 2008 Influenza Vaccines (#1) 2025 COVID-19 Vaccine ( season) 2025 HIB Vaccines Completed 07/05/1985 IPV Vaccines [...]
--- OUTSIDE RECORDS SUMMARY | 2025-08-02 18:56 | XMS_ITS | Patient Health Record ---
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 Name Role Phone Herman Moeller Primary Care Provider Unav ailable Taylor Perez Unavailable [phone] AlanLeonard arias Unavailable [phone] Allergies Allergen (clinical drug ingredient) Drug/Non Drug [...] Status Risk Notes Problem Plantar fascial fibromatosis (25319555) Plantar fascial fibromatosis (M72.2) Active confirmed Problem Plantar wart (52989677) Plantar wart (B07.0) Active confirmed Problem Neuropathy (334567388) Neuropathy (G62.9) Active confirmed Problem Mononeuropathy of lower limb (454087716) Neuritis of right foot (G57.91) Active confirmed Problem Mononeuropathy of lower limb (255789009) Neuritis of left foot (G57.92) Active confirmed Problem Localized, primary osteoarthritis of the ankle and/or foot (976187202) 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) Active confirmed Vital Signs Height 5ft 6in in 08/26/2024 Weight 264 lbs 08/26/2024 BMI 42.61 kg/m2 08/26/2024 Encounters Encounter Location Date Provider Diagnosis [address] [address] 08/26/2024 Taylor Perez Muscle cramp, nocturnal R25.2 ; Plantar fascial fibromatosis M72.2 ; Achilles tendinitis of left lower extremity M76.62 ; Neuritis of left foot G57.92 ; Metatarsalgia, left foot M77.42 ; Pain in left foot M79.672 ; Bursitis of left foot M77.52 ; Calcaneal spur, left foot M77.32 and Primary osteoarthritis of left foot M19.[address] [address] 08/19/2024 [facility] [address] 08/26/2024 Taylor Perez [address] [address] 08/31/2024 Leonard Phillips [facility] [address] [place] [address] 10/20/2024 Leonard Phillips [facility] [address] [address] 11/29/2024 [facility] [address] [address] 12/26/2024 Leonard Phillips [facility] [address] 01/25/2025 Leonard Phillips Assessments Encounter Date Diagnosis [...] X ray : Foot, right 3V 02/26/2023 [id number] Destruction, 1-14 02/26/2023 [id number] TENDON SHEATH/LIGAMENT 0 04/30/2023 Insurance Providers Payer Name Payer Address Payer Phone Subscriber Number Group Number Insured Name Patient Relationship to Insured Coverage Start Date Coverage End Date [facility] [address] [facility] [place] [address] [id number] Silvana Ruiz Self - patient is the insured Medical (General) History Medical History History ICD Code Anxiety Arthritis Back pain Chicken pox Reflux ( GERD) Surgical History Surgery Date(Month/Year) 09/12/08 [place] Plantar Fasciotomy Left ft 3 knee surgery left 06/20/2024
== END 2025-08-02 16:43 | disposition home or self-care (01) ==
LOC: HO.HGI 15:36
PROVIDERS: PCP Nurse Practitioner Family; Visit Provider Nurse Practitioner Family
DX: Z01.818 Encounter for other preprocedural examination (principal); Z12.11 Encounter for screening for malignant neoplasm of colon; K59.04 Chronic idiopathic constipation; K21.9 Gastro-esophageal reflux disease without esophagitis
CPT/HCPCS: 99203

== ENCOUNTER 2025-08-10 10:31 | Day surgery (SDC) | payer OTHER, SELFPAY ==
--- NOTE | 2025-08-08 11:48 | HO.ANESPROP2 ---
Documented by User: Noreen Mccartney NP 08/08/25 11:52 HPI - Anesthesia Eval Consult details Narrative: 45 yr old female for colonoscopy Seen at [facility] 04/2025, dx with thrombophlebitis of right femoral vein; she was started on eliquis due to extent; follow up US done 06/2025 showed persistent thrombophlebitis, but no DVT Anesthesia Pre-Procedure Meds Is the patient on any of the following meds?: GLP1/DPP4 PMFSH Active Problems Active Problems: All Active Problems Sinusitis, acute (Acute) Venous thromboembolism (Acute) Thrombophlebitis (Acute) Atypical mole (Acute) Cervical neck pain with evidence of disc disease (Acute) Constipation (Acute) Chest congestion (Acute) Cough (Acute) History of recurrent UTIs (Acute) Hematuria (Acute) Left chest pressure (Acute) URI, acute (Acute) Foot pain, bilateral (Acute) Acute viral pharyngitis (Acute) Recurrent UTI (Acute) Cystitis (Acute) Lesion of bladder (Acute) Poor nutrition (Acute) Obesity (Acute) Microscopic hematuria (Acute) Pre-op evaluation (Acute) Anxiety about dying (Acute) Loss of hearing (Acute) Physical exam (Acute) Systolic murmur (Acute) Tachycardia (Acute) Dysuria (Acute) Family history of heart disease (Acute) Palpitations (Acute) Upper respiratory tract infection (Acute) Foot pain, left (Acute) Chronic gastritis (Acute) Chronic idiopathic constipation (Acute) GERD (gastroesophageal reflux disease) (Acute) Past Medical History Medical History Osteoarthritis of knees, bilateral Chest congestion Cough Left Achilles tendinitis Plantar fasciitis, left Arthritis History of torn meniscus of knee COVID-19 (~05/2020) GERD (gastroesophageal reflux disease) Family History Family History Father Seizure HTN (hypertension) Diabetes No family history of cancer Mother Diabetes HTN (hypertension) S/P triple vessel bypass Daughter Mental health disorder No family history of cancer Family history of problems with anesthesia: No Surgical History Surgical History H/O lateral meniscus repair of right knee History of transurethral resection of bladder tumor (TURBT) Hx of foot surgery History of esophagogastroduodenoscopy (EGD) Previous section (2007) History of Problems with Anesthesia: No Social History Social History Housing: Apartment Alcohol intake: current Alcohol intake frequency: holidays/special occasions only Patient Tobacco Use Status: Never used Tobacco e-Cigarette/Vaping Use: Never Used Second Hand Smoke Exposure: No Use of substances other than those prescribed or required for medical reasons: No Advance Directives: No Advance Directives Information Provided: Yes service: No Current occupational status: employed Current occupation: [employer] Current occupational exposures/hazards: Yes Cognitive needs: No Hearing needs: No Vision needs: Yes Meds Allergies Allergy/AdvReac Type Severity Reaction Status Date / Time No Known Allergies Allergy Verified 08/02/25 15:43 Environmental Allergy Unknown none Uncoded 08/02/25 15:43 Home Medications ?Medication ?Instructions ?Recorded ?Confirmed ?Last Taken ?Type medroxyprogesterone 150 mg/mL 150 mg IM [id number] 01/30/21 06/12/25 Unknown History intramuscular syringe linaclotide 145 mcg capsule 145 mcg PO DAILY PRN 06/12/25 06/12/25 Unknown History (Linzess) Exam Narrative Narrative: Extremity US 06/2025 IMPRESSION: 1. No evidence of deep venous thrombosis involving the right lower extremity. 2. There is redemonstration of similar superficial thrombosis again noted within the superficial epigastric vein. Extremity US 04/2025 IMPRESSION: 1. Acute occlusive thrombus of the right superficial femoral vein superior right including region and likely epigastric vein. Please consider attention on follow-up to ensure resolution. Assessment and Plan Final Anesthetic Review Family History of Problems with Anesthesia: No History of Problems with Anesthesia: No Documented by User: Mari Langford MD 08/10/25 11:48 [facility] Past Medical History Medical History Osteoarthritis of knees, bilateral Chest congestion Cough Left Achilles tendinitis Plantar fasciitis, left Arthritis History of torn meniscus of knee COVID-19 (~05/2020) GERD (gastroesophageal reflux disease) Family History Family History Father Seizure HTN (hypertension) Diabetes No family history of cancer Mother Diabetes HTN (hypertension) S/P triple vessel bypass Daughter Mental health disorder No family history of cancer Surgical History Surgical History H/O lateral meniscus repair of right knee History of transurethral resection of bladder tumor (TURBT) Hx of foot surgery History of esophagogastroduodenoscopy (EGD) Previous section (2007) Social History Social History Housing: Apartment Alcohol intake: current Alcohol intake frequency: holidays/special occasions only Patient Tobacco Use Status: Never used Tobacco e-Cigarette/Vaping Use: Never Used Second Hand Smoke Exposure: No Use of substances other than those prescribed or required for medical reasons: No Advance Directives: No Advance Directives Information Provided: Yes service: No Current occupational status: employed Current occupation: [employer] Current occupational exposures/hazards: Yes Cognitive needs: No Hearing needs: No Vision needs: Yes Meds Allergies Allergy/AdvReac Type Severity Reaction Status Date / Time No Known Allergies Allergy Verified 08/02/25 15:43 Environmental Allergy Unknown none Uncoded 08/02/25 15:43 Home Medications ?Medication ?Instructions ?Recorded ?Confirmed ?Last Taken ?Type medroxyprogesterone 150 mg/mL 150 mg IM [id number] 01/30/21 06/12/25 Unknown History intramuscular syringe linaclotide 145 mcg capsule 145 mcg PO DAILY PRN 06/12/25 06/12/25 Unknown History (Perlazessam) Exam Airway Mallampati Class: II TM Dist: >3cm Neck ROM: Full Heart: rrr Lungs: cta Assessment and Plan Assessment Anesthesia Assessment: Anesthesia Plan Discussed and Chart Reviewed Final Anesthetic Review NPO: Yes ASA Class: II Final Preanesthetic Review: No Changes in Pt Med Stat, Meds/Allgs Chart Reviewed, Consent Obtained/Reviewed and Anes Risks/Benef Reviewed Patient Risk: Intermediate (obesity) Procedure Risk: Low Anesthetic Plan Anesthetic Plan: MAC: Disposition: Standard PACU
--- OUTSIDE RECORDS SUMMARY | 2025-08-08 12:04 | XMS_ITS | Patient Health Record ---
Author Organization [facility] Address [address] 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 Name Role Phone Herman Moeller Primary Care Provider Unav ailable Tyalor Perez Unavailable [phone] AlanLeonard arias Unavailable [phone] Allergies Allergen (clinical drug ingredient) Drug/Non Drug [...] Status Risk Notes Problem Plantar fascial fibromatosis (63014400) Plantar fascial fibromatosis (M72.2) Active confirmed Problem Plantar wart (14768457) Plantar wart (B07.0) Active confirmed Problem Neuropathy (847043135) Neuropathy (G62.9) Active confirmed Problem Mononeuropathy of lower limb (371491676) Neuritis of right foot (G57.91) Active confirmed Problem Mononeuropathy of lower limb (981410117) Neuritis of left foot (G57.92) Active confirmed Problem Localized, primary osteoarthritis of the ankle and/or foot (165663812) 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) Active confirmed Vital Signs Height 5ft 6in in 08/26/2024 Weight 264 lbs 08/26/2024 BMI 42.61 kg/m2 08/26/2024 Encounters Encounter Location Date Provider Diagnosis [address] [address] 08/26/2024 Taylor Perez Muscle cramp, nocturnal R25.2 ; Plantar fascial fibromatosis M72.2 ; Achilles tendinitis of left lower extremity M76.62 ; Neuritis of left foot G57.92 ; Metatarsalgia, left foot M77.42 ; Pain in left foot M79.672 ; Bursitis of left foot M77.52 ; Calcaneal spur, left foot M77.32 and Primary osteoarthritis of left foot M19.[address] [address] 08/19/2024 [facility] [address] 08/26/2024 Taylor Perez [address] [address] 08/31/2024 Leonard Phillips [facility] [address] [place] [address] 10/20/2024 Leonard Phillips [facility] [address] [address] 11/29/2024 [facility] [address] [address] 12/26/2024 Leonard Phillips [facility] [address] 01/25/2025 Leonard Phillips Assessments Encounter Date Diagnosis [...] X ray : Foot, right 3V 02/26/2023 [id number] Destruction, 1-14 02/26/2023 [id number] TENDON SHEATH/LIGAMENT 0 04/30/2023 Insurance Providers Payer Name Payer Address Payer Phone Subscriber Number Group Number Insured Name Patient Relationship to Insured Coverage Start Date Coverage End Date [facility] [address] [place] [address] [id number] Silvana Ruiz Self - patient is the insured Medical (General) History Medical History History ICD Code Anxiety Arthritis Back pain Chicken pox Reflux ( GERD) Surgical History Surgery Date(Month/Year) 09/12/08 [place] Plantar Fasciotomy Left ft 3 knee surgery left 06/20/2024
--- OUTSIDE RECORDS SUMMARY | 2025-08-08 12:04 | XMS_ITS | Clinical Summary ---
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
[2025-08-10 10:44] VITALS: BMI 35.8
[2025-08-10] MEDS: Lactated Ringers 1,000 ML 100 ML IVCONT (10:53)
--- NOTE | 2025-08-10 10:54 | MHC.SHP ---
Pre-Procedural Eval Section A - 24 Hr Update-Section A only Date of Service: 08/10/25 The patient is an INPATIENT: No The patient has been examined within 24 hours of the surgical procedure. The History & Physical has been completed within 30 days and I have reviewed it.: Yes Section B - Complete if H&P > 30 days Chief Complaint: Chronic idiopathic constipation Allergies: Allergies Allergy/AdvReac Type Severity Reaction Status Date / Time No Known Allergies Allergy Verified 08/02/25 15:43 Environmental Allergy Unknown none Uncoded 08/02/25 15:43 Plan Diagnosis/Plan: Unchanged I have reviewed the history and physical and performed a pertinent physical examination on my patient. No changes have occurred unless specified. Time Spent With Patient Time: Total time managing care of this patient today ____ minutes.
[2025-08-10 10:56] LABS: UPreg QC Valid YES
[2025-08-10 11:00] VITALS: BP 121/77; PULSE 79; RESP 12; TEMP 36.6; O2SAT 98
[2025-08-10 11:29] VITALS: BP 118/71; PULSE 90; RESP 16; TEMP 36.2; O2SAT 99
--- NOTE | 2025-08-10 11:30 | P.OPN-COLO_ITS ---
Colonoscopy Operative Note Operative Note Date of Service: 08/10/25 Narrative: Procedure: Colonoscopy Indication: Constipation, rectal bleeding Endoscopist: Keyonna Salmeron MD Anesthesia Provider: Annmarie Joyner CRNA Anesthesia type: MAC Instrument: Olympus [id number]-[id number] Consent: Indication, risks vs benefits, and alternatives were discussed with the patient who gave written informed consent to proceed. EKG, pulse, pulse oximetry and blood pressure were monitored throughout the procedure. Please see anesthesia flowsheet. Procedure: The patient was brought to the procedure room and placed in the left lateral decubitus position. IV medications were administered by the anesthesia provider in attendance. A digital rectal exam was performed which was normal. A distal attachment cap was affixed to the tip of the colonoscope which was then inserted through the anus and advanced through the colon to the cecum at 75 cm,and terminal ileum. Appendiceal orifice and ileocecal valve were identified. Mucosa was carefully examined under high definition white light as the instrument was slowly withdrawn in a retrograde panoramic fashion. Retroflexion was performed in rectum. The procedure was not difficult. There were no immediate obvious complications. The quality of the prep was BBPS: 2+3+3 = adequate Withdrawal time 7 minutes. Limitations: No limitations. Findings: Mucosa: Normal to cecum and terminal ileum. Protruding lesions: * Medium internal hemorrhoids without stigmata of recent bleeding. Excavated lesions: * Mild diverticulosis of sigmoid colon. Impression: 1. Normal colon mucosa 2. Diverticulosis 3. Internal hemorrhoids Recommendations: - Increase fiber intake - Avoid straining and constipation - Repeat colonoscopy for asymptomatic colorectal cancer screening in 10 years
[2025-08-10 11:44] VITALS: BP 127/77; PULSE 72; RESP 16; TEMP 36.4; O2SAT 100
== END 2025-08-10 12:02 | disposition home or self-care (01) ==
PROVIDERS: Nurse Practitioner; PCP Nurse Practitioner Family; Visit Provider Internal Medicine
PROC: 0DJD8ZZ Inspection of Lower Intestinal Tract, Via Natural or Artificial Opening Endoscopic (ICD-10-PCS; CPT 45378; principal; 2025-08-10 12:40)
DX: K59.04 Chronic idiopathic constipation (principal); K62.5 Hemorrhage of anus and rectum; K57.30 Diverticulosis of large intestine without perforation or abscess without bleeding; K64.8 Other hemorrhoids; K21.9 Gastro-esophageal reflux disease without esophagitis; Z79.899 Other long term (current) drug therapy; K29.50 Unspecified chronic gastritis without bleeding
CPT/HCPCS: 45378; 81025; J2003; J2704

== ENCOUNTER → 2025-08-10 10:31 | Outpatient (BNV) | payer OTHER, SELFPAY | PROVIDERS: PCP Nurse Practitioner Family; Visit Provider Internal Medicine | DX: K59.04 Chronic idiopathic constipation (principal); K57.30 Diverticulosis of large intestine without perforation or abscess without bleeding; K64.8 Other hemorrhoids | CPT/HCPCS: 45378 ==

== ENCOUNTER 2025-08-14 07:49 | Outpatient (AMB) | payer OTHER, SELFPAY ==
--- NOTE | 2025-08-14 07:51 | A.OFFVIS_ITS ---
Vital Signs 08/14/25 07:55 Height 5 ft 6 in Weight 222 lb 3.615 oz BMI 35.9 BP 104/74 Blood Pressure Location Rt brachial Position Sitting Pulse 86 Pulse Source Pulse Oximeter Pulse Oximetry (%) 98 Oxygen Delivery Method Room Air Intake Visit Reasons: f/u obesity Intake Note: Patient present today for Obesity follow up. [employer] Required: No Accompanied by: Self / Same As Patient Allergies No Known Allergies Allergy (Verified 08/14/25 07:55) Environmental Allergy (Unknown, Uncoded 08/14/25 07:55) none HPI Comments Details: This is a 45-year-old black female sent to endocrinology for evaluation of obesity. Patient states weight gain of 20 lb increments over . Patient has always been overweight since 1999. She has tried diets of intermittent fasting . . She has met with a bulk cooler installer here. She has tried weight loss medications OTC, Goes to gym but not lately due to knee arthritis . She is prescribed Wegovy but needs endocrine input There are no symptoms of hypothyroidism. There are no symptoms of Kesli syndrome. Has 1 children . No difficulty with fertility. No sx of Gardners's Syndrome . Family hx of Type 2 DM in mother and father. No hx of pancreatis . Currently on Zepbound 5 mg Qwkly off and on The patient is a 45-year-old female presenting for weight management and medication evaluation. The patient has been experiencing weight gain, having increased from 206 pounds to 221 pounds after discontinuing Wegovy and starting Zepbound intermittently. She reports that the initial dose of Zepbound did not alter her eating habits, and due to a recent surgery, she has been inconsistent with the medication. The patient previously used Wegovy, which she now realizes caused her to feel unwell, although it effectively reduced her appetite. She notes that while on Wegovy, she could not finish a whole burger, but now on Zepbound, she can consume more, indicating a decrease in satiety. The patient is concerned about the upcoming lack of insurance coverage for weight loss medications, including Zepbound and Wegovy, starting November 16. She works for [employer], which has opted out of covering these medications, and she is considering the financial implications of continuing treatment. The patient acknowledges that without medication, she tends to snack out of boredom, which contributes to her weight gain. She has attempted to manage her weight independently but finds the medication significantly aids in controlling her appetite. - Wegovy: Previously used, caused malaise but reduced appetite. - Zepbound: Currently using intermittently, 5 mg dose, inconsistent due to surgery. [facility] Medical History Osteoarthritis of knees, bilateral Chest congestion Cough Left Achilles tendinitis Plantar fasciitis, left Arthritis History of torn meniscus of knee COVID-19 (~05/2020) GERD (gastroesophageal reflux disease) Surgical History History of colonoscopy H/O lateral meniscus repair of right knee History of transurethral resection of bladder tumor (TURBT) Hx of foot surgery History of esophagogastroduodenoscopy (EGD) Previous section (2007) Family History Father Seizure HTN (hypertension) Diabetes No family history of cancer Mother Diabetes HTN (hypertension) S/P triple vessel bypass Daughter Mental health disorder No family history of cancer Social History Housing: Apartment Alcohol intake: current Alcohol intake frequency: holidays/special occasions only Patient Tobacco Use Status: Never used Tobacco e-Cigarette/Vaping Use: Never Used Second Hand Smoke Exposure: No service: No Current occupational status: employed Current occupation: [employer] Current occupational exposures/hazards: Yes Cognitive needs: No Hearing needs: No Vision needs: Yes Physical Exam Vital Signs: BMI result Body Mass Index 35.9 Assessment & Plan Assessment & Plan (1) Obesity: Code(s): E66.9 - Obesity, unspecified Category: Medical Plan: 1. Obesity The patient has experienced weight gain after discontinuing Wegovy and starting Zepbound intermittently. The plan includes increasing to 7.5 mg if tolerated. The patient is advised to monitor her weight and dietary habits closely. 2. Post-surgical recovery The patient has been inconsistent with Zepbound due to recent surgery. It is recommended to resume consistent dosing as tolerated and monitor for any post- surgical complications. During the visit, we discussed the patient's weight management challenges and the impact of medication on her appetite and overall well-being. I explained the upcoming changes in insurance coverage for weight loss medications and the potential financial implications. We also increased the Zepbound dose to 7.5 mg if tolerated and the importance of consistent medication use post-surgery. The patient had an opportunity to ask questions regarding treatment plan. The patient expressed understanding and agreement with the above treatment plan. Patient was informed and verbally consented to the use of an ambient scribe for clinic note documentation during this visit. Medications: New Zepbound (tirzepatide (weight loss)) 7.5 mg (0.5 mL) subcut QWEEK 2 mL 5RF NS Discontinued tirzepatide (weight loss) (Zepbound) Discontinued Reason: Doctor's Order 5 mg (0.5 mL) subcut QWEEK 2 mL 4RF Coding Level of Care Code Est Pt Level 3 (03967) Diagnoses Obesity E66.9
--- OUTSIDE RECORDS SUMMARY | 2025-08-14 07:52 | XMS_ITS | Clinical Summary ---
Author Organization [facility] Address [address] [place] [address] Phone Care Team Providers Care Director Life Insurance Name Role Phone Unavailable Primary Care Provider [...]
--- OUTSIDE RECORDS SUMMARY | 2025-08-14 07:52 | XMS_ITS | Patient Health Record ---
Author Organization [facility] Address [address] [facility] [place] [address] Care Team Providers Care Set Up Worker Name Role Phone Herman Moeller Primary Care Provider Unav ailable Taylor Perez Unavailable [phone] AlanLeonard arias Unavailable [phone] Allergies Allergen (clinical drug ingredient) Drug/Non Drug [...] Status Risk Notes Problem Plantar fascial fibromatosis (52930404) Plantar fascial fibromatosis (M72.2) Active confirmed Problem Plantar wart (16322582) Plantar wart (B07.0) Active confirmed Problem Neuropathy (096828549) Neuropathy (G62.9) Active confirmed Problem Mononeuropathy of lower limb (639024289) Neuritis of right foot (G57.91) Active confirmed Problem Mononeuropathy of lower limb (562301783) Neuritis of left foot (G57.92) Active confirmed Problem Localized, primary osteoarthritis of the ankle and/or foot (293097160) 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) Active confirmed Vital Signs Height 5ft 6in in 08/26/2024 Weight 264 lbs 08/26/2024 BMI 42.61 kg/m2 08/26/2024 Encounters Encounter Location Date Provider Diagnosis [address] [address] 08/26/2024 Taylor Perez Muscle cramp, nocturnal R25.2 ; Plantar fascial fibromatosis M72.2 ; Achilles tendinitis of left lower extremity M76.62 ; Neuritis of left foot G57.92 ; Metatarsalgia, left foot M77.42 ; Pain in left foot M79.672 ; Bursitis of left foot M77.52 ; Calcaneal spur, left foot M77.32 and Primary osteoarthritis of left foot M19.[address] [address] 08/19/2024 [facility] [address] 08/26/2024 Taylor Perez [address] [address] 08/31/2024 Leonard Phillips [facility] [address] [place] [address] 10/20/2024 Leonard Phillips [facility] [address] [address] 11/29/2024 [facility] [address] [address] 12/26/2024 Leonard Phillips [facility] [address] 01/25/2025 Leonard Phillips Assessments Encounter Date Diagnosis [...] X ray : Foot, right 3V 02/26/2023 [id number] Destruction, 1-14 02/26/2023 [id number] TENDON SHEATH/LIGAMENT 0 04/30/2023 Insurance Providers Payer Name Payer Address Payer Phone Subscriber Number Group Number Insured Name Patient Relationship to Insured Coverage Start Date Coverage End Date [facility] [address] [place] [address] [id number] Silvana Ruiz Self - patient is the insured Medical (General) History Medical History History ICD Code Anxiety Arthritis Back pain Chicken pox Reflux ( GERD) Surgical History Surgery Date(Month/Year) 09/12/08 [place] Plantar Fasciotomy Left ft 3 knee surgery left 06/20/2024
[2025-08-14 07:55] VITALS: BP 104/74; PULSE 86; O2SAT 98; BMI 35.9
== END 2025-08-14 08:15 | disposition home or self-care (01) ==
LOC: HO.ENCR 07:50
PROVIDERS: PCP Nurse Practitioner Family; Visit Provider Internal Medicine Endocrinology, Diabetes & Metabolism
DX: E66.9 Obesity, unspecified (principal)
CPT/HCPCS: 99213

== ENCOUNTER → 2025-08-16 13:03 | Outpatient (BNV) | payer OTHER, SELFPAY | PROVIDERS: PCP Nurse Practitioner Family; Referring Provider Nurse Practitioner Family; Visit Provider Internal Medicine | DX: I82.890 Acute embolism and thrombosis of other specified veins (principal) | CPT/HCPCS: 99204; G2211 ==

== ENCOUNTER 2025-08-29 11:38 | Outpatient (REF) | payer OTHER, SELFPAY ==
--- NOTE | ~2025-08-29 | XR_ITS ---
EXAMINATION: XR LUMBOSACRAL SPINE CLINICAL INFORMATION: M54.50 - Low back pain, unspecified COMPARISON: None available. TECHNIQUE: Three views of the lumbosacral spine. FINDINGS: There is normal lumbar lordosis. The vertebral heights and alignment is normal. There is loss of L5-S1 disc height. Rest the disc heights are normal. No visible acute fracture, dislocation or lytic process seen. There is mild bilateral L4-5 facet joint arthropathy and hypertrophy. The paravertebral soft tissues are normal. XR/XR lumbar spine 2-3V IMPRESSION: Mild degenerative disc changes L5-S1 disc level. There is mild bilateral L4-5 facet joint arthropathy. Electronically signed by: Gamaliel Samson MD 08/29/2025 12:50 PM EDT
== END 2025-08-29 11:39 | disposition home or self-care (01) ==
LOC: HO.HMGCX 11:38
PROVIDERS: PCP Nurse Practitioner Family; Visit Provider Internal Medicine
DX: M54.50 Low back pain, unspecified (principal); M62.830 Muscle spasm of back
CPT/HCPCS: 72100

== ENCOUNTER 2025-08-29 11:38 | Outpatient (AMB) | payer OTHER, SELFPAY ==
[2025-08-29 11:43] VITALS: BP 104/70; PULSE 84; TEMP 36.7; O2SAT 96; BMI 36.2
--- NOTE | 2025-08-29 11:43 | AM.OFFWIN_ITS ---
Intake Vital Signs 08/29/25 11:43 Height 5 ft 6 in Weight 224 lb BMI 36.2 BP 104/70 Blood Pressure Location Lt brachial Position Sitting Pulse 84 Pulse Source Pulse Oximeter Temp 98.0 F Temp Source Oral Pulse Oximetry (%) 96 Oxygen Delivery Method Room Air Intake Visit Reasons: ep pain in lower back for 3 weeks Patient Tobacco Use Status: Never used Tobacco Allergies environmental allergies Allergy (Mild, Verified 08/29/25 11:46) sinusitis Medication List - Last Reconciled 08/29/25 by Shyann Ramirez MD bisacodyl (Dulcolax (bisacodyl)) 20 mg (4 x 5 mg) PO ONCE 1 day linaclotide (Linzess) 145 mcg PO DAILY PRN medroxyprogesterone 150 mg IM [id number] polyethylene glycol 3350 (Miralax) 238 grams PO ONCE prucalopride (Motegrity) 2 mg PO DAILY tizanidine 4 mg PO BEDTIME Zepbound (tirzepatide (weight loss)) 7.5 mg (0.5 mL) subcut QWEEK NS Do you need a note to return to daycare/school/sports/work: Yes HPI ep pain in lower back for 3 weeks HPI Details History of Present Illness The patient is a 45-year-old female presenting with back pain. Back pain: - Onset: Approximately three weeks ago a fter knee surgery recovery and not due to a specific event. - History: The patient reports a history of intermittent back pain years ago, which diminished and had not been notable since 2015 or 2016. - Event: Current episode commenced with no distinct inciting incident, noticed before resuming work. - Description: Patient describes the rupesh n as severe, causing immobility, notably worse with movement, leading to a slow and deliberate change in posture. - Radiation: No radiation to legs - Associated symptoms: Muscle spasms not ed, with tenderness in the lumbar region. - Medications tried: Tizanidine and Tyle nol with limited relief. - Aggravating factors: Movement exacerba hillary pain. - Alleviating factors: No effective reli ef noted from current medications. 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 - Recently returned to work following a two-month absence post-surgery. For meniscus repair knee - Reports used all vacation leaves durin g recovery period and hence cannot afford more absence currently. Problem List - Lumbar back pain with muscular spasm Plan - Discontinue Tizanidine due to inadequa te efficacy in managing muscle spasms during current exacerbation of back pain. - Prescribe Baclofen to be taken at [facility] for muscle spasm relief. - Recommend lumbar spine X-ray to assess underlying causes or changesr. - Advise use of a back support belt at w ork if she must work with back pain - Emphasize importance of finding balanc e in physical workload due to previous knee surgery and current back pain. - start diclofenac 75 mg b.i.d. with syed d Follow up with primary care Review of Systems - General: No fever no chills - Neurological: No headaches no dizziness - Ear nose throat: No sore throat no hearing difficulty no ear pain - Cardiovascular: No syncope, no chest pain, no palpitations - Gastrointestinal: No nausea vomiting or diarrhea - Endocrine: No polyuria polydipsia no heat intolerance - Genitourinary: No dysuria , no blood in urine Physical Exam - General: No acute distress - HEENT: No acute findings - Neck: Supple - Respiratory system: Able to talk in f ull sentences, no audible wheeze - Cardiovascular: S1-S2 regular in rate and rhythm - no pain with percussion over lumbar sp ine pain is located paraspinal lumbar area with limited range of motion secondary to discomfort, straight leg negative both sides - Gastrointestinal: No pain - Extremities: No new findings - DEVELOPMENT INTERN: Alert awake oriented x3 motor in tact - Skin: Normal turgor PFSH Medical History Lumbar radiculopathy Cervical radiculopathy Osteoarthritis of knees, bilateral Chest congestion Cough Left Achilles tendinitis Plantar fasciitis, left Arthritis History of torn meniscus of knee COVID-19 (~05/2020) GERD (gastroesophageal reflux disease) Surgical History History of colonoscopy H/O lateral meniscus repair of right knee History of transurethral resection of bladder tumor (TURBT) Hx of foot surgery History of esophagogastroduodenoscopy (EGD) Previous section (2007) Family History Father Seizure HTN (hypertension) Diabetes No family history of cancer Mother Diabetes HTN (hypertension) S/P triple vessel bypass Daughter Mental health disorder No family history of cancer Social History Household Members: Family and Children Housing: Apartment Alcohol intake: current Alcohol intake frequency: holidays/special occasions only Patient Tobacco Use Status: Never used Tobacco e-Cigarette/Vaping Use: Never Used Second Hand Smoke Exposure: No service: No Current occupational status: employed Current occupation: [employer] Current occupational exposures/hazards: Yes Cognitive needs: No Hearing needs: No Vision needs: Yes Physical Exam Vital Signs: Last Vital Signs Temp 98.0 F 08/29/25 11:43 Pulse 84 08/29/25 11:43 BP 104/70 08/29/25 11:43 Pulse Ox 96 08/29/25 11:43 Oxygen Delivery Method Room Air 08/29/25 11:43 BMI result Body Mass Index 36.2 Assessment & Plan Assessment & Plan (1) Lumbar pain: Code(s): M54.50 - Low back pain, unspecified (2) Lumbar paraspinal muscle spasm: Code(s): M62.830 - Muscle spasm of back Plan Back pain: - Onset: Approximately three weeks ago after knee surgery recovery and not due to a specific event. - History: The patient reports a history of intermittent back pain years ago, which diminished and had not been notable since 2014 or 2015. - Event: Current episode commenced with no distinct inciting incident, noticed before resuming work. - Description: Patient describes the pain as severe, causing immobility, notably worse with movement, leading to a slow and deliberate change in posture. - Radiation: No radiation to legs - Associated symptoms: Muscle spasms noted, with tenderness in the lumbar region. - Medications tried: Tizanidine and Tylenol with limited relief. - Aggravating factors: Movement exacerbates pain. - Alleviating factors: No effective relief noted from current medications. 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 - Recently returned to work following a two-month absence post-surgery. For meniscus repair knee - Reports used all vacation leaves during recovery period and hence cannot afford more absence currently. Problem List - Lumbar back pain with muscular spasm Plan - Discontinue Tizanidine due to inadequate efficacy in managing muscle spasms during current exacerbation of back pain. - Prescribe Baclofen to be taken at night for muscle spasm relief. - Recommend lumbar spine X-ray to assess underlying causes or changesr. - Advise use of a back support belt at work if she must work with back pain - Emphasize importance of finding balance in physical workload due to previous knee surgery and current back pain. - start diclofenac 75 mg b.i.d. with food Follow up with primary care Orders: Orders XR lumbar spine 2-3V Today M54.50 - Low back pain, unspecified Medications: New baclofen 20 mg PO BEDTIME 10 tabs 0RF diclofenac sodium take it with food 75 mg PO BID 20 tabs 0RF pain 10 days Coding Level of Care Code Est Pt Level 3 (82354) Diagnoses Lumbar pain M54.50 Lumbar paraspinal muscle spasm M62.830
--- OUTSIDE RECORDS SUMMARY | 2025-08-29 14:12 | XMS_ITS | Patient Health Record ---
Author Organization [facility] Address [address] [facility] [place] [address] Care Team Providers Care Ledge Man Name Role Phone Herman Moeller Primary Care Provider Unav ailable Taylor Perez Unavailable [phone] AlanLeonard arias Unavailable [phone] Allergies Allergen (clinical drug ingredient) Drug/Non Drug [...] Status Risk Notes Problem Plantar fascial fibromatosis (39963622) Plantar fascial fibromatosis (M72.2) Active confirmed Problem Plantar wart (69472870) Plantar wart (B07.0) Active confirmed Problem Neuropathy (486017874) Neuropathy (G62.9) Active confirmed Problem Mononeuropathy of lower limb (622068550) Neuritis of right foot (G57.91) Active confirmed Problem Mononeuropathy of lower limb (912698700) Neuritis of left foot (G57.92) Active confirmed Problem Localized, primary osteoarthritis of the ankle and/or foot (532215806) 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) Active confirmed Encounters Encounter Location Date Provider Diagnosis [address] [address] 08/31/2024 Leonard Phillips [address] [address] 10/20/[address] [address] 11/29/2024 Leonard Phillips [address] [address] 12/26/[address] [address] 01/25/2025 Leonard Phillips Plan Of Treatment Pending Test Test Name Order Date MRI : Foot, left 08/26/2024 X ray : Ankle, left 3V 08/11/2023 X ray : Foot, left 3V 05/30/2024 X ray : Foot, left 3V 08/26/2024 X ray : Foot, left 3V 02/26/2023 X ray : Foot, right 3V 02/26/2023 [id number] Destruction, 1-14 02/26/2023 [id number] TENDON SHEATH/LIGAMENT 0 04/30/2023 Insurance Providers Payer Name Payer Address Payer Phone Subscriber Number Group Number Insured Name Patient Relationship to Insured Coverage Start Date Coverage End Date [facility] [address] [facility] [place] [address] [id number] Silvana Ruiz Self - patient is the insured Medical (General) History Medical History History ICD Code Anxiety Arthritis Back pain Chicken pox Reflux ( GERD) Surgical History Surgery Date(Month/Year) 09/12/08 [place] Plantar Fasciotomy Left ft 3 knee surgery left 06/20/2024
--- OUTSIDE RECORDS SUMMARY | 2025-08-29 14:12 | XMS_ITS | Clinical Summary ---
Author Organization [facility] Address [address] [place] [address] Phone Care Team Providers Care [place] Name Role Phone Unavailable Primary Care Provider [...] 2008 Influenza Vaccines (#1) 2025 COVID-19 Vaccine (2024- season) 2025 HIB Vaccines Completed 07/05/1985 IPV [...]
== END 2025-08-29 12:11 | disposition home or self-care (01) ==
PROVIDERS: PCP Nurse Practitioner Family; Visit Provider Internal Medicine
DX: M54.50 Low back pain, unspecified (principal); M62.830 Muscle spasm of back

== ENCOUNTER → 2025-08-29 12:05 | Outpatient (BNV) | payer OTHER, SELFPAY | PROVIDERS: PCP Nurse Practitioner Family; Visit Provider Radiology Diagnostic Radiology | DX: M51.360 Other intervertebral disc degeneration, lumbar region with discogenic back pain only (principal) | CPT/HCPCS: 72100 ==

== ENCOUNTER 2025-09-01 07:59 | Outpatient (REF) | payer OTHER, SELFPAY ==
--- NOTE | ~2025-09-01 | US_ITS ---
EXAMINATION: US TRIPLEX LOWER EXTREMITY, RIGHT CLINICAL INFORMATION: Occlusive thrombus in the right superficial venous system near the right inguinal region. COMPARISON: April 25, 2025 TECHNIQUE: Color-flow triplex imaging with spectral analysis and compression Doppler were performed on the right lower extremity. FINDINGS: Respiratory variation, normal compression and augmented flow are demonstrated in the interrogated right common femoral vein, superficial femoral vein, profunda femoral vein, popliteal vein and midcalf peroneal and posterior tibial venous segments. There is a noncompressible superficial vein near the right inguinal region possibly a branch of the great saphenous vein.. There is no Scott's cyst. US/US venous duplex LE RT IMPRESSION: Persistent occlusive thrombus in the superficial venous system near the right inguinal region possible great saphenous vein branch. No acute deep venous thrombosis in the interrogated veins, right lower extremity. Electronically signed by: Abelardo De Santiago MD 09/01/2025 09:06 AM EDT
--- OUTSIDE RECORDS SUMMARY | 2025-09-01 08:12 | XMS_ITS | Patient Health Record ---
Author Organization [facility] Address [address] [facility] [place] [address] Care Team Providers Care Electrical Assistant Name Role Phone Herman Moeller Primary Care Provider Unav ailable Taylor Perez Unavailable [phone] AlanLeonard arias Unavailable [phone] Allergies Allergen (clinical drug ingredient) Drug/Non Drug [...] Status Risk Notes Problem Plantar fascial fibromatosis (84902434) Plantar fascial fibromatosis (M72.2) Active confirmed Problem Plantar wart (75470279) Plantar wart (B07.0) Active confirmed Problem Neuropathy (659475500) Neuropathy (G62.9) Active confirmed Problem Mononeuropathy of lower limb (794710967) Neuritis of right foot (G57.91) Active confirmed Problem Mononeuropathy of lower limb (033982181) Neuritis of left foot (G57.92) Active confirmed Problem Localized, primary osteoarthritis of the ankle and/or foot (364840098) 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) Active confirmed Encounters Encounter Location Date Provider Diagnosis [facility] [address] 10/20/[address] [address] 11/29/[address] [address] 12/26/[address] [address] 01/25/2025 Leonard Phillips Plan Of Treatment Pending Test Test Name Order Date MRI : Foot, left 08/26/2024 X ray : Ankle, left 3V 08/11/2023 X ray : Foot, left 3V 05/30/2024 X ray : Foot, left 3V 08/26/2024 X ray : Foot, left 3V 02/26/2023 X ray : Foot, right 3V 02/26/2023 [id number] Destruction, 1-14 02/26/2023 [id number] TENDON SHEATH/LIGAMENT 0 04/30/2023 Insurance Providers Payer Name Payer Address Payer Phone Subscriber Number Group Number Insured Name Patient Relationship to Insured Coverage Start Date Coverage End Date [facility] [address] [place] [address] [phone] [id number] Silvana Ruiz Self - patient is the insured Medical (General) History Medical History History ICD Code Anxiety Arthritis Back pain Chicken pox Reflux ( GERD) Surgical History Surgery Date(Month/Year) 09/12/08 [place] Plantar Fasciotomy Left ft 3 knee surgery left 06/20/2024
--- OUTSIDE RECORDS SUMMARY | 2025-09-01 08:13 | XMS_ITS | Clinical Summary ---
Author Organization [facility] Address [address] [place] [address] Phone Care Team Providers Care Shower Maid Name Role Phone Unavailable Primary Care Provider [...]
== END 2025-09-01 08:00 | disposition home or self-care (01) ==
LOC: HO.US 07:59
PROVIDERS: PCP Nurse Practitioner Family; Visit Provider Internal Medicine
DX: Z86.718 Personal history of other venous thrombosis and embolism (principal)
CPT/HCPCS: 93971

== ENCOUNTER → 2025-09-01 08:00 | Outpatient (BNV) | payer OTHER, SELFPAY | PROVIDERS: PCP Nurse Practitioner Family; Visit Provider Radiology Diagnostic Radiology | DX: I82.811 Embolism and thrombosis of superficial veins of right lower extremity (principal) | CPT/HCPCS: 93971 ==

== ENCOUNTER 2025-09-13 11:59 | Outpatient (AMB) | payer OTHER, SELFPAY ==
[2025-09-13 12:00] VITALS: BP 114/70; PULSE 81; TEMP 37.1; O2SAT 100; BMI 35.0
--- NOTE | 2025-09-13 12:00 | MHC.OFFWIV ---
Intake Vital Signs 09/13/25 12:00 Height 5 ft 6 in Weight 217 lb BMI 35.0 BP 114/70 Blood Pressure Location Lt brachial Position Sitting Pulse 81 Pulse Source Pulse Oximeter Temp 98.8 F Temp Source Oral Pulse Oximetry (%) 100 Oxygen Delivery Method Room Air Intake Visit Reasons: EP Lower back pain Intake Note: pt presents with continuos low back pain Patient Tobacco Use Status: Never used Tobacco Allergies environmental allergies Allergy (Mild, Verified 09/13/25 12:02) sinusitis Do you need a note to return to daycare/school/sports/work: No HPI HPI Comments History of Present Illness Details History - The patient is a 45-year-old female presenting with lower back pain. - The lower back pain began approximately two weeks before August 21, with no specific inciting event identified, no trauma. - An x-ray revealed arthritis in the spine and neck, and degenerative disc changes. - Initial treatment with baclofen and diclofenac provided relief for 10 days, but pain returned after cessation. - The patient is currently on Eliquis due to a blood clot in the groin, which contraindicates the use of NSAIDs. This was started after she was RX'd Baclofen and she was not aware of the contraindication. - Physical therapy has been initiated by [facility], with one session completed, but pain persists with certain movements and prolonged sitting or standing. She has been seeing [facility] for this issue too. - The patient has been using topical treatments like [place] and heat pads for temporary relief. Review of Systems - Musculoskeletal: Reports persistent lower back pain, worsened by prolonged sitting or standing. Denies any specific injury. - Neurological: Denies loss of bladder or bowel control. All systems reviewed and are unremarkable except as noted in HPI Physical Exam General: cooperative, healthy appearing and comfortable, patient oriented x3 Head: Yes normal to inspection and Yes normocephalic General nose exam: Normal external nose present Face and sinus: Yes normal facial exam Effort & Inspection: normal respiratory effort and able to speak in complete sentences Back/spine: CVA tenderness bilaterally cervical, thoracic and lumbar spine normal to inspection cervical ROM normal, thoracic ROM normal, lumbar ROM slow and deliberate with pain no Cervical, thoracic or lumbar spine tenderness TTP on bilateral lumbar back Extremities: moving extremities normally Neuro: A&O x3, jenn gait [facility] Medical History Lumbar radiculopathy Cervical radiculopathy Osteoarthritis of knees, bilateral Chest congestion Cough Left Achilles tendinitis Plantar fasciitis, left Arthritis History of torn meniscus of knee COVID-19 (~05/2020) GERD (gastroesophageal reflux disease) Surgical History History of colonoscopy H/O lateral meniscus repair of right knee History of transurethral resection of bladder tumor (TURBT) Hx of foot surgery History of esophagogastroduodenoscopy (EGD) Previous section (2007) Family History Father Seizure HTN (hypertension) Diabetes No family history of cancer Mother Diabetes HTN (hypertension) S/P triple vessel bypass Daughter Mental health disorder No family history of cancer Social History Household Members: Family and Children Housing: Apartment Alcohol intake: current Alcohol intake frequency: holidays/special occasions only Patient Tobacco Use Status: Never used Tobacco e-Cigarette/Vaping Use: Never Used Second Hand Smoke Exposure: No service: No Current occupational status: employed Current occupation: [employer] Current occupational exposures/hazards: Yes Cognitive needs: No Hearing needs: No Vision needs: Yes Physical Exam Vital Signs: Last Vital Signs Temp 98.8 F 09/13/25 12:00 Pulse 81 09/13/25 12:00 BP 114/70 09/13/25 12:00 Pulse Ox 100 09/13/25 12:00 Oxygen Delivery Method Room Air 09/13/25 12:00 BMI result Body Mass Index 35.0 Results Reviewed Results Reviewed: Patient: Silvana Ruiz MR#: [id number] : 1980 Acct:[id number] Age/Sex: 45 / F ADM Date: 08/29/25 Loc: HO.HMGCX Attending Dr: Shyann Ramirez MD Ordering Physician: Shyann Ramirez MD Date of Service: 08/29/25 Procedure(s): XR lumbar spine 2-3V Accession Number(s): [id number] cc: Herman Clark ORTHOTIC ASSISTANT-; Shyann Ramirez MD~ Reason for Exam: M54.50 - Low back pain, unspecified EXAMINATION: XR LUMBOSACRAL SPINE CLINICAL INFORMATION: M54.50 - Low back pain, unspecified COMPARISON: None available. TECHNIQUE: Three views of the lumbosacral spine. FINDINGS: There is normal lumbar lordosis. The vertebral heights and alignment is normal. There is loss of L5-S1 disc height. Rest the disc heights are normal. No visible acute fracture, dislocation or lytic process seen. There is mild bilateral L4-5 facet joint arthropathy and hypertrophy. The paravertebral soft tissues are normal. XR/XR lumbar spine 2-3V IMPRESSION: Mild degenerative disc changes L5-S1 disc level. There is mild bilateral L4-5 facet joint arthropathy. Assessment & Plan Assessment & Plan (1) Acute lumbar back pain: Code(s): M54.50 - Low back pain, unspecified Qualifiers: Back pain laterality: bilateral Sciatica presence: without sciatica Qualified Code(s): M54.50 - Low back pain, unspecified Plan: Plan - Initiate a prednisone taper starting with 60 mg for three days, followed by 40 mg for three days, and 20 mg for the last four days to manage inflammation and pain as on Eliquis and c/i NSAIDS. - Continue physical therapy to improve mobility and reduce pain. - Schedule a follow-up telehealth appointment with the primary care physician to discuss long-term management and potential referral to a business continuity specialist. 09/25 7:30am telehealth has been scheduled for her to follow up s/p prednisone, may need referral to business continuity specialist. Saw [facility] but unclear if they manage spines...? - Refilled Baclofen PRN at bedtime. - Advise the use of back support and ice application for symptomatic relief. Patient was informed and verbally consented to the use of an ambient scribe for clinic note documentation during this visit. Medications: New prednisone On days 1-3, take 3 tablets with breakfast. On days 4-6 take 2 tablets with breakfast, on days 7-10 take 1 tablet with breakfast 20 mg PO daily 19 tabs 0RF Refilled baclofen 20 mg PO BEDTIME 10 tabs 0RF Coding Level of Care Code Est Pt Level 3 (67398) Diagnoses Acute bilateral low back pain without sciatica M54.50 Back pain laterality: bilateral Sciatica presence: without sciatica
--- OUTSIDE RECORDS SUMMARY | 2025-09-13 15:25 | XMS_ITS | Clinical Summary ---
Author Organization [facility] Address [address] [place] [address] Phone Care Team Providers Care Dump Grader Name Role Phone Unavailable Primary Care Provider [...]
--- OUTSIDE RECORDS SUMMARY | 2025-09-13 15:25 | XMS_ITS | Patient Health Record ---
Author Organization [facility] Address [address] [facility] [place] [address] Care Team Providers Care Superintendent Measurement Name Role Phone Herman Moeller Primary Care Provider Unav ailable Taylor Perez Unavailable [phone] AlanLeonard arias Unavailable [phone] Allergies Allergen (clinical drug ingredient) Drug/Non Drug [...] Status Risk Notes Problem Plantar fascial fibromatosis (94153978) Plantar fascial fibromatosis (M72.2) Active confirmed Problem Plantar wart (60355357) Plantar wart (B07.0) Active confirmed Problem Neuropathy (864320346) Neuropathy (G62.9) Active confirmed Problem Mononeuropathy of lower limb (360512222) Neuritis of right foot (G57.91) Active confirmed Problem Mononeuropathy of lower limb (687203450) Neuritis of left foot (G57.92) Active confirmed Problem Localized, primary osteoarthritis of the ankle and/or foot (810730260) 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) Active confirmed Encounters Encounter Location Date Provider Diagnosis [facility] [address] 10/20/[address] [address] 11/29/[address] [address] 12/26/[address] [address] 01/25/2025 Leonard Phillips Plan Of Treatment Pending Test Test Name Order Date MRI : Foot, left 08/26/2024 X ray : Ankle, left 3V 08/11/2023 X ray : Foot, left 3V 05/30/2024 X ray : Foot, left 3V 08/26/2024 X ray : Foot, left 3V 02/26/2023 X ray : Foot, right 3V 02/26/2023 [id number] Destruction, 1-14 02/26/2023 [id number] TENDON SHEATH/LIGAMENT 0 04/30/2023 Insurance Providers Payer Name Payer Address Payer Phone Subscriber Number Group Number Insured Name Patient Relationship to Insured Coverage Start Date Coverage End Date [facility] [address] [place] [address] [id number] Silvana Ruiz Self - patient is the insured Medical (General) History Medical History History ICD Code Anxiety Arthritis Back pain Chicken pox Reflux ( GERD) Surgical History Surgery Date(Month/Year) 09/12/08 [place] Plantar Fasciotomy Left ft 3 knee surgery left 06/20/2024
== END 2025-09-13 12:16 | disposition home or self-care (01) ==
PROVIDERS: PCP Nurse Practitioner Family; Visit Provider Physician Assistant
DX: M54.50 Low back pain, unspecified (principal)

== ENCOUNTER 2025-09-25 06:42 | Outpatient (AMB) | payer OTHER, SELFPAY ==
--- OUTSIDE RECORDS SUMMARY | 2025-09-21 23:59 | XMS_ITS | Continuity of Care Document ---
Author Organization [facility] Address [address] [place] [id number] [facility] [place] Name Relationship Address Phone RICKEY MCKINLEY sibling Unknown UnavailDAVID Blas mother Unknown Unavailable Care Team Providers Care Concrete Crusher Loader Operator Name Role Phone Eduardo ALEXANDRE, Herman Franco Primary Care Physician Encounter [facility] [place] Date(s): 08/22/25 - 09/21/25 [facility] [address] [place] [address] Attending Physician: Nicole Henriquez Admitting Physician: Nicole Henriquez Referring Physician: Nicole Henriquez Encounter Type: Triage Allergies, Adverse Reactions, Alerts No Known Allergies Medications Acetaminophen = 650 mg, By Mouth, Daily, PRN Pain , Moderate, Maintenance, 12/01/24 8:15:00 AM EST Start Date: 12/01/24 Status: Ordered Medication Dispense Status: Completed Total Allowed Fills: 1 Fills Dispensed: 0 Depo-Estradiol cypionate 5 mg/ml intramuscular solution = 5 mg, Intramuscular, 0 Refills, Maintenance, 02/25/23 9:46:00 AM EDT, Partial fill upon patient request if the prescription is for a schedule II opioid drug. Start Date: 02/25/23 Status: Ordered Medication Dispense Status: Completed Total Allowed Fills: 1 Fills Dispensed: 0 Linzess 145 mcg oral capsule 1 capsule = 145 mcg, By Mouth, Daily, # 30 capsule, 6 Refills, Maintenance, 06/12/25 4:20:00 PM EDT,Capsule, [facility], Partial fill upon patient request if the prescription is for a schedule II opioid drug., 157.5, cm, 06/12/25 16:04:00 EDT, Height, 125.6, kg, 03/12/24 1:43:00 EDT, Dry Weight Start Date: 06/12/25 Status: Ordered Medication Dispense Status: Completed Quantity: 30.0 Unit: capsule Total Allowed Fills: 7 Fills Dispensed: 0 Wegovy (0.5 mg dose) subcutaneous solution = 0.5 mg, Subcutaneous Injection, Every week, in the abdomen, thigh, or upper arm - for weight loss, Maintenance, 12/01/24 8:13:00 AM EST, Solution Start Date: 12/01/24 Status: Ordered Medication Dispense Status: Completed Total Allowed Fills: 1 Fills Dispensed: 0 Problem List Condition Confirmation Course Effective Dates Status Health St atus Informant Constipation Confirmed Active Obese class II Confirmed Active Social History Social History Type Response Sexual Sexually involved in last 6 months: Yes. Gender identity: Female. Preferred pronoun: She/Her/Hers. Smoking Status Never (less than 100 in lifetime) entered on: 06/23/20 Sex Sex Representation Female (finding) Patient Care team information Care Team Personnel Name: Herman Clark NP Position: Reference Physician Member Role: PCP Address: [address] [place] [address] Telecom: Care Team Related Persons Name: RICKEY MCKINLEY Name: DAVID GOODE Insurance Providers Guarantor name: KENDALL GOODE Health Plan Information #: 1 Payer: [facility] PPO Payer Identifier: TAMMI Member Number: [id number] Group Number: [id number] Subscriber Identifier: NA Relationship to Subscriber: self Coverage Type: Other Private Insurance Coverage Verification Date: NA Telecom: TAMMI Address: NA
--- OUTSIDE RECORDS SUMMARY | 2025-09-21 23:59 | XMS_ITS | Continuity of Care Document ---
Author Organization [facility] Address [address] [place] [address] [facility] Name Relationship Address Phone RICKEY MCKINLEY sibling Unknown DAVID Snowden mother Unknown Unavailable Care Team Providers Care Insurance Operations Rep Name Role Phone Eduardo ALEXANDRE, Herman Franco [id number] Date(s[facility]/13/[facility] - 09/21/25 [facility] [address] [place] [address] Attending Physician: Luiz Costa MD Admitting Physician: Luiz Costa MD Referring Physician: Mira Hagan NP Encounter Type: Pre-OutPatient One Time Allergies, Adverse Reactions, Alerts No Known Allergies [...] 6 Refills, Maintenance, 06/12/25 4:20:00 PM EDT,Capsule, [facility], Partial fill upon patient [...] Position: Reference Physician Member Role: PCP Address: [address] [place] [address] Telecom: Care Team Related Persons Name: RICKEY MCKINLEY Name: DAVID GOODE Insurance Providers Guarantor name: KENDALL GOODE Health Plan Information #: 1 [address]ayer: [facility] PPO Payer Identifier: NA Member Number: [id number] Group Number: [id number] Subscriber Identifier: [id number] Relationship to Subscriber: self Coverage Type: Other Private Insurance Coverage Verification Date: NA Telecom: NA Address: NA
--- OUTSIDE RECORDS SUMMARY | 2025-09-25 06:44 | XMS_ITS | Clinical Summary ---
Author Organization [facility] Address [address] [place] [address] Phone Care Team Providers Care Vocal Artist Name Role Phone Unavailable Primary Care Provider [...]
--- OUTSIDE RECORDS SUMMARY | 2025-09-25 06:44 | XMS_ITS | Patient Health Record ---
Author Organization [facility] Address [address] [facility] [place] [address] Care Team Providers Care Senior Recruiter Name Role Phone Herman Moeller Primary Care Provider Unav ailable Taylor Perez Unavailable [phone] LaanLeonard arias Unavailable [phone] Allergies Allergen (clinical drug ingredient) Drug/Non Drug [...] Status Risk Notes Problem Plantar fascial fibromatosis (61486898) Plantar fascial fibromatosis (M72.2) Active confirmed Problem Plantar wart (60281278) Plantar wart (B07.0) Active confirmed Problem Neuropathy (137539889) Neuropathy (G62.9) Active confirmed Problem Mononeuropathy of lower limb (712221041) Neuritis of right foot (G57.91) Active confirmed Problem Mononeuropathy of lower limb (431797237) Neuritis of left foot (G57.92) Active confirmed Problem Localized, primary osteoarthritis of the ankle and/or foot (167934257) 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) Active confirmed Encounters Encounter Location Date Provider Diagnosis [facility] [address] 10/20/[address] [address] 11/29/[address] [address] 12/26/[address] [address] 01/25/2025 Leonard Phillips Plan Of Treatment Pending Test Test Name Order Date MRI : Foot, left 08/26/2024 X ray : Ankle, left 3V 08/11/2023 X ray : Foot, left 3V 05/30/2024 X ray : Foot, left 3V 08/26/2024 X ray : Foot, left 3V 02/26/2023 X ray : Foot, right 3V 02/26/2023 [id number] Destruction, 1-14 02/26/2023 [id number] TENDON SHEATH/LIGAMENT 0 04/30/2023 Insurance Providers Payer Name Payer Address Payer Phone Subscriber Number Group Number Insured Name Patient Relationship to Insured Coverage Start Date Coverage End Date [facility] [address] [place] [address] [phone] [id number] Silvana Ruiz Self - patient is the insured Medical (General) History Medical History History ICD Code Anxiety Arthritis Back pain Chicken pox Reflux ( GERD) Surgical History Surgery Date(Month/Year) 09/12/08 [place] Plantar Fasciotomy Left ft 3 knee surgery left 06/20/2024
--- NOTE | 2025-09-25 07:54 | A.OFFPC_ITS ---
Intake Visit Reasons: Follow up after walk in Allergies environmental allergies Allergy (Mild, Verified 09/25/25 07:55) sinusitis Medication List - Last Reconciled 09/25/25 by MAX OronaP- apixaban (Eliquis DVT-PE Treat 30D Start) 5 mg PO BID baclofen 20 mg PO BEDTIME bisacodyl (Dulcolax (bisacodyl)) 20 mg (4 x 5 mg) PO ONCE 1 day gabapentin 100 mg PO BID 30 days linaclotide (Linzess) 145 mcg PO DAILY PRN medroxyprogesterone 150 mg IM [id number] polyethylene glycol 3350 (Miralax) 238 grams PO ONCE prucalopride (Motegrity) 2 mg PO DAILY Zepbound (tirzepatide (weight loss)) 7.5 mg (0.5 mL) subcut QWEEK NS Tobacco use date assessed: 03/09/25 Dental Screening Dental Screen Date: 02/17/24 HPI Follow up after walk in HPI Details Chief Complaint The patient presents for a follow-up visit for ongoing lower back pain. History of Present Illness The patient is a 45-year-old female presenting via telehealth for a follow-up visit regarding ongoing lower back pain. She was recently seen at a walk-in clinic on two occasions for acute lumbar pain and was treated with NSAIDs, prednisone, and baclofen, which provided some relief. She reports intermittent radiculopathy associated with the back pain but denies any symptoms of cauda eq uina syndrome. A recent lumbar spine x-ray revealed mild degenerative disc changes at L5-S1 and mild bilateral L4-L5 facet joint arthropathy. The patient has just started physical therapy, which is scheduled to continue through October. Her medical history is significant for morbid obesity, for which she is on a GLP-1 agonist, and she is also on an anticoagulant. Social History - Exercise: The patient recently started physical therapy. Health Maintenance - Weight management: The patient is morb idly obese and currently taking a GLP-1 agonist. Review of Systems - Musculoskeletal: Reports ongoing lumba r back pain. - Neurological: Reports intermittent rad iculopathy. - Denies symptoms of cauda equina syndro me. Physical Exam General: Cooperative, healthy appearing, comfortable, no acute distress and well developed Results - Lumbar back X-ray: A recent study show ed mild degenerative disc changes at L5- S1 and mild bilateral L4-L5 facet joint arthropathy. Plan 1. Low Back Pain With Radiculopathy The patient presents for follow-up of [id number] low back pain, which has improved with recent treatment, including NSAIDs, prednisone, and baclofen. Given her concurrent use of an anticoagulant, NSAIDs will be discontinued. The plan is to continue baclofen and initiate low-dose gabapentin for neuropathic pain. She has initiated physical therapy and will continue through October, with a plan to follow up on her progress after completion. 2. Morbid Obesity The patient has morbid obesity and is currently being managed with a GLP-1 agonist. Current management will be continued. Discussion Notes I have explained to the patient that we will discontinue NSAIDs due to her use of an anticoagulant. Instead, we will continue her baclofen and start low-dose gabapentin to address the radicular symptoms. We discussed the importance of continuing with physical therapy through October, and she will contact me to report her progress afterward. Patient Instructions - Continue taking baclofen as prescribed . - Start taking the new prescription for low-dose gabapentin. - Stop taking NSAIDs (like ibuprofen or naproxen) because you are on a blood th inner. - Continue with your physical therapy ap pointments through October. - Please contact our office to provide a n update on your condition after you have completed your course of physical therapy. [facility] Medical History Lumbar radiculopathy Cervical radiculopathy Osteoarthritis of knees, bilateral Chest congestion Cough Left Achilles tendinitis Plantar fasciitis, left Arthritis History of torn meniscus of knee COVID-19 (~05/2020) GERD (gastroesophageal reflux disease) Surgical History History of colonoscopy H/O lateral meniscus repair of right knee History of transurethral resection of bladder tumor (TURBT) Hx of foot surgery History of esophagogastroduodenoscopy (EGD) Previous section (2007) Family History Father Seizure HTN (hypertension) Diabetes No family history of cancer Mother Diabetes HTN (hypertension) S/P triple vessel bypass Daughter Mental health disorder No family history of cancer Social History Household Members: Family and Children Housing: Apartment Alcohol intake: current Alcohol intake frequency: holidays/special occasions only Patient Tobacco Use Status: Never used Tobacco e-Cigarette/Vaping Use: Never Used Second Hand Smoke Exposure: No service: No Current occupational status: employed Current occupation: [employer] Current occupational exposures/hazards: Yes Cognitive needs: No Hearing needs: No Vision needs: Yes Questionnaire Thrive Questionnaire Date Thrive assessed: 03/09/25 I am a: Patient What is your living situation today?: I have a steady place to live Within the past 12 months, did the food you bought not last and you didn't have the money to get more?: Never true Within the past 12 months, did you worry whether your food would run out before you got money to buy more?: Sometimes True Do you have trouble paying for medicines?: No Do you have trouble getting transportation to medical appointments?: No Do you have trouble paying your heating and electricity bill?: I choose not to answer this question Do you have trouble taking care of your child, family member or friend?: No Do you have trouble with day-to-day activities such as bathing, preparing meals, shopping, managing finances, etc.?: No Are you currently unemployed and looking for a job?: No Are you interested in more education?: No Please select the resources that you would like help with: None Currently or been in a relationship where the following occur: No concerns reported THRIVE Score: 1 PA-7 AMB Questionnaire PA-7 Date PA - 7 assessed: 03/09/25 Source: Developed by Drs. Artie Wheeler, Serina Torres, Jase Sandoval and colleagues, with an educational dennise from [employer]. Physical exam (Primary Care) Tobacco/Smoking Status: Tobacco use Status Tobacco use date assessed 03/09/25 05/04/25 07:21 Patient Tobacco Use Status Never used Tobacco 09/13/25 12:05 e-Cigarette/Vaping Use Never Used 05/04/25 07:21 Thrive Assessment: Date of Thrive Assessment Date Thrive assessed 03/09/25 05/04/25 07:21 Currently or been in a relationship where the following occur: No concerns reported Telehealth Telehealth [facility] Location of provider rendering services: practice address Location of patient: address on file Patient Identification confirmed using: Name, : Yes Telehealth method: video Patient verbally consented to treatment: Yes Patient verbally consented to billing insurance company: Yes Patient informed of any privacy concerns related to visit: Yes Minutes spent on Phone/Video with Pt.: 12 Coding Level of Care Code Tele Est Pt Level 3 (16042) Diagnoses Acute bilateral low back pain without sciatica M54.50 Back pain laterality: bilateral Sciatica presence: without sciatica Assessment & Plan Assessment & Plan (1) Acute lumbar back pain: Code(s): M54.50 - Low back pain, unspecified Category: Medical Qualifiers: Back pain laterality: bilateral Sciatica presence: without sciatica Qualified Code(s): M54.50 - Low back pain, unspecified Plan . Medications: New gabapentin 100 mg PO BID 60 caps 1RF 30 days Refilled baclofen 20 mg PO BEDTIME 10 tabs 0RF
== END 2025-09-25 10:12 | disposition home or self-care (01) ==
LOC: HO.HMCC 06:43
PROVIDERS: PCP Nurse Practitioner Family; Visit Provider Nurse Practitioner Family
DX: M54.50 Low back pain, unspecified (principal)

== ENCOUNTER 2025-10-16 12:41 | Outpatient (AMB) | payer OTHER, SELFPAY ==
--- NOTE | 2025-10-16 12:47 | MHC.PC.OV ---
Vital Signs 10/16/25 12:48 Height 5 ft 6 in Weight 213 lb BMI 34.4 BP 118/72 Blood Pressure Location Lt brachial Position Sitting Pulse 82 Pulse Source Pulse Oximeter Intake Visit Reasons: Follow up Allergies environmental allergies Allergy (Mild, Verified 10/16/25 12:48) sinusitis Tobacco use date assessed: 03/09/25 Dental Screening Dental Screen Date: 10/16/25 Did you have a dental visit in the last 12 months?: Yes Did you have a dental problem in the last 6 months where you did not have access to dental care?: No Was dental information given to patient?: Patient has dentist HPI Follow up HPI Details Chief Complaint The patient presents for a follow-up visit for ongoing chronic lower back pain with radiculopathy. History of Present Illness The patient is a 45 year old individual presenting for follow-up for ongoing chronic lower back pain with radiculopathy. The patient experiences lower transverse back pain with radiation down the left side and into the bilateral buttocks. The patient denies any symptoms of cauda equina syndrome. An x-ray performed on 08/29/2025 revealed mild degenerative disc changes and bilateral arthropathy. The patient previously attempted physical therapy but discontinued it because the pain was too intense. A prior course of prednisone provided some relief. The patient is not currently taking blood thinners. Social History Health Maintenance Review of Systems - Musculoskeletal: Reports chronic lower transverse back pain, bilateral buttock pain, and radiculopathy down the left lower extremity. - Neurological: Denies symptoms of cauda equina syndrome. Physical Exam General: Cooperative, healthy appearing, comfortable, no acute distress and well developed Orientation: Patient oriented x3 Limitations: Positive straight leg raises noted on the left, difficult time doing heel and toe walking Head: Normal to inspection Ears: Hearing grossly normal bilaterally Nose: Normal external nose present Face and sinus: Normal facial exam Eyes: Appearance normal, both eyes and all related structures Neck: Normal visual inspection and Yes full ROM Respiratory: Normal respiratory effort and able to speak in complete sentences. Clear to auscultation bilaterally Cardiovascular: Regular rate and rhythm. Normal S1 and S2 GI: Normal to inspection. Soft to palpation and nontender Skin: No rashes or lesions noted Neuro: Patient oriented x3 Extremities: Radiculopathy down the left lower extremity Results - X-ray (08/29/2025): Showed mild degenerative disc changes and bilateral arthropathy. Plan 1. Low Back Pain With Radiculopathy, Left Side The patient's presentation of chronic low back pain with left-sided radiculopathy, along with a positive straight leg raise on the left, is suggestive of a herniated disc causing nerve impingement. An MRI of the lumbar spine will be ordered to further evaluate for a herniated disc. Given the benefit from a previous steroid course, a dexamethasone taper will be prescribed. NSAIDs will be held for now, but the patient may use naproxen for pain relief after the steroid taper is complete. Discussion Notes I explained to the patient that the symptoms are likely due to a herniated disc compressing a nerve, which causes the radiating pain. I have ordered an MRI to get a definitive diagnosis. For treatment, I have prescribed a dexamethasone taper, noting that steroids have been beneficial in the past. The patient was advised that naproxen can be used for pain after completing the steroid course. We will review the MRI results and determine the next steps in management at a follow-up visit. Patient Instructions - You will be starting a dexamethasone taper to help with your pain. It is a steroid medication. Please take it exactly as prescribed. - Do not take any anti-inflammatory medications like NSAIDs (e.g., naproxen, ibuprofen) while you are on the steroid. You may take naproxen for pain after you finish the entire course of steroids if needed. - An MRI of your lower back has been ordered to get a better look at what is causing your symptoms. Please make sure to get this done. - We will follow up to discuss the results and plan the next steps in your care. [facility] Medical History Lumbar radiculopathy Cervical radiculopathy Osteoarthritis of knees, bilateral Chest congestion Cough Left Achilles tendinitis Plantar fasciitis, left Arthritis History of torn meniscus of knee COVID-19 (~05/2020) GERD (gastroesophageal reflux disease) Surgical History History of colonoscopy H/O lateral meniscus repair of right knee History of transurethral resection of bladder tumor (TURBT) Hx of foot surgery History of esophagogastroduodenoscopy (EGD) Previous section (2007) Family History Father Seizure HTN (hypertension) Diabetes No family history of cancer Mother Diabetes HTN (hypertension) S/P triple vessel bypass Daughter Mental health disorder No family history of cancer Social History Household Members: Family and Children Housing: Apartment Alcohol intake: current Alcohol intake frequency: holidays/special occasions only Patient Tobacco Use Status: Never used Tobacco e-Cigarette/Vaping Use: Never Used Second Hand Smoke Exposure: No service: No Current occupational status: employed Current occupation: [employer] Current occupational exposures/hazards: Yes Cognitive needs: No Hearing needs: No Vision needs: Yes Questionnaire Thrive Questionnaire Date Thrive assessed: 03/09/25 I am a: Patient What is your living situation today?: I have a steady place to live Within the past 12 months, did the food you bought not last and you didn't have the money to get more?: Never true Within the past 12 months, did you worry whether your food would run out before you got money to buy more?: Sometimes True Do you have trouble paying for medicines?: No Do you have trouble getting transportation to medical appointments?: No Do you have trouble paying your heating and electricity bill?: I choose not to answer this question Do you have trouble taking care of your child, family member or friend?: No Do you have trouble with day-to-day activities such as bathing, preparing meals, shopping, managing finances, etc.?: No Are you currently unemployed and looking for a job?: No Are you interested in more education?: No Please select the resources that you would like help with: None Currently or been in a relationship where the following occur: No concerns reported THRIVE Score: 1 PA-7 AMB Questionnaire PA-7 Date PA - 7 assessed: 03/09/25 Source: Developed by Drs. Artie Wheeler, Serina Torres, Jase Sandoval and colleagues, with an educational dennise from [employer]. Physical exam (Primary Care) Vital Signs: Last Vital Signs Pulse 82 10/16/25 12:48 BP 118/72 10/16/25 12:48 BMI result Body Mass Index 34.4 Tobacco/Smoking Status: Tobacco use Status Tobacco use date assessed 03/09/25 10/16/25 12:49 Patient Tobacco Use Status Never used Tobacco 10/16/25 12:49 e-Cigarette/Vaping Use Never Used 10/16/25 12:49 Thrive Assessment: Date of Thrive Assessment Date Thrive assessed 03/09/25 10/16/25 12:49 Currently or been in a relationship where the following occur: No concerns reported Coding Level of Care Code Est Pt Level 3 (26566) Diagnoses Lumbar pain M54.50 Radiculopathy M54.10 Assessment & Plan Assessment & Plan (1) Lumbar pain: Code(s): M54.50 - Low back pain, unspecified Category: Medical (2) Radiculopathy: Code(s): M54.10 - Radiculopathy, site unspecified Category: Medical Plan . Orders: Orders MR lumbar spine wo con Today M54.10 - Radiculopathy, site unspecified, M54.50 - Low back pain, unspecified Medications: New dexamethasone 1 tab 3 times a day for 3 days, 1 tab twice a day for 3 days, 1 tab daily for 3 days 4 mg PO DAILY 18 tabs 0RF 9 days Refilled baclofen 20 mg PO BEDTIME 10 tabs 0RF Discontinued apixaban (Eliquis DVT-PE Treat 30D Start) Discontinued Reason: Doctor's Order 5 mg PO BID 74 ea 0RF
[2025-10-16 12:48] VITALS: BP 118/72; PULSE 82; BMI 34.4
--- OUTSIDE RECORDS SUMMARY | 2025-10-16 16:19 | XMS_ITS | Clinical Summary ---
Author Organization [facility] Address [address] [place] [address] Phone Care Team Providers Care Storage Architect Name Role Phone Unavailable Primary Care Provider [...]
== END 2025-10-16 14:33 | disposition home or self-care (01) ==
LOC: HO.HMCC 12:42
PROVIDERS: PCP Nurse Practitioner Family; Visit Provider Nurse Practitioner Family
DX: M54.50 Low back pain, unspecified (principal); M54.10 Radiculopathy, site unspecified

== ENCOUNTER 2025-10-31 15:16 | Outpatient (REF) | payer OTHER, SELFPAY ==
--- NOTE | ~2025-10-31 | US_ITS ---
EXAMINATION: US TRIPLEX LOWER EXTREMITY, RIGHT CLINICAL INFORMATION: Reevaluate superficial thrombosis COMPARISON: Previous right groin soft tissue ultrasound April 2025 TECHNIQUE: Color-flow triplex imaging with spectral analysis and compression Doppler were performed on the right lower extremity. FINDINGS: Respiratory variation, normal compression and augmented flow are noted throughout the right lower extremity. The visualized common femoral vein, superficial femoral vein, profunda femoral vein, popliteal vein and midcalf peroneal and posterior tibial venous segments show no evidence of deep venous thrombosis. There is no Scott's cyst. There is still a prominent superficial vein in the right groin. This may represent a varicosity communicating with the right inferior epigastric vein. This appears patent with no echogenic material and fully compressible. US/US venous duplex LE RT IMPRESSION: No evidence of deep venous thrombosis involving the right lower extremity. Question superficial varix in the right groin possibly communicating with the right inferior epigastric vein appears patent. Electronically signed by: Shivani Palacios MD 10/31/2025 05:28 PM [facility]
--- OUTSIDE RECORDS SUMMARY | 2025-10-31 19:35 | XMS_ITS | Clinical Summary ---
Author Organization [facility] Address [address] [place] [address] Phone Care Team Providers Care Delivery Consultant Name Role Phone Unavailable Primary Care Provider [...]
--- OUTSIDE RECORDS SUMMARY | 2025-10-31 19:35 | XMS_ITS | Patient Health Record ---
[facility] Organization [facility] Address [address] [facility] [place] [address] Care Team Providers Care Health/Safety Job Titles Name Role Phone Herman Moeller Primary Care Provider Unav ailable Taylor Perez Unavailable [phone] AlanLeonard arias Unavailable [phone] Allergies Allergen (clinical drug ingredient) Drug/Non Drug [...] Status Risk Notes Problem Plantar fascial fibromatosis (76593186) Plantar fascial fibromatosis (M72.2) Active confirmed Problem Plantar wart (23808219) Plantar wart (B07.0) Active confirmed Problem Neuropathy (082537479) Neuropathy (G62.9) Active confirmed Problem Mononeuropathy of lower limb (341859945) Neuritis of right foot (G57.91) Active confirmed Problem Mononeuropathy of lower limb (949917538) Neuritis of left foot (G57.92) Active confirmed Problem Localized, primary osteoarthritis of the ankle and/or foot (021357544) 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) Active confirmed Encounters Encounter Location Date Provider Diagnosis [facility] [address] [facility] [address] [facility] [address] [facility] Leonard Phillips Plan Of Treatment Pending Test Test Name Order Date MRI : Foot, left 08/26/2024 X ray : Ankle, left 3V 08/11/2023 X ray : Foot, left 3V 05/30/2024 X ray : Foot, left 3V 08/26/2024 X ray : Foot, left 3V 02/26/2023 X ray : Foot, right 3V 02/26/2023 [id number] Destruction, 1-14 02/26/2023 [id number] TENDON SHEATH/LIGAMENT 0 04/30/2023 Insurance Providers Payer Name Payer Address Payer Phone Subscriber Number Group Number Insured Name Patient Relationship to Insured Coverage Start Date Coverage End Date [facility] [address] [place] [phone] [id number] Silvana Ruiz Self - patient is the insured Medical (General) History Medical History History ICD Code Anxiety Arthritis Back pain Chicken pox Reflux ( GERD) Surgical History Surgery Date(Month/Year) 09/12/08 [place] Plantar Fasciotomy Left ft 3 knee surgery left 06/20/2024
== END 2025-10-31 15:17 | disposition home or self-care (01) ==
LOC: HO.US 15:16
PROVIDERS: PCP Nurse Practitioner Family; Visit Provider Internal Medicine
DX: I82.811 Embolism and thrombosis of superficial veins of right lower extremity (principal)
CPT/HCPCS: 93971

== ENCOUNTER → 2025-10-31 15:18 | Outpatient (BNV) | payer OTHER, SELFPAY | PROVIDERS: PCP Nurse Practitioner Family; Visit Provider Radiology Diagnostic Radiology | DX: I82.811 Embolism and thrombosis of superficial veins of right lower extremity (principal) | CPT/HCPCS: 93971 ==

== ENCOUNTER 2025-11-13 12:53 | Outpatient (REF) | payer OTHER, SELFPAY ==
[2025-11-13 18:47] LABS: Resp Syncy Virus RNA Qual PCR NEGATIVE (Negative); SARS COV2 PCR INHOUSE NEGATIVE (Negative)
== END 2025-11-13 12:54 | disposition home or self-care (01) ==
LOC: HO.LNP 12:53
PROVIDERS: Nurse Practitioner Family; PCP Nurse Practitioner Family
DX: J06.9 Acute upper respiratory infection, unspecified (principal); R09.89 Other specified symptoms and signs involving the circulatory and respiratory systems
CPT/HCPCS: 87637

== ENCOUNTER 2025-11-13 12:53 | Outpatient (AMB) | payer OTHER, SELFPAY ==
[2025-11-13 14:05] VITALS: BP 112/68; PULSE 87; TEMP 36.9; O2SAT 97; BMI 34.7
--- NOTE | 2025-11-13 14:05 | AM.OFFWIN_ITS ---
Intake Vital Signs 11/13/25 14:05 Height 5 ft 6 in Weight 215 lb BMI 34.7 BP 112/68 Blood Pressure Location Lt brachial Position Sitting Pulse 87 Pulse Source Pulse Oximeter Temp 98.4 F Temp Source Oral Pulse Oximetry (%) 97 Oxygen Delivery Method Room Air Intake Visit Reasons: EP sinue headache for 3 days covid expose Intake Note: Patient presents c/o sinus headache x3 days. Covid exposure on [place]. Patient Tobacco Use Status: Never used Tobacco Allergies environmental allergies Allergy (Mild, Verified 11/13/25 14:09) sinusitis Do you need a note to return to daycare/school/sports/work: No HPI HPI Comments History of Present Illness Details This is a 45-year-old female presenting for evaluation of a sinus headache and COVID exposure. Patient states the past 3 days she has had a sinus headache and a burning sensation in her nose. She denies having any fevers, chills, otalgia, sore throat, cough or shortness for breath. The patient's mother was diagnosed with COVID at [facility] and she spent many hours with her mother in the hospital. Patient has not taken any medication for treatment of her symptoms. [facility] Medical History Lumbar radiculopathy Cervical radiculopathy Osteoarthritis of knees, bilateral Chest congestion Cough Left Achilles tendinitis Plantar fasciitis, left Arthritis History of torn meniscus of knee COVID-19 (~05/2020) GERD (gastroesophageal reflux disease) Surgical History History of colonoscopy H/O lateral meniscus repair of right knee History of transurethral resection of bladder tumor (TURBT) Hx of foot surgery History of esophagogastroduodenoscopy (EGD) Previous section (2007) Family History Father Seizure HTN (hypertension) Diabetes No family history of cancer Mother Diabetes HTN (hypertension) S/P triple vessel bypass Daughter Mental health disorder No family history of cancer Social History Household Members: Family and Children Housing: Apartment Alcohol intake: current Alcohol intake frequency: holidays/special occasions only Patient Tobacco Use Status: Never used Tobacco e-Cigarette/Vaping Use: Never Used Second Hand Smoke Exposure: No service: No Current occupational status: employed Current occupation: [employer] Current occupational exposures/hazards: Yes Cognitive needs: No Hearing needs: No Vision needs: Yes Review of Systems Const All systems reviewed & are unremarkable except as noted in HPI and below Reports as per HPI, Denies body aches, Denies chills, Denies fever(s), Denies headache(s) and Denies weakness Eyes Reports no additional complaints ENT Reports no additional complaints, Denies otalgia, Denies headache(s), Reports sinus pain, Reports sinus pressure and Denies sore throat Card Denies chest pain and Denies dyspnea Resp Denies cough, Denies pain with cough, Denies dyspnea and Denies wheezing GI Reports as per HPI, Denies nausea and Denies vomiting Reports no additional complaints Musc Reports no additional complaints, Denies back pain and Denies myalgias Skin/Breast Reports system reviewed and no additional complaints, except as documented Neuro Reports no additional complaints, Denies headache(s) and Denies weakness Psych Reports no additional complaints Endo Reports no additional complaints Shahram/Lymph Reports no additional complaints Aller/Immun Reports no additional complaints and Denies wheezing Physical Exam Vital Signs: Last Vital Signs Temp 98.4 F 11/13/25 14:05 Pulse 87 11/13/25 14:05 BP 112/68 11/13/25 14:05 Pulse Ox 97 11/13/25 14:05 Oxygen Delivery Method Room Air 11/13/25 14:05 BMI result Body Mass Index 34.7 Const General: cooperative, comfortable, no acute distress, well developed, alert, awake and Physically active; No ill appearing or lethargic Nutritional Appearance: overweight Orientation/consciousness: patient oriented x3 and No lethargic Limitations: no limitations HEENT Head: Yes normal to inspection and Yes normocephalic Ears: hearing grossly normal bilaterally, external ears normal, TM's normal bilaterally and EAC's normal General nose exam: Normal external nose present Face and sinus: No sinuses nontender (frontal sinus tenderness without guarding) and Yes sinus tenderness Mouth: Normal oral and palatal mucosa present, oropharynx normal and moist mucous membranes Throat: Yes posterior oropharynx normal and Yes uvula midline Eyes General: appearance normal, both eyes and all related structures Neck Lymphatic: no lymphadenopathy noted Resp Effort & Inspection: normal respiratory effort, able to speak in complete sentences, not labored, no nasal flaring and not tachypneic Auscultation: clear to auscultation bilaterally Cardio Rate: regular rate Rhythm: regular rhythm Skin General skin exam: no rashes or lesions noted Neuro General: patient oriented x3 Psych Appearance: grossly normal Mental Status: mental status grossly normal Insight: Good insight present (Psych) Judgement: Good judgement present (Psych) Assessment & Plan Assessment & Plan (1) URI, acute: Comment: SARS panel is ordered and results are pending at this time. Code(s): J06.9 - Acute upper respiratory infection, unspecified Plan: Ibuprofen or Tylenol as needed for discomfort; will contact patient directly with the results of respiratory panel. Orders: Orders SARS-CoV2/FLU/RSV Today R09.89 - Other specified symptoms and signs involving the circulatory and respiratory systems Coding Level of Care Code Est Pt Level 3 (77408) Diagnoses URI, acute J06.9 Time Spent (min) 20
--- OUTSIDE RECORDS SUMMARY | 2025-11-13 14:47 | XMS_ITS | Clinical Summary ---
Author Organization [facility] Address [address] [place] [address] Phone Care Team Providers Care Lining Vamper Name Role Phone Unavailable Primary Care Provider [...]
--- OUTSIDE RECORDS SUMMARY | 2025-11-13 14:47 | XMS_ITS | Patient Health Record ---
Author Organization [facility] Address [address] [facility] [place] [address] Care Team Providers Care Binder And Box Builder Name Role Phone Herman Moeller Primary Care Provider Unav ailable Taylor Perez Unavailable [phone] AlanLeonard arias Unavailable [phone] Allergies Allergen (clinical drug ingredient) Drug/Non Drug [...] Status Risk Notes Problem Plantar fascial fibromatosis (11604029) Plantar fascial fibromatosis (M72.2) Active confirmed Problem Plantar wart (86912569) Plantar wart (B07.0) Active confirmed Problem Neuropathy (849702821) Neuropathy (G62.9) Active confirmed Problem Mononeuropathy of lower limb (995130149) Neuritis of right foot (G57.91) Active confirmed Problem Mononeuropathy of lower limb (097592511) Neuritis of left foot (G57.92) Active confirmed Problem Localized, primary osteoarthritis of the ankle and/or foot (958161124) 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) Active confirmed Encounters Encounter Location Date Provider Diagnosis [facility] [address] [facility] [address] [facility] [address] [facility] Leonard Phillips Plan Of Treatment Pending Test Test Name Order Date MRI : Foot, left 08/26/2024 X ray : Ankle, left 3V 08/11/2023 X ray : Foot, left 3V 05/30/2024 X ray : Foot, left 3V 08/26/2024 X ray : Foot, left 3V 02/26/2023 X ray : Foot, right 3V 02/26/2023 [id number] Destruction, 1-14 02/26/2023 [id number] TENDON SHEATH/LIGAMENT 0 04/30/2023 Insurance Providers Payer Name Payer Address Payer Phone Subscriber Number Group Number Insured Name Patient Relationship to Insured Coverage Start Date Coverage End Date [facility] [address] [place] [phone] [id number] Silvana Ruiz Self - patient is the insured Medical (General) History Medical History History ICD Code Anxiety Arthritis Back pain Chicken pox Reflux ( GERD) Surgical History Surgery Date(Month/Year) 09/12/08 [place] Plantar Fasciotomy Left ft 3 knee surgery left 06/20/2024
== END 2025-11-13 15:25 | disposition home or self-care (01) ==
PROVIDERS: PCP Nurse Practitioner Family; Visit Provider Physician Assistant
DX: J06.9 Acute upper respiratory infection, unspecified (principal)